=== PATIENT | female | born 1970 | race Caucasian/White ===

== ENCOUNTER 2018-04-14 00:38 | Outpatient (CLI) | payer OTHER, SELFPAY ==
--- NOTE | 2018-04-14 15:55 | DI.MAMMO_ITS ---
SYMPTOM/DIAGNOSIS: SCREENING, Z12.31 MAMMOGRAMS: Mammograms were interpreted according to the usual protocol including computer analysis with CAD system, tomosynthesis and C view imaging. Comparison is made with prior examinations. Breast density, category A. No masses or microcalcifications are seen. There is nothing to suggest malignancy. IMPRESSION: Negative mammogram. Routine screening is recommended. Category 1A. MQSA ASSESSMENT OF FINDINGS: Negative. Category 1. Patient will receive a letter notifying them of these results. BI-RAD category A. The breasts are almost entirely fatty.
[2018-04-14 16:49] LABS: ALT 101 U/L (12-78); AST 65 U/L (15-37); Albumin 4.1 g/dL (3.4-5.0); Alkaline Phosphatase 146 U/L (46-116); Anion Gap 7.4 mmol/L (3-11); BUN 12 mg/dL (7-18); Bilirubin, Total 0.3 mg/dL (0.2-1.0); CO2 31.6 mmol/L (21.0-32.0); CREATININE 0.86 mg/dL (0.55-1.02); Calcium 9.8 mg/dL (8.5-10.1); Chloride 97 mmol/L (98-107); Cholesterol 281 mg/dL (50-200); Glucose 251 mg/dL (70-100); HDL Cholesterol 57 mg/dL (40-60); LDL CHOLESTEROL 191 mg/dL (<100); Potassium 3.5 mmol/L (3.5-5.1); Sodium 136 mmol/L (136-145); Total Protein 7.9 g/dL (6.4-8.2); Triglyceride 303 mg/dL (30-150)
[2018-04-14 17:09] LABS: Hemoglobin A1C 9.7 % (4.5-6.2)
== END 2018-04-14 00:58 ==
PROVIDERS: PCP Family Medicine; Visit Provider Family Medicine
DX: Z12.31 Encounter for screening mammogram for malignant neoplasm of breast (principal); Z00.00 Encounter for general adult medical examination without abnormal findings; I10 Essential (primary) hypertension; E11.9 Type 2 diabetes mellitus without complications
CPT/HCPCS: 36415; 77063; 77067; 80053; 80061; 83721; 82043; 82570; 83036; 84443

== ENCOUNTER 2018-07-02 10:30 | Outpatient (CLI) | payer OTHER, SELFPAY ==
[2018-07-02 14:12] LABS: Hemoglobin A1C 6.8 % (4.5-6.2)
== END 2018-07-02 10:50 ==
PROVIDERS: PCP Family Medicine; Visit Provider Family Medicine
DX: E11.9 Type 2 diabetes mellitus without complications (principal)
CPT/HCPCS: 36415; 83036

== ENCOUNTER 2018-07-30 07:54 | Emergency (ER) | payer OTHER, SELFPAY ==
[2018-07-30 07:58] VITALS: BP 141/78; PULSE 72; RESP 18; TEMP 36.1; O2SAT 99
--- NOTE | 2018-07-30 08:12 | W.ED.GENAD ---
Discharge Plan Disposition Patient Disposition: HOME Condition: Improving Discharge Details Chief Complaint: RespSymp Clinical Impression: Acute bronchitis with bronchospasm Primary Care Provider: Annette Duncan ED Provider: Titus West Home Meds and New Rx's Prescriptions: New dextromethorphan-guaifenesin 10-100 mg/5 mL liquid 10 ml PO Q6H PRN (Reason: cough) Qty: 120 RF: 0 hydrocodone-acetaminophen 5-325 mg tablet 1 tab PO Q6H PRN (Reason: cough) Qty: 5 RF: 0 Continued Januvia 100 mg tablet 100 mg PO DAILY Qty: 90 RF: 5 lorazepam 0.5 mg tablet 0.5 mg PO DAILY MDD 1 PRN (Reason: agitation) Qty: 30 RF: 3 ranitidine HCl [Zantac 75] 75 mg tablet 75 mg PO BID PRN (Reason: GERD) Qty: 180 RF: 4 benzonatate 200 mg capsule 200 mg PO TID PRN (Reason: cough) Qty: 30 RF: 0 doxycycline hyclate 100 mg capsule 100 mg PO BID Qty: 14 RF: 0 Women's One Daily 1 EACH tablet 1 tab-cap PO DAILY RF: 0 blood-glucose meter 1 EACH misc 1 ea Miscellaneous ONCE Qty: 1 RF: 0 Blood Glucose Test 1 EACH strip 1 ea Miscellaneous DAILY Qty: 100 RF: 12 lancets 1 EACH misc 1 ea Miscellaneous DAILY Qty: 100 RF: 4 loratadine 10 MG tablet 10 mg PO DAILY Qty: 90 RF: 11 ProAir HFA 8.5 GM HFA aerosol inhaler 2 puff Inhalation QID PRNQty: 1 RF: 12 metformin 1,000 MG tablet 1,000 mg PO BID Qty: 180 RF: 12 lisinopril-hydrochlorothiazide 1 EACH tablet 1 tab-cap PO DAILY Qty: 90 RF: 11 estradiol 0.5 MG tablet 1 tab PO DAILY Qty: 90 RF: 3 ibuprofen 600 MG tablet 600 mg PO Q6H PRN Qty: 180 RF: 12 Blood Glucose Test strip .ROUTE .MEDSUPPLY Qty: 100 RF: 6 blood-glucose meter misc .ROUTE .MEDSUPPLY Qty: 1 RF: 0 venlafaxine [Effexor XR] 75 mg capsule,extended release 24hr 75 mg PO DAILY Qty: 90 RF: 12 Discharge Instructions Instructions: Acute Bronchitis (ED) Additional Instructions: Home to rest today. Continue the doxycycline and Tessalon as previously prescribed. May use guaifenesin for cough as well as the prescribed hydrocodone for severe persistent cough. Albuterol as needed for persistent cough with wheeze. Follow-up with clinic if not improving in 5 days time Medical Decision Making 47-year-old female presents from home with weeks of cough and now with production of green sputum and paroxysms of the coughing. She was started on doxycycline and Tessalon yesterday in the office by Dr. Elliott. She arrives with no fever, essentially normal vital signs and oxygenation. She is given DuoNeb updraft, guaifenesin by mouth, referred for chest x-ray and influenza given the differential diagnosis includes viral syndrome/flu, bronchitis, pneumonia. Influenza negative. Chest x-ray without focal infiltrate. I do feel coverage of atypical organisms with doxycycline is appropriate. I will add increased antitussive management, and inhaler to be used as needed, and discussed with her home management as well as follow-up and return precautions. HPI General Mode of arrival: ambulatory. Date/Time Provider Initiated Documentation: 07/30/18 07:55. Limitations to Documentation: no limitations. Information obtained by: patient. History of Present Illness 47 year old F presents to the emergency department with the chief complaint of Persistent cough and production of sputum. Taking doxycycline and Tessalon, described as moderate, Quality is described as aching, and is localized to the chest. Patient reports no radiation. Patient started experiencing this week(s) and it has been intermittent. No relieving factors improve symptom(s), No exacerbating factors reported . Patient notes other (Green sputum). Patient did receive the following treatments prior to arrival, other (Day 2 of doxycycline and Tessalon) HPI Narrative: Persistent cough over 2+ weeks time. Seen in clinic yesterday and started on doxycycline and Tessalon. Now worse, production of green sputum. Tolerated liquids and solids by mouth, no travel. Related Data Home Medications Medication Instructions Recorded Confirmed Women's One Daily 1 tab-cap PO DAILY tab-cap 01/04/13 07/29/18 Blood Glucose Test #100 strip 11/28/16 07/29/18 blood-glucose meter #1 ea 11/28/16 07/29/18 lancets #100 ea 11/28/16 07/29/18 loratadine 10 mg PO DAILY #90 tab-cap 12/02/17 07/29/18 ProAir HFA 2 puff INHALATION QID PRN #1 01/27/18 07/30/18 canister estradiol 1 tab PO DAILY #90 tab-cap 03/31/18 07/29/18 ibuprofen 600 mg PO Q6H PRN #180 tab-cap 03/31/18 07/29/18 lisinopril-hydrochlorothiazide 1 tab-cap PO DAILY #90 tab-cap 03/31/18 07/29/18 metformin 1,000 mg PO BID #180 tab-cap 03/31/18 07/29/18 blood sugar diagnostic strips #100 each 06/04/18 07/29/18 blood-glucose meter #1 each 06/08/18 07/29/18 lorazepam 0.5 mg tablet 0.5 mg PO DAILY PRN #30 tab MDD 1 07/07/18 07/29/18 ranitidine 75 mg tablet 75 mg PO BID PRN #180 tab 07/07/18 07/29/18 sitagliptin 100 mg tablet 100 mg PO DAILY #90 tab 07/07/18 07/29/18 venlafaxine ER 75 mg 75 mg PO DAILY #90 tab-cap 07/13/18 07/29/18 capsule,extended release 24 hr benzonatate 200 mg capsule 200 mg PO TID PRN #30 cap 07/29/18 07/30/18 doxycycline hyclate 100 mg capsule 100 mg PO BID #14 cap 07/29/18 07/30/18 dextromethorphan-guaifenesin 10 ml PO Q6H PRN #120 ml 07/30/18 hydrocodone-acetaminophen 1 tab PO Q6H PRN #5 tab 07/30/18 Previous Rx's Medication Instructions Recorded loratadine 10 mg PO DAILY #90 tab-cap 12/02/17 estradiol 1 tab PO DAILY #90 tab-cap 03/31/18 ibuprofen 600 mg PO Q6H PRN #180 tab-cap 03/31/18 lisinopril-hydrochlorothiazide 1 tab-cap PO DAILY #90 tab-cap 03/31/18 metformin 1,000 mg PO BID #180 tab-cap 08/28/18 blood sugar diagnostic strips #100 each 06/04/18 blood-glucose meter #1 each 06/08/18 lorazepam 0.5 mg tablet 0.5 mg PO DAILY PRN #30 tab MDD 1 07/07/18 ranitidine 75 mg tablet 75 mg PO BID PRN #180 tab 07/07/18 sitagliptin 100 mg tablet 100 mg PO DAILY #90 tab 07/07/18 venlafaxine ER 75 mg 75 mg PO DAILY #90 tab-cap 07/13/18 capsule,extended release 24 hr benzonatate 200 mg capsule 200 mg PO TID PRN #30 cap 07/29/18 doxycycline hyclate 100 mg capsule 100 mg PO BID #14 cap 07/29/18 dextromethorphan-guaifenesin 10 ml PO Q6H PRN #120 ml 07/30/18 hydrocodone-acetaminophen 1 tab PO Q6H PRN #5 tab 07/30/18 Allergies Allergy/AdvReac Type Severity Reaction Status Date / Time codeine AdvReac Unverified 07/29/18 08:45 General Stated Complaint: RespSymp KITA: 3 Review of Systems Review of Systems 7 systems reviewed and otherwise negative [facility] Medical History Sensorineural hearing loss, unilateral (Chronic 04/14/17) Essential hypertension (Chronic 05/28/13) Diabetes mellitus (Chronic 11/22/16) Depression (Chronic 06/18/16) Anxiety (Chronic) Coccydynia (Chronic) Coccyx disorder (Inactive 08/05/17) Anxiety Carcinoid syndrome Chronic rhinitis Coccyx pain Depression Diabetes Endometriosis Hypertension Kidney stones Plantar fascia syndrome Surgical History Abdominal hysterectomy (09/05/16) Appendectomy Bilateral salpingectomy with oophorectomy (09/05/16) Excision, Pilonidal Cyst Family History Mother Alcohol abuse Neoplasm Father No problems noted. Brother Substance abuse Alcohol abuse ADHD (attention deficit hyperactivity disorder) Grandfather Neoplasm Grandfather No problems noted. Grandmother Neoplasm Grandmother No problems noted. Social History Smoking/Tobacco Use Status: Never Exam Narrative Exam Narrative: GEN: awake, alert, oriented 3. Pleasant, well groomed, interactive. HEAD: Normocephalic, atraumatic ENT: Mucous membranes moist, oropharynx unremarkable, External ear exam unremarkable EYES: PERRL, EOMI NECK: Full ROM, no LAURA, no menigismus CHEST/RESP: Nontender, clear to auscultation bilateral, no rhonchi or rales. Patient has persistent paroxysms of cough with discrete end expiratory wheeze CARDIOVASCULAR: RRR, no murmur, rub junior. 2+ Rad pulse bilateral ABDOMEN: Soft, nontender, no mass. +Bowel sounds EXT: Full ROM, no edema, no rash Neuro: Grossly normal neurologic exam, conversant, interactive. Psych: Speech fluent, thoughts congruent, affect normal Course Vital Signs Temperature 36.1 C L 07/30/18 07:58 Pulse 72 07/30/18 07:58 Respiratory Rate 18 07/30/18 07:58 Blood Pressure 141/78 H 07/30/18 07:58 Pulse Oximetry 99 07/30/18 07:58 Temperature 36.1 C L 07/30/18 07:58 Temperature Source Temporal Artery Scan 07/30/18 07:58 Pulse 72 07/30/18 07:58 Respiratory Rate 18 07/30/18 07:58 Respiratory Effort Non-Labored 07/30/18 08:05 Blood Pressure 141/78 H 07/30/18 07:58 Blood Pressure Position Sitting 07/30/18 07:58 Pulse Oximetry 99 07/30/18 07:58 Oxygen Delivery Method Room Air 07/30/18 07:58 Oxygen Flow Rate 0 07/30/18 07:58 Pain Level 2 07/30/18 07:58
[2018-07-30] MEDS: Albuterol/Ipratropium 3 ML UPD VIAL UPD (08:18)
[2018-07-30] MEDS: guaiFENesin/D-METHORPHAN HB 5 ML CUP 10 ML PO (08:18)
--- NOTE | 2018-07-30 09:12 | DI.RAD_ITS ---
SYMPTOM/DIAGNOSIS: PERSISTENT COUGH PA AND LATERAL CHEST: The heart is normal in size. The lungs are clear. The mediastinal structures and pleura appear intact. CONCLUSION: Normal chest.
== END 2018-07-30 09:54 | disposition home or self-care (01) ==
PROVIDERS: Emergency Provider Emergency Medicine; PCP Family Medicine
DX: J20.9 Acute bronchitis, unspecified (principal); I10 Essential (primary) hypertension; E11.9 Type 2 diabetes mellitus without complications; Z79.84 Long term (current) use of oral hypoglycemic drugs
CPT/HCPCS: 87449; 94640; 99283; 71046; J7620

== ENCOUNTER 2019-05-10 01:17 | Outpatient (CLI) | payer OTHER, SELFPAY ==
--- NOTE | 2019-05-10 12:56 | DI.MAMMO_ITS ---
EXAM: MAMMO SCREENING CLINICAL HISTORY: screening Z12.39. TECHNIQUE: Mammograms were interpreted according to the usual protocol including computer analysis w [employer] CAD system, tomosynthesis and C-view imaging. COMPARISON: [id number] FINDINGS: The breasts are composed of fatty density tissue, BI-RADS category A. There are no suspicious masses or microcalcifications. There are no significant changes in comparison with the prior images. IMPRESSION: BI-RADS Cat 1 - Negative Breast Density - Category A - Almost entirely fatty
== END 2019-05-10 01:37 ==
PROVIDERS: PCP Family Medicine; Visit Provider Family Medicine
DX: Z12.31 Encounter for screening mammogram for malignant neoplasm of breast (principal)
CPT/HCPCS: 77063; 77067

== ENCOUNTER 2019-12-01 03:16 | Outpatient (CLI) | payer OTHER, SELFPAY ==
--- NOTE | 2019-12-01 06:30 | DI.US_ITS ---
EXAM: US ABDOMEN CLINICAL HISTORY: abdominal pain with BM,R10.9 TECHNIQUE: Ultrasound performed using standard protocol. COMPARISON: RENAL,PELVIS TRANSVAG US from 11/22/2016 FINDINGS: The liver shows increased echogenicity and decreased through transmission consistent with hepatic jeremy atosis. Dependent portions of the liver are nonvisualized. No focal abnormality seen. There is no evidence of cholelithiasis or biliary dilatation. Visualized portions of the pancreas are unremarkable. Kidneys appear normal with no evidence of hydronephrosis or nephrolithiasis. Abdominal aorta and IVC are of normal diameter. Spleen is unremarkable in appearance. IMPRESSION: Probable hepatic steatosis. No evidence of cholelithiasis. DATA REPOSITORY:
== END 2019-12-01 03:36 ==
PROVIDERS: PCP Family Medicine; Visit Provider Family Medicine
DX: R10.9 Unspecified abdominal pain (principal); K76.0 Fatty (change of) liver, not elsewhere classified; R19.8 Other specified symptoms and signs involving the digestive system and abdomen
CPT/HCPCS: 76700

== ENCOUNTER 2020-03-06 13:02 | Outpatient (CLI) | payer OTHER, SELFPAY ==
[2020-03-08 05:43] LABS: SARS-CoV-2 RNA Undetected (Undetected); SARS-CoV-2 Specimen Source Nasopharynx
== END 2020-03-06 13:22 ==
PROVIDERS: PCP Family Medicine; Visit Provider Family Medicine
DX: R05 Cough (principal)
CPT/HCPCS: U0003

== ENCOUNTER 2020-05-16 12:29 | Outpatient (CLI) | payer OTHER, SELFPAY ==
--- NOTE | 2020-05-16 12:24 | DI.RAD_ITS ---
EXAM: XR FOOT LT COMPLETE CLINICAL HISTORY: left lateral foot pain/no trauma M79.673 PAIN. TECHNIQUE: 2D digital imaging was performed. COMPARISON: No exams were available for comparison FINDINGS: BONES: No acute fracture is present. No bony destructive lesion is seen. Small heel spurs are seen. There is a small accessory navicular as well as an ossicle adjacent to the cuboid. JOINTS: No dislocation present. SOFT TISSUE: Normal. IMPRESSION: Unremarkable radiographs of the left foot. DATA REPOSITORY: RADIATION DOSE DELIVERED:
== END 2020-05-16 12:49 ==
PROVIDERS: PCP Family Medicine; Visit Provider Family Medicine
DX: M79.672 Pain in left foot (principal)
CPT/HCPCS: 73630

== ENCOUNTER 2020-05-30 02:38 | Outpatient (CLI) | payer OTHER, SELFPAY ==
[2020-05-30 17:34] LABS: Microalb ug/mg Crea 23.8 ug/mg Cr
[2020-05-30 17:46] LABS: ALT 47 U/L (14-59); AST 20 U/L (15-37); Albumin 3.8 g/dL (3.4-5.0); Alkaline Phosphatase 123 U/L (46-116); Anion Gap 7.1 mmol/L (3-11); BUN 18 mg/dL (7-18); Bilirubin, Total 0.3 mg/dL (0.2-1.0); CO2 28.9 mmol/L (21.0-32.0); CREATININE 0.61 mg/dL (0.55-1.02); Calcium 9.6 mg/dL (8.5-10.1); Chloride 98 mmol/L (98-107); Glucose 237 mg/dL (74-106); Potassium 3.5 mmol/L (3.5-5.1); Sodium 134 mmol/L (136-145); Total Protein 7.1 g/dL (6.4-8.2)
[2020-05-30 17:51] LABS: Hemoglobin A1C 8.8 % (<5.7)
== END 2020-05-30 02:58 ==
PROVIDERS: PCP Family Medicine; Visit Provider Family Medicine
DX: Z00.00 Encounter for general adult medical examination without abnormal findings (principal); E11.9 Type 2 diabetes mellitus without complications; F32.9 Major depressive disorder, single episode, unspecified; I10 Essential (primary) hypertension
CPT/HCPCS: 36415; 80053; 82043; 82570; 83036

== ENCOUNTER 2020-06-05 02:20 | Outpatient (CLI) | payer OTHER, SELFPAY ==
--- NOTE | 2020-06-05 06:15 | DI.MAMMO_ITS ---
EXAM: MG MAMMO SCREENING CLINICAL HISTORY: screening,Z12.39 TECHNIQUE: Bilateral full field digital CC and MLO mammographic images were obtained with 3D tomosyn thesis and utilizing computer aided detection (CAD). COMPARISON: Available for comparison. FINDINGS: Masses/Architectural Distortion: None seen. There is a biopsy clip again seen in the upper outer quad rant of the right breast. Microcalcifications: No suspicious pleomorphic-type are seen. Skin Thickening/Nipple Retraction: None. IMPRESSION: 1. No significant interval change with no specific features of malignancy noted. 2. Unless there is more urgent need, screening mammography is recommended, as per [employer] guidelines. BI-RADS Category 1 - Negative Breast Density - Category A - Almost entirely fatty A negative radiographic report should not delay biopsy if a dominant or clinically suspicious mass is present. Up to ten percent of cancers are not identified on mammography. A negative report may reinforce clinical impression. Adenosis and dense breasts may obscure an underlying neoplasm. False positive reports average 6 to 10%. Patient will receive a letter notifying them of these results.
== END 2020-06-05 02:40 ==
PROVIDERS: PCP Family Medicine; Visit Provider Family Medicine
DX: Z12.31 Encounter for screening mammogram for malignant neoplasm of breast (principal)
CPT/HCPCS: 77063; 77067

== ENCOUNTER 2020-07-05 03:09 | Outpatient (CLI) | payer OTHER, SELFPAY ==
[2020-07-07 09:37] LABS: COVID-19 RT-PCR Result NEGATIVE (Negative)
== END 2020-07-05 03:29 ==
PROVIDERS: PCP Family Medicine; Visit Provider Family Medicine
DX: Z11.59 Encounter for screening for other viral diseases (principal)
CPT/HCPCS: U0003

== ENCOUNTER 2020-11-29 03:31 | Outpatient (CLI) | payer OTHER, SELFPAY ==
[2020-11-29 12:40] LABS: COMMENT (LAB VIEW ONLY) 71.91 mg/dL; Microalb ug/mg Crea 8.3 ug/mg Cr
[2020-11-29 12:43] LABS: ALT 41 U/L (14-59); AST 20 U/L (15-37); Alkaline Phosphatase 99 U/L (46-116); Anion Gap 8.7 mmol/L (3-11); BUN 12 mg/dL (7-18); Bilirubin, Total 0.5 mg/dL (0.2-1.0); CO2 29.3 mmol/L (21.0-32.0); CREATININE 0.7 mg/dL (0.55-1.02); Calcium 9.6 mg/dL (8.5-10.1); Chloride 101 mmol/L (98-107); Glucose 142 mg/dL (74-106); Potassium 3.8 mmol/L (3.5-5.1); Sodium 139 mmol/L (136-145); Total Protein 7.2 g/dL (6.4-8.2)
[2020-11-29 12:59] LABS: Hemoglobin A1C 9.2 % (<5.7)
== END 2020-11-29 03:32 | disposition home or self-care (01) ==
LOC: LOS 03:31
PROVIDERS: PCP Family Medicine; Visit Provider Family Medicine
DX: E11.9 Type 2 diabetes mellitus without complications (principal); I10 Essential (primary) hypertension
CPT/HCPCS: 36415; 80053; 82043; 82570; 83036

== ENCOUNTER 2021-03-06 04:12 | Outpatient (CLI) | payer OTHER, SELFPAY ==
[2021-03-06 10:11] LABS: Hemoglobin A1C 7.9 % (<5.7)
== END 2021-03-06 04:13 | disposition home or self-care (01) ==
LOC: LBO 04:12
PROVIDERS: PCP Family Medicine; Visit Provider Family Medicine
DX: E11.9 Type 2 diabetes mellitus without complications (principal)
CPT/HCPCS: 36415; 83036

== ENCOUNTER 2021-06-22 13:20 | Emergency (ER) | payer OTHER, SELFPAY ==
[2021-06-22 13:25] VITALS: BP 154/86; PULSE 103; RESP 18; TEMP 36.2; O2SAT 98
[2021-06-22] MEDS: Normal Saline 1,000 ML 1000 ML IV (13:45)
--- NOTE | 2021-06-22 13:45 | DI.CT_ITS ---
Exam(s) CT ABDOMEN PELVIS W EXAM: CT ABDOMEN PELVIS W INDICATION: L abd pain, hematochezia. COMPARISON: CT SACRUM AND/OR COCCYX WO from 08/08/2017 TECHNIQUE: FINDINGS: CT examination of the abdomen and pelvis was performed with a bolus infusion of 100 cc of Omnipaque 3 50. Images obtained through the lung bases are unremarkable. The liver is of homogeneously decreased attenuation consistent with hepatic steatosis.. Gallbladder and bile ducts are CT normal. Pancreas appears normal. Spleen is unremarkable in appearance. Adr right adrenal appears normal. Left adrenal contains a heterogeneous lobulated mass measuring up to about 5.5 cm in diameter. This shows intermediate attenuation, averaging 40-60 Hounsfield units. Follow-up adrenal protocol CT recommended. The kidneys are unremarkable with no evidence of hydronephrosis, nephrolithiasis, or renal mass.. Ur inary bladder unremarkable. Abdominal aorta is of normal diameter and no major vascular abnormality is seen. No abdominal wall hernia. No abdominal or pelvic adenopathy. The uterus appears to be atrophic or absent. There is small quantity of free fluid in the pelvis. Appendix is normal. No evidence of diverticulitis or bowel obstruction. There is marked colonic wall edema involving descending colon, the findings are suggestive of colitis. There is mild pericolonic fat edema noted. IMPRESSION: There are findings suggestive of colitis of the descending colon. Left adrenal mass noted, indeterminate for malignancy, adrenal protocol CT recommended. RADIATION DOSE DELIVERED: 1,125.64mGy.cm Total DLP 1,125.64mGy.cm Total DLP CTDIvol RADIATION OPTIMIZATION: All CT scans at this facility use at least one of these dose optimization te chniques: automated exposure control; mA and/or kV adjustment per patient size (includes targeted exa ms where dose is matched to clinical indication); or iterative reconstruction.
--- NOTE | 2021-06-22 13:51 | W.ED.GENAD ---
Discharge Plan Disposition Patient Disposition: HOME Condition: Stable Discharge Details Clinical Impression: Colitis, Hypokalemia, Lesion of adrenal gland Primary Care Provider: Annette Duncan ED Provider: Florentino Gillespie Home Meds and New Rx's Prescriptions: Continued famotidine [Pepcid] 20 mg tablet 20 mg PO DAILY Qty: 90 RF: 4 mupirocin 2 % ointment 1 applic TP BID PRN (Reason: sore) RF: 0 Humulin 70/30 U-100 KwikPen 100 unit/mL (70-30) insulin pen 25 unit subcut QAM Qty: 15 RF: 4 Women's One Daily 1 EACH tablet 1 tab-cap PO DAILY RF: 0 (DME) blood-glucose meter 1 EACH misc 1 ea Miscellaneous ONCE Qty: 1 RF: 0 (DME) lancets 1 EACH misc 1 ea Miscellaneous DAILY Qty: 100 RF: 4 (DME) Blood Glucose Test Strip 1 ea Miscellaneous DAILY Qty: 100 RF: 4 (DME) Blood Glucose Test Strip See Rx Instructions .ROUTE .MEDSUPPLY Qty: 100 RF: 5 metformin 1,000 mg tablet See Rx Instructions PO BID Qty: 270 RF: 12 ibuprofen 600 mg tablet 600 mg PO Q6H PRN Qty: 180 RF: 12 loratadine 10 mg tablet 10 mg PO DAILY Qty: 90 RF: 11 fluticasone propionate 50 mcg/actuation spray,suspension 2 spray ROCK DAILY Qty: 19.8 RF: 5 lisinopril-hydrochlorothiazide 20-25 mg tablet 1 tab PO DAILY Qty: 90 RF: 11 lorazepam 0.5 mg tablet 0.5 mg PO DAILY MDD 1 PRN (Reason: agitation) Qty: 30 RF: 1 semaglutide 1 mg/dose (2 mg/1.5 mL) pen injector 1 mg SC QWEEK Qty: 15 RF: 5 venlafaxine [Effexor XR] 75 mg capsule,extended release 24hr 75 mg PO DAILY Qty: 90 RF: 12 estradiol 0.5 mg tablet 0.5 mg PO DAILY Qty: 90 RF: 3 albuterol sulfate 90 mcg/actuation aerosol powdr breath activated 2 puff IH Q6H PRN (Reason: bronchospasm) Qty: 1 RF: 0 Discontinued gabapentin 300 mg capsule 300 mg PO TID RF: 0 black cohosh 540 mg capsule See Rx Instructions PO DAILY RF: 0 hydroxyzine HCl 50 mg tablet 50 mg PO Q6H PRN (Reason: itching) Qty: 60 RF: 0 methocarbamol 750 mg tablet 750 mg PO TID Qty: 60 RF: 0 Discharge Instructions Instructions: Hypokalemia (ED), Colitis (ED) Additional Instructions: Please return the stool sample to have stool tested for bacteria. Maintain a clear liquid diet tonight and tomorrow morning and advance diet to bland food tomorrow afternoon as tolerated. Please contact your primary care physician to arrange follow-up. Call on Friday. Be sure to follow-up regarding CT imaging -- additional outpatient diagnostic testing is necessary. Return to the ER for any worsening or new concerning symptoms. Referrals: [facility] [Provider Group] Annette Duncan MD, [place] [Primary Care Provider] - Discharge Data Discharge Date/Time-TO BE ENTERED AT DEPARTURE: 06/22/21 18:23 Medical Decision Making <Titus West MD - Last Filed: 06/22/21 14:58> 50-year-old female states that she has had intermittent episodes of abdominal pain and hematochezia for 3 to 4 years time. Now here in the emergency department after referral from local urgent care where she presented with 3 to 4 days of abdominal discomfort that began with few episodes of emesis that extinguish on its own. She now has had 3 days of left-sided abdominal pain that is crampy, rated 3 out of 10, comes and goes, associated with loose and watery stools and some bright red blood per rectum. No syncope or chest pain. She has not had a fever. Denies any specific food that may have incited this. She arrives to the ER well-appearing and in no significant distress. She is tender in the left side of the abdomen. Differential diagnosis includes colitis, diverticulitis, mass. Patient IV access established, screening laboratories obtained and referred for oral and IV contrast enhanced CT scan. Laboratories: White blood cell count of 13.8, hematocrit 41.8, platelets 345. Chemistry with sodium 136, potassium 2.9, chloride 97, bicarb 31, BUN 70, creatinine 0.7. Glucose 244, LFTs unremarkable. Patient received potassium supplementation for a total of 30 mEq. As the patient is pending CT images at time of shift change, will sign out to Dr Gillespie pending CT and repeat evaluation. <Florentino Gillespie MD - Last Filed: 06/22/21 23:14> 3 PM??care signed out by Dr. West plan to follow-up on CT. CT of the abdomen pelvis was interpreted by radiology: IMPRESSION: 1. Findings of mild colitis of the proximal descending colon. This may be infectious in etiology or could represent inflammatory bowel disease. Recommend clinical correlation. 2. Status post hysterectomy. 3. New small amount of free fluid in the pelvis. 4. 2.3 x 3.9 cm left adrenal nodule, which is indeterminate. Non-emergent adrenal CT is recommended. (Reference: [facility]) 5. Stable 0.9 x 1.3 cm lesion within the left iliac bone, suggesting a benign hemangioma. All results were discussed with the patient. History and diagnostic consistent with likely inflammatory bowel disease. Unlikely infectious etiology given history however I will order fecal bacterial pathogens and C. difficile testing. Patient will need follow-up colonoscopy which I will ask care management to help arrange. I encouraged her to follow-up with her primary care physician on Friday. She understands CT findings will require timely diagnostic follow-up as an outpatient. Patient was encouraged to maintain a clear liquid diet tonight and tomorrow to allow for bowel rest and advance to bland soft diet tomorrow afternoon. Usual customary discharge instructions were reviewed with the patient. HPI <Titus West MD - Last Filed: 06/22/21 14:58> General Mode of arrival: ambulatory. Date/Time Provider Initiated Documentation: 06/22/21 13:20. Limitations to Documentation: no limitations. Information obtained by: patient. History of Present Illness 50 year old F presents to the emergency department with the chief complaint of Left side abdominal pain, diarrhea, bloody rectal effluent, described as moderate, Quality is described as dull, and is localized to the abdomen and left. Patient reports no radiation. Patient started experiencing this day(s) and it has been intermittent. No relieving factors improve symptom(s), No exacerbating factors reported . Patient notes denies fever/chills. Patient did receive the following treatments prior to arrival, none Related Data Home Medications Medication Instructions Recorded Confirmed Women's One Daily 1 tab-cap PO DAILY tab-cap 01/04/13 06/22/21 blood-glucose meter #1 ea 11/28/16 03/08/21 lancets #100 ea 11/28/16 03/08/21 albuterol sulfate 2 puff IH Q6H PRN #1 each 07/30/18 06/22/21 blood sugar diagnostic #100 strip 08/23/19 03/08/21 blood sugar diagnostic #100 ea 04/13/20 03/08/21 metformin 1,000 mg tablet See Rx Instructions PO BID #270 05/11/20 06/22/21 tab-cap ibuprofen 600 mg tablet 600 mg PO Q6H PRN #180 tab-cap 05/30/20 06/22/21 loratadine 10 mg tablet 10 mg PO DAILY #90 tab-cap 05/30/20 06/22/21 fluticasone propionate 50 2 spray ROCK DAILY #19.8 gm 06/22/20 06/22/21 mcg/actuation nasal spray,suspension lisinopril 20 1 tab PO DAILY #90 tab-cap 08/09/20 06/22/21 mg-hydrochlorothiazide 25 mg tablet insulin NPH-regular 70-30 U-100 25 unit SUBCUT QAM #15 ml 10/16/20 06/22/21 insulin 100 unit/mL subcutaneous pen famotidine 20 mg tablet 20 mg PO DAILY #90 tab 11/14/20 06/22/21 lorazepam 0.5 mg tablet 0.5 mg PO DAILY PRN #30 tab MDD 1 11/16/20 06/22/21 semaglutide 1 mg/dose (2 mg/1.5 1 mg SC QWEEK #15 ml 12/05/20 06/22/21 mL) subcutaneous pen injector mupirocin 2 % topical ointment 1 applic TP BID PRN gm 03/08/21 06/22/21 estradiol 0.5 mg tablet 0.5 mg PO DAILY #90 tab-cap 04/10/21 06/22/21 venlafaxine 75 mg capsule,extended 75 mg PO DAILY #90 tab-cap 04/10/21 06/22/21 release 24 hr Previous Rx's Medication Instructions Recorded albuterol sulfate 2 puff IH Q6H PRN #1 each 07/30/18 blood sugar diagnostic #100 strip 08/23/19 blood sugar diagnostic #100 ea 04/13/20 metformin 1,000 mg tablet See Rx Instructions PO BID #270 05/11/20 tab-cap ibuprofen 600 mg tablet 600 mg PO Q6H PRN #180 tab-cap 05/30/20 loratadine 10 mg tablet 10 mg PO DAILY #90 tab-cap 05/30/20 fluticasone propionate 50 2 spray ROCK DAILY #19.8 gm 06/22/20 mcg/actuation nasal spray,suspension lisinopril 20 1 tab PO DAILY #90 tab-cap 08/09/20 mg-hydrochlorothiazide 25 mg tablet insulin NPH-regular 70-30 U-100 25 unit SUBCUT QAM #15 ml 10/16/20 insulin 100 unit/mL subcutaneous pen famotidine 20 mg tablet 20 mg PO DAILY #90 tab 11/14/20 lorazepam 0.5 mg tablet 0.5 mg PO DAILY PRN #30 tab MDD 1 11/16/20 semaglutide 1 mg/dose (2 mg/1.5 1 mg SC QWEEK #15 ml 12/05/20 mL) subcutaneous pen injector estradiol 0.5 mg tablet 0.5 mg PO DAILY #90 tab-cap 04/10/21 venlafaxine 75 mg capsule,extended 75 mg PO DAILY #90 tab-cap 04/10/21 release 24 hr Allergies Allergy/AdvReac Type Severity Reaction Status Date / Time codeine AdvReac Intermediate Nausea Verified 06/22/21 13:28 General Stated Complaint: Abd Prob KITA: 3 Review of Systems <Titus West MD - Last Filed: 06/22/21 14:58> Narrative: Reports similar episodes once or twice a month for the past 3 to 4 years time. No inciting or worsening factors. Denies fever or chills. No longer having vomiting. Loose watery stools. Eight systems reviewed and otherwise negative PFSH <Titus West MD - Last Filed: 06/22/21 14:58> Active Problem List Uncontrolled diabetes mellitus (Acute) Herpes zoster (Acute) Upper back pain on right side (Acute) Neuroma (Acute) Foot pain (Acute) Diverticula of colon (Acute) Encounter for annual physical exam (Acute 06/05/15) Shoulder pain (Acute) Sensorineural hearing loss, unilateral (Chronic 04/14/17) Essential hypertension (Chronic 05/28/13) Diabetes mellitus (Chronic 11/22/16) Depression (Chronic 06/18/16) Anxiety (Chronic) Annual physical exam (Acute 06/05/15) Coccydynia (Chronic) Medical History Abdominal pain (07/03/05) Anemia (03/11/13) Anxiety Breast lump (10/09/10) Bronchitis Calculus of kidney (03/10/14) Carcinoid syndrome Carcinoid syndrome Chronic rhinitis Coccyx disorder (08/05/17) Coccyx pain Depression Diabetes Dysfunctional uterine bleeding (10/09/10) Dysmenorrhea (07/19/15) Encounter for routine gynecological examination (06/05/15) Endometriosis Endometriosis (07/19/15) Epicondylitis Fatigue Hypertension Kidney stones Plantar fascia syndrome 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 Grandmother Neoplasm BREAST Social History Smoking/Tobacco Use Status: Never Second Hand Exposure: Yes Smoking risk assessment performed?: Yes Alcohol Intake: current Drug use: Occasionally Substance use type: other Details: THC Guumm[employer] Caregiver/Support person: No Household members: spouse Housing: house Communication Needs: None Do you need help understanding health information?: Never Pets and animals: Yes Pets and animals: dog(s) Sexually active: Yes Do you think of yourself as: straight/heterosexual Current gender identity: female What is your relationship status?: How often do you talk on the phone with friends or family?: never How often do you attend buddhism or judaism services?: decline to answer Do you belong to any clubs or organized social groups?: no Panel score (0-1 are the most socially isolated patients): 1 What type of physical activity do you participate in: walking Duration: 15-30 minutes/day Frequency: 3-4 times per week Special tea needs: No Seatbelt use: always Drive intox or ride w/intox driver's education instructor: No Do you feel safe at home: Yes Do you feel safe in your relationship?: Yes Exam <Titus Wset MD - Last Filed: 06/22/21 14:58> Narrative Exam Narrative: GEN: awake, alert, oriented 3. Pleasant, well groomed, interactive. HEAD: Normocephalic, atraumatic ENT: Mucous membranes moist, oropharynx unremarkable, External ear exam unremarkable EYES: PERRL, EOMI NECK: Full ROM, no LAURA, no menigismus CHEST/RESP: Nontender, clear to auscultation bilateral, no wheeze/rhonchi/rales CARDIOVASCULAR: Regular and borderline tachycardic, no murmur, rub junior. 2+ Rad pulse bilateral ABDOMEN: Soft, tender left abdomen with no sign of rebound appreciated, no mass. +Bowel sounds EXT: Full ROM, no edema, no rash Neuro: Grossly normal neurologic exam, conversant, interactive. Psych: Speech fluent, thoughts congruent, affect normal Course <Titus West MD - Last Filed: 06/22/21 14:58> Vital Signs Vital signs: Vital Signs Temperature 36.2 C L 06/22/21 13:25 Pulse 103 H 06/22/21 13:25 Respiratory Rate 18 06/22/21 13:25 Blood Pressure 154/86 H 06/22/21 13:25 Pulse Oximetry 98 06/22/21 13:25 Temperature 36.2 C L 06/22/21 13:25 Temperature Source Skin 06/22/21 13:25 Pulse 103 H 06/22/21 13:25 Respiratory Rate 18 06/22/21 13:25 Respiratory Effort Non-Labored 06/22/21 13:31 Blood Pressure 154/86 H 06/22/21 13:25 Pulse Oximetry 98 06/22/21 13:25 Pain Level 3 06/22/21 13:25 Lab/Test Results Lab/Test Results: POC- Test(urine) Negative Sign Out <Titus West MD - Last Filed: 06/22/21 14:58> Sign Out Data: Sign Out Comment: L abd pain, hematochezia. Followup CT. Last updated by Titus West MD at 06/22/21 14:58
[2021-06-22 13:53] LABS: Bilirubin Negative (Negative); Blood Negative (Negative); Clarity Clear (Clear); Glucose >=1000 mg/dL (Negative); Ketones 40 mg/dL (Negative); Leukocyte Esterase Negative (Negative); Nitrite Negative (Negative); Urobilinogen 0.2 EU/dL (Up TO 0.2)
[2021-06-22 14:10] LABS: Abs Immature Grans 0.04 10^3/uL (0.0-0.06); Absolute Basophil Count 0.04 10^3/uL (0.0-0.2); Absolute Lymphocyte Count 3.92 10^3/uL (1.2-3.4); Absolute Monocyte Count 0.86 10^3/uL (0.1-0.8); Absolute Neutrophil Count 8.82 10^3/uL (1.2-6.7); Basophils % 0.3; Eosinophils % 0.9; HCT 41.8 % (36.0-46.0); HGB 14.2 g/dL (11.2-15.7); Immature Grans % 0.3; Lymphocytes % 28.4; MCH 27.7 pg (27.0-33.0); MCV 81.6 fL (80-95); MPV 9.7 fL (8.0-11.0); Monocytes % 6.2; Neutrophils % 63.9; Nucleated RBC 0 %; Platelet Count 345 10^3/uL (130-400); RBC 5.12 10^6/uL (3.93-5.22); RDW 11.9 % (11.7-14.6); RDW-SD 35.4 fL; WBC 13.81 10^3/uL (4.4-10.8)
[2021-06-22 14:11] LABS: Absolute Eosinophil Count 0.12 10^3/uL (0.0-0.7)
[2021-06-22 14:19] LABS: ALT 41 U/L (14-59); AST 19 U/L (15-37); Albumin 3.6 g/dL (3.4-5.0); Alkaline Phosphatase 110 U/L (46-116); Anion Gap 7.6 mmol/L (3-11); BUN 17 mg/dL (7-18); Bilirubin, Total 0.4 mg/dL (0.2-1.0); CO2 31.4 mmol/L (21.0-32.0); CREATININE 0.7 mg/dL (0.55-1.02); Calcium 9.2 mg/dL (8.5-10.1); Chloride 97 mmol/L (98-107); Glucose 244 mg/dL (74-106); Magnesium 1.9 mg/dL (1.8-2.4); Sodium 136 mmol/L (136-145); Total Protein 7.4 g/dL (6.4-8.2)
[2021-06-22 14:21] LABS: Potassium 2.9 mmol/L (3.5-5.1)
[2021-06-22] MEDS: ACETAMINOPHEN 1,000 MG/100 ML BTL 400 MG IVPB (14:23)
[2021-06-22] MEDS: Potassium Chloride Liquid 20 MEQ PKT PO (14:31)
[2021-06-22] MEDS: POTASSIUM CHLORIDE 10 MEQ/100 ML BAG 100 MEQ IVPB (14:31)
[2021-06-22 15:49] VITALS: BP 149/82; PULSE 85; TEMP 36.1; O2SAT 100
[2021-06-22] MEDS: Normal Saline - Diluent 50 ML VIAL IV (16:11)
[2021-06-22] MEDS: Omnipaque 350 MG/ML 100 ML BTL IJ (16:19)
[2021-06-22] MEDS: Breeza Beverage 473 ML BTL 946 ML PO (16:22)
--- NOTE | 2021-06-22 17:05 | DI.VRAD_ITS ---
PROCEDURE INFORMATION: Exam: CT Abdomen And Pelvis With Contrast Exam date and time: 06/22/2021 4:08 PM Age: 50 years old Clinical indication: Abdominal pain; Localized; Patient HX: Left abdomen pain, hematochezia TECHNIQUE: Imaging protocol: Computed tomography of the abdomen and pelvis with contrast. COMPARISON: MRI - PELVIS WO CONTRAST 01/06/2018 2:41 PM FINDINGS: Liver: Normal. No mass. Gallbladder and bile ducts: Normal. No calcified stones. No ductal dilation. Pancreas: Normal. No ductal dilation. Spleen: Normal. No splenomegaly. Adrenal glands: There is a 2.3 x 3.9 cm left adrenal nodule which demonstrates a density of 61 Hounsfield units on this postcontrast scan. This nodule demonstrates mild heterogeneity. Kidneys and ureters: There is a tiny subcentimeter left renal lesion which is too small to characterize but likely represents a benign cyst. There are multifocal regions of renal cortical scarring involving both kidneys, left greater than right. No renal or ureteral stones are identified. There is no hydronephrosis or hydroureter. Stomach and bowel: There is edematous wall thickening of the colon from the proximal descending colon through the mid-distal descending colon, with surrounding mild fat stranding, consistent with mild colitis in this region. There is no evidence for bowel obstruction. Appendix: No evidence of appendicitis. Intraperitoneal space: There is new small amount of free fluid in the pelvis measuring up to 3.9 x 5.5 cm, as seen on image 792, series 5. Vasculature: The aorta and iliac arteries demonstrate mild atherosclerotic calcification without aneurysm formation. Lymph nodes: Unremarkable. No enlarged lymph nodes. Urinary bladder: No bladder stones are identified. Reproductive: There has been a hysterectomy. Bones/joints: There is mild spondylosis at multiple lower thoracic and lumbar levels as well as mild facet arthrosis of the lower lumbar spine. No acute fractures are identified. There is a stable 0.9 x 1.3 cm lesion within the left iliac bone which demonstrates some thickened trabecula within it and may represent a benign hemangioma. Soft tissues: Unremarkable. IMPRESSION: 1. Findings of mild colitis of the proximal descending colon. This may be infectious in etiology or could represent inflammatory bowel disease. Recommend clinical correlation. 2. Status post hysterectomy. 3. New small amount of free fluid in the pelvis. 4. 2.3 x 3.9 cm left adrenal nodule, which is indeterminate. Non-emergent adrenal CT is recommended. (Reference: [facility]) 5. Stable 0.9 x 1.3 cm lesion within the left iliac bone, suggesting a benign hemangioma. REFERENCES: Radha WRIGHT, et al. Management of Incidental Adrenal Masses: A White Paper of the ACR Incidental Findings Committee. J Am Brendan Radiol. 2017;14(8):4418-6849. Dictated and Authenticated by: Phan Mcpherson MD. Ordering:LÁZARO Qureshi MD
[2021-06-22 17:45] VITALS: BP 159/83; PULSE 91; RESP 18; TEMP 36.1; O2SAT 97
--- NOTE | 2021-06-22 17:46 | NUR.NOTE ---
Pt return from [facility], unable to give stool sample at this time, VSS, NAD, warm blanket given, call butler within reach.
[2021-06-22 18:10] VITALS: BP 159/83; PULSE 91; RESP 18; TEMP 36.1; O2SAT 97
== END 2021-06-22 18:23 | disposition home or self-care (01) ==
PROVIDERS: Emergency Medicine; Emergency Provider Student in an Organized Health Care Education/Training Program; PCP Family Medicine
DX: K52.9 Noninfective gastroenteritis and colitis, unspecified (principal); E87.6 Hypokalemia; E27.8 Other specified disorders of adrenal gland; R10.9 Unspecified abdominal pain
CPT/HCPCS: 80053; 81025; 86850; 86900; 86901; 96361; 96365; 96375; 99285; 74177; 81003; 83735; 85025; 99284; J0131; J3480; J3490

== ENCOUNTER 2021-06-27 12:48 | Outpatient (REF) | payer OTHER, SELFPAY ==
[2021-06-27 23:17] LABS: C Diff PCR Negative (Negative)
[2021-06-29 23:21] LABS: Campylobacter PCR Negative (Negative); Salmonella PCR Negative (Negative); Shiga Toxin PCR Negative (Negative); Shigella/Enteroinvasive Ecoli Negative (Negative)
== END 2021-06-27 12:49 | disposition home or self-care (01) ==
LOC: LBN 12:48
PROVIDERS: PCP Family Medicine; Visit Provider Family Medicine
DX: K52.9 Noninfective gastroenteritis and colitis, unspecified (principal)
CPT/HCPCS: 87329; 87493; 87505; 83630; 86674

== ENCOUNTER 2021-07-12 02:35 | Outpatient (CLI) | payer OTHER, SELFPAY ==
[2021-07-12 09:36] LABS: Abs Immature Grans 0.03 10^3/uL (0.0-0.06); Absolute Basophil Count 0.05 10^3/uL (0.0-0.2); Absolute Eosinophil Count 0.16 10^3/uL (0.0-0.7); Absolute Lymphocyte Count 3.54 10^3/uL (1.2-3.4); Absolute Monocyte Count 0.51 10^3/uL (0.1-0.8); Absolute Neutrophil Count 6.27 10^3/uL (1.2-6.7); Basophils % 0.5; Eosinophils % 1.5; HCT 42.1 % (36.0-46.0); HGB 14.1 g/dL (11.2-15.7); Immature Grans % 0.3; Lymphocytes % 33.5; MCH 27.6 pg (27.0-33.0); MCHC 33.5 % (32.0-36.0); MCV 82.5 fL (80-95); MPV 9.5 fL (8.0-11.0); Monocytes % 4.8; Neutrophils % 59.4; Nucleated RBC 0 %; Platelet Count 363 10^3/uL (130-400); RDW-SD 36.1 fL; WBC 10.56 10^3/uL (4.4-10.8)
[2021-07-12 10:30] LABS: C-Reactive Protein 0.99 mg/dL (0.0-0.3); TSH 1.22 uIU/mL (0.36-3.74)
[2021-07-12 10:45] LABS: Vitamin D 25 Total 13.9 ng/mL (30-100)
[2021-07-12 10:48] LABS: Hemoglobin A1C 7.8 % (<5.7)
[2021-07-13 14:16] LABS: ANCA Interpretation Negative (Negative)
[2021-07-13 14:17] LABS: ANA Interpretation Negative (Negative)
== END 2021-07-12 02:36 | disposition home or self-care (01) ==
LOC: LBO 02:35
PROVIDERS: PCP Family Medicine; Visit Provider Surgery
DX: E11.9 Type 2 diabetes mellitus without complications (principal); K52.9 Noninfective gastroenteritis and colitis, unspecified; K62.5 Hemorrhage of anus and rectum; R10.32 Left lower quadrant pain; R93.3 Abnormal findings on diagnostic imaging of other parts of digestive tract
CPT/HCPCS: 36415; 82306; 86255; 87635; 83036; 84443; 85025; 86038; 86140

== ENCOUNTER 2021-07-13 15:28 | Outpatient (REF) | payer OTHER, SELFPAY ==
[2021-07-16 15:39] LABS: Urine Volume 1550 mL; VMA, Adult (>14y) 3.6 mg/24 h (<8.0)
[2021-07-17 08:53] LABS: 5-Hydroxyindoleacetic Acid, U 4.3 mg/24 h (<=7.6); Urine Volume 1550 mL
[2021-07-19 00:04] LABS: Urine Volume 1550 mL
== END 2021-07-13 15:29 | disposition home or self-care (01) ==
LOC: LBN 15:28
PROVIDERS: PCP Family Medicine; Visit Provider Surgery
DX: E11.9 Type 2 diabetes mellitus without complications; E27.8 Other specified disorders of adrenal gland; I10 Essential (primary) hypertension; K52.9 Noninfective gastroenteritis and colitis, unspecified; K62.5 Hemorrhage of anus and rectum; R10.32 Left lower quadrant pain; R93.3 Abnormal findings on diagnostic imaging of other parts of digestive tract; R19.7 Diarrhea, unspecified; R63.4 Abnormal weight loss
CPT/HCPCS: 81050; 82530; 83497; 83789; 84585

== ENCOUNTER 2021-07-17 14:00 | Outpatient (REF) | payer OTHER, SELFPAY ==
[2021-07-21 12:17] LABS: Calprotectin 17.7 mcg/g
== END 2021-07-17 14:01 | disposition home or self-care (01) ==
LOC: LBN 14:00
PROVIDERS: Surgery; PCP Family Medicine; Visit Provider Family Medicine
DX: E11.65 Type 2 diabetes mellitus with hyperglycemia (principal); E27.8 Other specified disorders of adrenal gland; I10 Essential (primary) hypertension; K52.9 Noninfective gastroenteritis and colitis, unspecified; R10.32 Left lower quadrant pain
CPT/HCPCS: 83630; 83993

== ENCOUNTER 2021-07-18 00:59 | Outpatient (CLI) | payer OTHER, SELFPAY ==
[2021-07-18 11:25] LABS: Source Nasal/Nares
[2021-07-18 14:02] LABS: COVID-19 PCR Negative (Negative)
== END 2021-07-18 01:00 | disposition home or self-care (01) ==
LOC: LBO 00:59
PROVIDERS: PCP Family Medicine; Visit Provider Surgery
DX: Z20.822 Contact with and (suspected) exposure to COVID-19 (principal)
CPT/HCPCS: 87635

== ENCOUNTER 2021-07-20 08:11 | Day surgery (SDC) | payer OTHER, SELFPAY ==
--- NOTE | 2021-07-19 22:25 | PDOC.DSDIS_ITS ---
Discharge Plan Disposition Patient Disposition: HOME Condition: Good Discharge Details Reason For Visit: colon scope Attending Provider: Kimberli Macdonald Primary Care Provider: Annette Duncan Home Meds and New Rx's Prescriptions: Continued famotidine [Pepcid] 20 mg tablet 20 mg PO DAILY Qty: 90 RF: 4 mupirocin 2 % ointment 1 applic TP BID PRN (Reason: sore) RF: 0 Humulin 70/30 U-100 KwikPen 100 unit/mL (70-30) insulin pen 25 unit subcut QAM Qty: 15 RF: 4 metoprolol succinate 25 mg tablet extended release 24 hr 25 mg PO DAILY Qty: 30 RF: 5 metformin 1,000 mg tablet See Rx Instructions PO BID Qty: 270 RF: 12 Saccharomyces boulardii [Daily Probiotic (S. boulardii)] 250 mg capsule 250 mg PO BID RF: 0 Women's One Daily 1 EACH tablet 1 tab-cap PO DAILY RF: 0 (DME) blood-glucose meter 1 EACH misc 1 ea Miscellaneous ONCE Qty: 1 RF: 0 (DME) lancets 1 EACH misc 1 ea Miscellaneous DAILY Qty: 100 RF: 4 (DME) Blood Glucose Test Strip 1 ea Miscellaneous DAILY Qty: 100 RF: 4 (DME) Blood Glucose Test Strip See Rx Instructions .ROUTE .MEDSUPPLY Qty: 100 RF: 5 ibuprofen 600 mg tablet 600 mg PO Q6H PRN Qty: 180 RF: 12 loratadine 10 mg tablet 10 mg PO DAILY Qty: 90 RF: 11 fluticasone propionate 50 mcg/actuation spray,suspension 2 spray ROCK DAILY Qty: 19.8 RF: 5 lisinopril-hydrochlorothiazide 20-25 mg tablet 1 tab PO DAILY Qty: 90 RF: 11 lorazepam 0.5 mg tablet 0.5 mg PO DAILY MDD 1 PRN (Reason: agitation) Qty: 30 RF: 1 semaglutide 1 mg/dose (2 mg/1.5 mL) pen injector 1 mg SC QWEEK Qty: 15 RF: 5 venlafaxine [Effexor XR] 75 mg capsule,extended release 24hr 75 mg PO DAILY Qty: 90 RF: 12 estradiol 0.5 mg tablet 0.5 mg PO DAILY Qty: 90 RF: 3 ergocalciferol (vitamin D2) 1,250 mcg (50,000 unit) capsule 50,000 unit PO .3 times week Qty: 13 RF: 4 albuterol sulfate 90 mcg/actuation aerosol powdr breath activated 2 puff IH Q6H PRN (Reason: bronchospasm) Qty: 1 RF: 0 Discontinued polyethylene glycol 3350 17 gram/dose powder 238 g PO ONCE Qty: 238 RF: 0 bisacodyl [Dulcolax (bisacodyl)] 5 mg tablet,delayed release (DR/EC) 5 mg PO ONCE Qty: 4 RF: 0 Discharge Instructions Additional Instructions: DSU Colonoscopy Post- Op Instructions Instructions for Everyone who is given Anesthesia: For your safety, please do the following for the next twenty-four (24) hours: *Do Not operate a motor vehicle (car, truck, motorcycle, etc.) *Do Not drink alcoholic beverages or use any recreational drugs for the first 24 hours or while taking pain medications. The medications in your body may have a reaction that can be dangerous. *Do Not make any important decisions or sign any important papers. Findings: poor prep no large masses or tumors noted Follow up: need to repeat w/ 2-day prep 1. No lifting over 20 pounds or strenuous activity for the first 24 hours after your procedure. After 24 hours there are no restrictions on your activity but you may feel fatigued for a few days. 2. After you arrive home you may have a light meal and return to your normal diet as you can tolerate it without feeling sick to your stomach. 3. You may have a bloated, gaseous feeling in your belly (abdomen) after a colonoscopy. Passing gas and belching will help. Walking or lying down on your left side with your knees flexed may relieve the discomfort. Call the office at [phone] (Office) or [phone] (Hospital) right away if you notice any of the following: a.Vomiting of blood or ?coffee ground stools?. b.Rectal bleeding 1Tbsp, blood clots or continuous bleeding. c.Severe belly (abdominal) pain. d.A hard distended belly (abdomen) and an inability to pass gas. 4. Please don?t expect to have a normal BM (bowel movement) for 2-3 days after your procedure. 5. If there are questions regarding the findings of your procedure, please contact your doctor 6. If you are unable to contact your doctor with a problem, contact the hospital at [phone]. 7. Continue all your regular medications unless directed otherwise. I understand the above instructions and have no questions. Signature of Patient or Adult Escort Name of Responsible Adult Escort Signature of Nurse Date/Time Activity:: see above Diet:: see above Discharge Orders Discharge Orders: Discharge Order (Routine); Ordered 07/19/21 Ordered By: Kimberli Macdonald DS: Diagnosis Discharge Diagnosis (1) Weight loss, unintentional: Status: Acute (2) Acute diarrhea: Status: Acute (3) Adrenal mass: Status: Acute (4) Abnormal CT scan, colon: Status: Acute (5) LLQ abdominal pain: Status: Acute (6) Adrenal mass greater than 4 cm in diameter: Status: Acute (7) BRBPR (bright red blood per rectum): Status: Acute (8) Colitis: Status: Acute
--- NOTE | 2021-07-19 22:28 | W.COLOREPORT ---
Colonoscopy Report Date of procedure: 07/20/21 Pre-op diagnosis general: diarrhea/rectal bleeding/abnormal CT Surgeon: Kimberli Macdonald Anesthesia Type: General:No Airway Pathology: other Complications: None Prep: Miralax/Dulcolax Procedure Description: After informed consent was obtained the patient was taken to the procedure room and placed in a left decubitous position. Monitors were applied and a time out was done. The patients name, date of , procedure, allergies to medications and metal in their body was reviewed. The patient was then sedated. Once sedated and comfortable a rectal exam was done. External exam was normal. Internal exam revealed a normal sphincter tone and no palpable masses. Pt had no results from prep yesterday. THis was an unprepped exam Because of the problems that patient has been having we did elect to proceed with the procedure. This was an unprepped exam. I was able to reach the cecum. The cecum was full fluids I could not see anything in the cecum. There is no signs of bleeding. There are no large masses. The mucosa in the sigmoid was grossly normal. 2 L of saline was used to lavage the colon. Biopsy 30 cm taken. There are no rectal masses or hemorrhoids, Internal or external. These results do not explains the pain and bleeding and the changes on CT. She will be rescheduled for repeat exam in August and we will do a 2-day prep.
[2021-07-20 08:39] VITALS: BP 120/75; PULSE 88; RESP 16; TEMP 36.9; O2SAT 98
--- NOTE | 2021-07-20 08:47 | W.ANESPRE ---
General Info Date of Service Date Performed: 07/20/21 Height: 5 ft 4 in Weight: 84.8 kg Body Mass Index (BMI): 32.1 Surgical Procedure: Operation Date: 07/20/21 09:20 Proposed Procedures Side Surgeon p Colonoscopy w/Biopsy Kimberli Macdonald, Meds Allergies and Home Medications Allergies Allergy/AdvReac Type Severity Reaction Status Date / Time codeine AdvReac Intermediate Nausea Verified 07/20/21 08:26 Home Medication Medication Instructions Recorded Women's One Daily 1 tab-cap PO DAILY tab-cap 01/04/13 blood-glucose meter #1 ea 11/28/16 lancets #100 ea 11/28/16 albuterol sulfate 2 puff IH Q6H PRN #1 each 07/30/18 blood sugar diagnostic #100 strip 08/23/19 blood sugar diagnostic #100 ea 04/13/20 ibuprofen 600 mg tablet 600 mg PO Q6H PRN #180 tab-cap 05/30/20 loratadine 10 mg tablet 10 mg PO DAILY #90 tab-cap 05/30/20 fluticasone propionate 50 2 spray ROCK DAILY #19.8 gm 06/22/20 mcg/actuation nasal spray,suspension lisinopril 20 1 tab PO DAILY #90 tab-cap 08/09/20 mg-hydrochlorothiazide 25 mg tablet insulin NPH-regular 70-30 U-100 25 unit SUBCUT QAM #15 ml 10/16/20 insulin 100 unit/mL subcutaneous pen famotidine 20 mg tablet 20 mg PO DAILY #90 tab 11/14/20 lorazepam 0.5 mg tablet 0.5 mg PO DAILY PRN #30 tab MDD 1 11/16/20 semaglutide 1 mg/dose (2 mg/1.5 1 mg SC QWEEK #15 ml 12/05/20 mL) subcutaneous pen injector mupirocin 2 % topical ointment 1 applic TP BID PRN gm 03/08/21 estradiol 0.5 mg tablet 0.5 mg PO DAILY #90 tab-cap 04/10/21 venlafaxine 75 mg capsule,extended 75 mg PO DAILY #90 tab-cap 04/10/21 release 24 hr metformin 1,000 mg tablet See Rx Instructions PO BID #270 07/05/21 tab-cap metoprolol succinate 25 mg 25 mg PO DAILY #30 tab 07/05/21 tablet,extended release 24 hr Saccharomyces boulardii 250 mg 250 mg PO BID 07/09/21 capsule ergocalciferol (vitamin D2) 1,250 50,000 unit PO .3 times week #13 07/12/21 mcg (50,000 unit) capsule cap Current Visit Medications: Current Medications Generic Name Dose Route Start Last Admin Trade Name Freq PRN Reason Stop Dose Admin Hyoscyamine Sulfate 0.125 mg 07/19/21 22:29 Hyoscyamine 0.125 Mg Sl/Oral/Chew SL DIRECTED PRN Ringer's Solution 1,000 mls @ 80 mls/hr 07/20/21 06:00 IV 08/18/21 23:59 INFUSION [facility] IV Miscellaneous Supplies 1 each 07/20/21 06:00 Iv Access IV 08/18/21 23:59 DIRECTED YAMILETH Ondansetron HCl 4 mg 07/19/21 22:29 Ondansetron 4 Mg/2 Ml Vial IVP Q4H PRN PRN Nausea / Vomiting Sodium Chloride 0 ml 07/20/21 06:00 Normal Saline Flush 10 Ml Syr IV 08/18/21 23:59 PRN PRN Sodium Chloride 0 ml 07/20/21 06:00 Normal Saline 10 Ml Vial IJ 08/18/21 23:59 DIRECTED PRN Sterile Water 0 ml 07/20/21 06:00 Water,Injection,Sterile 10 Ml Vial IJ 08/18/21 23:59 DIRECTED PRN PFSH Active Problems Active Problems: Problem Status Onset Code Weight loss, unintentional R63.4 Acute diarrhea R19.7 Adrenal mass E27.[address] scan, colon R93.3 LLQ abdominal pain R10.32 Adrenal mass greater than 4 cm in diameter E27.8 BRBPR (bright red blood per rectum) K62.5 Colitis K52.9 Hypokalemia E87.6 Lesion of adrenal gland E27.9 Uncontrolled diabetes mellitus E11.65 Herpes zoster B02.9 Upper back pain on right side M54.9 Neuroma D36.10 Foot pain M79.673 Diverticula of colon K57.30 Encounter for annual physical exam 06/05/15 Z00.00 Shoulder pain M25.519 Sensorineural hearing loss, unilateral 04/14/17 H90.5 Essential hypertension 05/28/13 I10 Diabetes mellitus 11/22/16 E11.9 Depression 06/18/16 F32.9 Anxiety F41.9 Annual physical exam 06/05/15 Z00.00 Coccydynia M53.3 Medical History Active Problem List Uncontrolled diabetes mellitus (Acute) Herpes zoster (Acute) Upper back pain on right side (Acute) Neuroma (Acute) Foot pain (Acute) Diverticula of colon (Acute) Encounter for annual physical exam (Acute 06/05/15) Shoulder pain (Acute) Sensorineural hearing loss, unilateral (Chronic 04/14/17) Essential hypertension (Chronic 05/28/13) Diabetes mellitus (Chronic 11/22/16) Depression (Chronic 06/18/16) Anxiety (Chronic) Annual physical exam (Acute 06/05/15) Coccydynia (Chronic) Medical History Abdominal pain (07/03/05) Anemia (03/11/13) Anxiety Breast lump (10/09/10) Bronchitis Calculus of kidney (03/10/14) Carcinoid syndrome Carcinoid syndrome Chronic rhinitis Coccyx disorder (08/05/17) Coccyx pain Depression Diabetes Dysfunctional uterine bleeding (10/09/10) Dysmenorrhea (07/19/15) Encounter for routine gynecological examination (06/05/15) Endometriosis Endometriosis (07/19/15) Epicondylitis Fatigue Hypertension Kidney stones Plantar fascia syndrome 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) Right lower quadrant abdominal pain (07/03/05) Surgical History Surgical History Abdominal hysterectomy (09/05/16) [facility] Appendectomy 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 Bilateral salpingectomy with oophorectomy (09/05/16) [facility] Excision, Pilonidal Cyst History of appendectomy History of excision of mass Tobacco Smoking/Tobacco Use Status: Never Passive smoking exposure: Yes Second hand exposure: Yes Alcohol Alcohol Intake: current Alcohol intake frequency: a few times a month Substance Use Substance use: Occasionally Substance use type: other Details: THC Gummies - been a week Vital Signs and Lab Results Vital Signs Most Recent Vital Signs in EMR: Most Recent Vital Signs Temp Pulse Resp BP Pulse Ox 36.9 C 88 16 120/75 98 07/20/21 08:39 07/20/21 08:39 07/20/21 08:39 07/20/21 08:39 07/20/21 08:39 Lab Results Blood Type / Crossmatch: Patient ABO/Rh O Positive 06/22/21 13:45 06/22/21 Antibody Screen NEGATIVE 06/22/21 13:45 06/22/21 Complete Blood Count: White Blood Count 10.56 10^3/uL (4.4-10.8) 07/12/21 09:13 07/12/21 Red Blood Count 5.10 10^6/uL (3.93-5.22) 07/12/21 09:13 07/12/21 Hemoglobin 14.1 g/dL (11.2-15.7) 07/12/21 09:13 07/12/21 Hematocrit 42.1 % (36.0-46.0) 07/12/21 09:13 07/12/21 Platelet Count 363 10^3/uL (130-400) 07/12/21 09:13 07/12/21 Complete Metabolic Panel: Sodium Level 136 mmol/L (136-145) 06/22/21 13:45 06/22/21 Potassium Level 2.9 mmol/L (3.5-5.1) L 06/22/21 13:45 06/22/21 Chloride Level 97 mmol/L (98-107) L 06/22/21 13:45 06/22/21 Carbon Dioxide Level 31.4 mmol/L (21.0-32.0) 06/22/21 13:45 06/22/21 Blood Urea Nitrogen 17 mg/dL (7-18) 06/22/21 13:45 06/22/21 Creatinine 0.7 mg/dL (0.55-1.02) 06/22/21 13:45 06/22/21 Estimated GFR/1.73 m2 >= 60.00 (mL/min/1.73m2) 06/22/21 13:45 06/22/21 Magnesium Level 1.9 mg/dL (1.8-2.4) 06/22/21 13:45 06/22/21 Calcium Level 9.2 mg/dL (8.5-10.1) 06/22/21 13:45 06/22/21 Albumin 3.6 g/dL (3.4-5.0) 06/22/21 13:45 06/22/21 Glucose Level 244 mg/dL (74-106) H 06/22/21 13:45 06/22/21 Hemoglobin A1c 7.8 % (<5.7) H 07/12/21 09:13 07/12/21 C-Reactive Protein 0.99 mg/dL (0.0-0.3) H 07/12/21 09:13 07/12/21 Liver Function Panel: Alanine Aminotransferase (ALT/SGPT) 41 U/L (14-59) 06/22/21 13:45 06/22/21 Aspartate Amino Transf (AST/SGOT) 19 U/L (15-37) 06/22/21 13:45 06/22/21 Coagulation Panel: No Data to Display Cardiac Panel: No Data to Display Arterial Blood Gas: No Data to Display Venous Blood Gas: No Data to Display Pancreas Panel: No Data to Display Thyroid Panel: Thyroid Stimulating Hormone (TSH) 1.22 uIU/mL (0.36-3.74) 07/12/21 09:13 07/12/21 Infectious Disease: Coronavirus (COVID-19)(PCR) Negative (Negative) 07/18/21 09:10 07/18/21 Coronavirus 2019 Source Nasal/Nares 07/18/21 09:10 07/18/21 Blood Cultures: No Data to Display Toxicology Panel: No Data to Display Panel: No Data to Display Anesthesia Assessment and Plan Anesthesia History Personal History: No History of Anesthesia Complications Family History: No Family History of Anesthesia Complications Exercise Tolerance Exercise Tolerance: Metabolic Equivalents>4 Pertinent Negatives Pertinent Negatives: No Symptoms of GERD, No Major Cardiovascular Symptoms or Complaints and No Major Pulmonary Symptoms or Complaints Cardiac & Pulmonary Exam Cardiac Exam: Normal S1/S2 Heart Sounds Pulmonary Exam: Clear Bilateral Breath Sounds Implantable Cardiac Device Does patient have a Pacemaker or an ICD?: No Airway Exam Known Difficult Airway: No Mallampati Class: 2 Mouth Opening: Normal (> 3cm) Thyromental Distance: Greater than 3 cm Neck Range of Motion: Full ROM Neck Circumference: Normal Teeth Condition: Normal Dentition ASA Classification ASA Score: ASA 3 Emergency Case?: No NPO Status NPO Status: NPO Clears >2 hours, Solids >8 hours Status Status: History of Hysterectomy Anesthesia Plan Resuscitation Status: Full Code Anesthesia Technique: General Anesthesia Airway Planned: Natural Airway Monitors Used: Standard Monitors
[2021-07-20] MEDS: Lactated Ringers 1,000 ML 80 ML IV (08:50)
[2021-07-20 08:52] VITALS: BMI 32.1
--- NOTE | 2021-07-20 09:40 | BOWEL_PTH ---
PATIENT: Lynne Henderson LOC: [facility] U#:[id number] AGE/SX: 50/F ROOM: RE07/20/[address]: Kimberli Macdonald : 1970 BED: DIS: 07/20/2021 SPEC #: [id number] RECD: 07/20/21 12:58 STATUS: MAYLIN REQ #: [id number] RAY: 07/20/21 09:[address]: Kimberli Macdonald DEPT: Surgical Specimen RECD BY: Yuki Collins ENTERED: 07/20/21 13:00 SP TYPE: Bowel OTHR DR: Annette Duncan MD, DC Tissues: 1 - BIOPSY BOWEL Procedures: GROSS AND MICRO LEVEL 4 Comments: [id number]
[2021-07-20 09:52] VITALS: BP 139/79; PULSE 87; RESP 16; TEMP 36.2; O2SAT 95
--- NOTE | 2021-07-20 10:03 | W.ANESPOSTOP ---
Postoperative Evaluation Date, Time and Location Date Performed: 07/20/21 Time Performed: 10:04 Patient Location: Day Surgery Unit Vital Signs Most Recent Imported Vital Signs: Most Recent Vital Signs Temp Pulse Resp BP Pulse Ox 36.9 C 88 16 120/75 98 07/20/21 08:39 07/20/21 08:39 07/20/21 08:39 07/20/21 08:39 07/20/21 08:39 Pain Score Most Recent Pain Score: Most Recent Pain Score Pain Level 0 07/20/21 08:39 Assessment Mental Status: Awake (Alert & Oriented to Patient Baseline) Airway and Respiratory Function: Patent airway with normal (patient baseline) respiratory exam Cardiovascular Function: Hemodynamically Stable Hydration Status: Adequately Hydrated Nausea & Vomiting: No Nausea or Vomiting Pain: Pt. Denies Any Pain Peripheral Nerve Block: Patient did not receive a nerve block
[2021-07-20 10:25] VITALS: BP 131/85; PULSE 72; RESP 16; TEMP 36.5; O2SAT 98
== END 2021-07-20 11:15 | disposition home or self-care (01) ==
LOC: SUR 08:11
PROVIDERS: PCP Family Medicine; Visit Provider Surgery
PROC: 0DJD8ZZ Inspection of Lower Intestinal Tract, Via Natural or Artificial Opening Endoscopic (ICD-10-PCS; CPT 45378; principal; 2021-07-20 09:15)
DX: R63.4 Abnormal weight loss (principal); R19.7 Diarrhea, unspecified; K62.5 Hemorrhage of anus and rectum; E11.9 Type 2 diabetes mellitus without complications
CPT/HCPCS: 45380; 88305; J2405; J2704

== ENCOUNTER 2021-08-09 02:06 | Outpatient (CLI) | payer OTHER, SELFPAY ==
[2021-08-09] MEDS: Gadoterate meglumine 20 ML VIAL 10 ML IVP (08:42)
--- NOTE | 2021-08-09 08:50 | DI.MRI_ITS ---
Exam(s) MR ABDOMEN WO/W EXAM: MR ABDOMEN WO/W CLINICAL HISTORY: adrenal mass,e27.8 TECHNIQUE: Multiplanar multisequence MRA of the Abdomen was performed. CONTRAST MATERIAL: IV Contrast: 17 mL of Dotarem contrast administered. COMPARISON: CT CT ABDOMEN PELVIS W from 06/22/2021 FINDINGS: Liver: The liver measures 19 cm in length. Pancreas: Unremarkable. Gallbladder and Bile Ducts: Unremarkable. Adrenals: The right adrenal gland is unremarkable. There is a left adrenal mass which measures 3.9 c m transverse by 2.6 cm AP x 2.4 cm craniocaudad. There is loss of signal on the opposed phase images compared to the inphase images. There is mild enhancement following contrast administration. Kidneys: There is a 4.6 mm simple cyst in the left kidney. Spleen: Unremarkable. Aorta: Unremarkable. Soft Tissues: Unremarkable. Bone: Within normal limits for the patient's age. Lymph Nodes: Unremarkable. IMPRESSION: 3.9 x 2.6 x 2.4 cm left adrenal mass. It shows loss of signal on the opposed phase images on the MRI examination. There is mild enhancement noted. Findings are suggestive of a adrenal adenoma. A fol low-up examination in 1 year may be obtained to monitor stability. DATA REPOSITORY:
== END 2021-08-09 02:26 ==
PROVIDERS: PCP Family Medicine; Visit Provider Surgery
DX: E27.8 Other specified disorders of adrenal gland (principal)
CPT/HCPCS: 74183

== ENCOUNTER 2021-10-15 02:31 | Outpatient (CLI) | payer OTHER, SELFPAY ==
[2021-10-15 11:00] LABS: HCT 45.2 % (36.0-46.0); HGB 15.4 g/dL (11.2-15.7); MCH 27.3 pg (27.0-33.0); MCHC 34.1 % (32.0-36.0); MCV 80.1 fL (80-95); MPV 9.3 fL (8.0-11.0); Platelet Count 381 10^3/uL (130-400); RBC 5.64 10^6/uL (3.93-5.22); RDW 11.6 % (11.7-14.6); RDW-SD 33.6 fL; WBC 10.51 10^3/uL (4.4-10.8)
[2021-10-15 12:21] LABS: CREATININE 0.7 mg/dL (0.55-1.02)
[2021-10-18 10:50] LABS: Homovanillic Acid, VH 1.9 mg/g Cr (<8.0); Vanillylmandelic Acid, VH 3.7 mg/g Cr (<7.0)
== END 2021-10-15 02:32 | disposition home or self-care (01) ==
LOC: LBO 02:31
PROVIDERS: Surgery; PCP Family Medicine; Visit Provider Family Medicine
DX: E27.8 Other specified disorders of adrenal gland (principal); R93.3 Abnormal findings on diagnostic imaging of other parts of digestive tract; K62.5 Hemorrhage of anus and rectum
CPT/HCPCS: 36415; 85027; 82565; 83150; 84585

== ENCOUNTER 2022-02-01 03:17 | Outpatient (CLI) | payer OTHER, SELFPAY ==
--- OUTSIDE RECORDS SUMMARY | 2022-02-01 03:19 | XMS_ITS | Encounter Summary ---
:1970 Author Organization [place] [address] Care Team Providers Name Role Phone Annette Duncan MD Primary Care Provider Reason for Visit Reason Comments Follow-up Encounter Details Date Type Department Care Team Description 11/16/2021 Office Visit General Surgery at [facility], H/O melany luna [facility] adrenalectomy [facility] [address] [place] [facility] [id number] [place] [address] [phone] Social History Tobacco Use Types Packs/Day Years Used Date Never Smoker Smokeless Tobacco: Never Used Alcohol Habits Answer Date Recorded How often do you have a drink containing alcohol? Not asked How many drinks containing alcohol do you have on a typical Not asked day when you are drinking? How often do you have six or more drinks on one occasion? No t asked Comment: 2/month 09/05/2021 Sex Assigned at Date Recorded Female 08/13/2021 1:53 PM EST documented as of this encounter Last Filed Vital Signs Vital Sign Reading Time Taken Comments Blood Pressure 144/76 11/16/2021 11:29 AM EDT Pulse 91 11/16/2021 11:29 AM EDT Temperature - - Respiratory Rate 16 11/16/2021 11:29 AM EDT Oxygen Saturation 99% 11/16/2021 11:29 AM EDT Inhaled Oxygen Concentration - - Weight 83.1 kg (183 lb 3.2 oz) 11/16/2021 11:29 AM EDT Height - - Body Mass Index 31.43 11/01/2021 2:04 PM EDT documented in this encounter Progress Notes Nery Frederick MD - 11/16/2021 11:30 AM EDT ENDOCRINE SURGERY FOLLOW UP VISIT S/P left adrenalectomy (laparoscopic with robotic assist) on 11/01/2021. No issues at surgery. Since then recovering well. Pain improving. Good appetite. Moving bowels without issue. Exam: Incisions well healed, no erythema/drainage. Dermabond removed. Scab still on larger incision with some minor dimpling of skin. Plan: May gradually return to regular activity in the next 2-4 weeks - build up slowly. Scar massage to incisions. Pathology - benign adrenal adenoma - no follow up needed. RTC prn. documented in this encounter Plan of Treatment Not on filedocumented as of this encounter Visit Diagnoses Diagnosis H/O partial adrenalectomy Personal history of surgery to other org ans documented in this encounter Care Teams Hand Cutter Apprentice Relationship Specialty Start Date End Date Annette Duncan MD PCP - General Family Medicine 01/20/[address] [place] [address] documented as of this encounter
--- OUTSIDE RECORDS SUMMARY | 2022-02-01 03:19 | XMS_ITS | Clinical Summary ---
:1970 Author Organization [facility] [place] [address] Care Team Providers Name Role Phone Annette Duncan MD Primary Care Provider Allergies Active Allergy Reactions Severity Noted Date Comments Codeine Nausea And Vomiting 08/17/2021 Medications Medication Sig Dispensed Refills Start Date End Date Status metFORMIN Twice a day 0 07/01/2017 Active (GLUCOPHAGE) 1,000 mg Tablet HumuLIN 70/30 U-100 INJECT 25 UNITS 0 07/06/2021 Active KwikPen Insulin Pen SUBCUTANEOUSLY EVERY MORNING estradioL (ESTRACE) TAKE 1 TABLET BY 0 03/30/2021 Active 0.5 mg Tablet MOUTH DAILY famotidine (Pepcid) TAKE 1 TABLET BY 0 04/18/2021 Active 20 mg Tablet MOUTH DAILY ergocalciferoL, TAKE 1 CAPSULE BY 0 08/02/2021 Active vitamin D2, (vitamin MOUTH THREE TIMES D2) 50,000 unit PER WEEK Capsule [employer] FunnelTouch Ultra Test TEST ONCE DAILY 0 03/30/2021 Active Strip lisinopriL-hydrochlo Daily 0 06/05/2015 Active rothiazide (zestoretic) 20-25 mg Tablet loratadine TAKE 1 TABLET BY 0 05/14/2021 A ctive (Claritin) 10 mg MOUTH DAILY Tablet metoprolol succinate 0 08/14/2021 Active XL (Toprol-XL) 25 mg Tablet Sustained Release 24 hr venlafaxine XR Daily 0 07/10/2017 Acti ve (Effexor-XR) 75 mg Capsule, Sust. Release 24 hr Ozempic 1 mg/dose (4 once a week. 0 08/15/2021 Active mg/3 mL) Pen Injector fluticasone SHAKE LIQUID AND USE 0 06/11/2021 Active propionate (Flonase) 2 SPRAYS IN EACH 50 mcg/actuation NOSTRIL DAILY [place], Suspension HYDROmorphone Take 1 tablet by 7 tablet 0 11/02/2021 Active (Dilaudid) 2 mg mouth every 4 hours Tablet as needed for Pain. Additional Information Patient not taking. Reported on 11/16/2021 ibuprofen (Advil) 600 mg Take 1 tablet by mouth 30 tablet 12 Active Tablet every 6 hours as needed for Pain. acetaminophen (Tylenol) 325 Take 3 tablets by mouth 30 tablet 1 11/02/2021 Active mg Tablet every 6 hours as needed for Pain. Active Problems Problem Noted Date H/O partial adrenalectomy 11/01/2021 Adrenal mass greater than 4 cm in diameter with no his tory of malignant 08/24/2021 neoplasm Encounters Date Type Specialty Care Team Description 11/16/2021 Office Visit General Surgery [facility] H/O partial MD Daniel adrenalectomy 11/01/2021 - Hospital Encounter General Surgery [facility] 11/02/2021 MD Daniel from Last 3 Months Social History Tobacco Use Types Packs/Day Years [...] Date Recorded Female 08/13/2021 1:53 PM EST Last Filed Vital Signs Vital Sign Reading Time Taken Comments Blood Pressure 144/76 11/16/2021 11:29 AM EDT Pulse 91 11/16/2021 11:29 AM EDT Temperature 36.3 ??C (97.3 ??F) 11/02/2021 8:00 AM EDT Respiratory Rate 16 11/16/2021 11:29 AM EDT Oxygen Saturation 99% 11/16/2021 11:29 AM EDT Inhaled Oxygen Concentration - - Weight 83.1 kg (183 lb 3.2 oz) 11/16/2021 11:29 AM EDT Height 162.6 cm (5' 4.02) 11/01/2021 2:04 PM EDT Body Mass Index 31.43 11/01/2021 2:04 PM EDT Plan of Treatment Health Maintenance Due Date Last Done Comments Covid-19 Vaccine (#1) 1977 HIV screen 1990 Hepatitis C Screening 1990 Lipid Screening 1990 Tdap adult 11/26/1991 Tetanus vaccine 11/26/1991 HPV test 2002 PAP Smear 2002 Breast Cancer Share Decision Needed 2012 Diabetes Screening (HgbA1C or Glucose) 2012 Influenza (Flu) vaccine (1 - 04/04/2021 Influenza standard series) Colonoscopy 09/05/2026 09/05/2021, 09/05/2021 Procedures Procedure Name Priority Date/Time Associated Diagnosis Comme nts POCT GLUCOSE Routine 11/02/2021 8:20 AM Results f or this EDT procedure are i n the results section . POCT GLUCOSE Routine 11/02/2021 5:19 AM Results f or this EDT procedure are i n the results section . POCT GLUCOSE Routine 11/02/2021 12:54 AM Results for this EDT procedure are i n the results section . from Last 3 Months Results (ABNORMAL) POCT Glucose (11/02/2021 8:20 AM EDT)Only the most recent of3 results within the time period is included. P athologist Signature POC Glucose 200 (H) 65 - 199 [facility] Comment: Supplemental ranges: <140 mg/dL before meals <180 mg/dL all other times of the day Specimen Anatomical Collection Method Collection Time Receive d Time (Source) Location / / Volume Laterality Blood 11/02/2021 8:20 AM 8:20 EDT AM EDT [facility] MD POINT OF CARE TEST ORDERABLE S Performing Organization Address City/State/[place] [address] from Last 3 Months Insurance Payer Benefit Plan Subscriber ID Effective Dates Phone Address Type / Group [facility] PPO [id number] 2020-Kristian [phone] [address] [place] [address] Advance Directives Latest Code Status on File Code Status Date Activated Date Inactivated Comments Attempt Cardiopulmonary Resuscitation - 11/01/2021 10:13 PM 022 2:10 PM Inpatient Code Status decision made by: Patient Attempt Cardiopulmonary Resuscitation - 11/01/2021 1:56 PM 022 10:13 PM Inpatient Code Status decision made by: Patient Care Teams Bookkeeper Relationship Specialty Start Date End Date Annette Duncan MD PCP - General Family Medicine 01/20/[address] [place] [address]
--- OUTSIDE RECORDS SUMMARY | 2022-02-01 03:20 | XMS_ITS | Encounter Summary ---
:1970 Author Organization [place] [address] Care Team Providers Name Role Phone Annette Duncan MD Primary Care Provider Encounter Details Date Type Department Care Team Description 08/21/2021 Telephone Gastroenterology at [facility] [place] [address] Social History Tobacco Use Types Packs/Day Years Used Date Never Smoker Sex Assigned at Date Recorded Female 08/13/2021 1:53 PM EST documented as of this encounter Miscellaneous Notes Telephone Encounter - Danya, November - 08/21/2021 1:11 PM EST Lynne Henderson [id number] Diagnosis/Indication: 2 DAY PREP. colitis on CT scan at [facility] 1. Have you ever had a/an Colonoscopy before? Yes: Date 07/20/21 [facility] If yes, did you have any problems with the procedure? No What type of sedation was used: Other: UNKNOWN 2. Do you take any blood thinners or have you been diagnosed with a bleeding disorder that increasesyour risk of bleeding with procedures? No 3. Do you have a Pacemaker or Defibrillator device? No 4. Are you a diabetic? Yes: Controlled by diet or medication? Both 5. Do you have any Allergies to Eggs, Latex or Medications? Yes: SEE EDH 6. Do you take any Oral Iron Supplements (Including multi-vitamins)? Yes (Multivitamin) 7. Do you have a history of three or more abdominal surgeries? No 8. Have you had a problem with sedation or anesthesia? No 9. Do you use a c-pap machine or oxygen tank? C-Pap 10. Do you take prescription narcotic pain medications, including suboxone or methodone? No 11. Do you have a preference regarding the gender of your provider? No Preference 12. Is there any other information you would like to us to note for the provider and nursing team who will perform your case? No 13. Say to patient: You must have a responsible constitution party who will drive you to your procedure, stay on campus for the entire duration of your procedure, and drive you home from your procedure? *Please Verify the height and weight, and adjust if height and/or weight have changed* Estimated body mass index is 32.5 kg/m?? as calculated from the following: Height as of 08/17/21: 162.5 cm (5' 3.98). Weight as of 08/17/21: 85.8 kg (189 lb 3.2 oz). Age:50 y.o. documented in this encounter Plan of Treatment Not on filedocumented as of this encounter Visit Diagnoses Not on filedocumented in this encounter Care Teams Stone Chimney Mason Relationship Specialty Start Date End Date Annette Duncan MD PCP - General Family Medicine 01/20/[address] [place] [address] documented as of this encounter
--- OUTSIDE RECORDS SUMMARY | 2022-02-01 03:20 | XMS_ITS | Encounter Summary ---
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 Procedures PRO LAP, ADRENALECTOMY @ROBOTIC LAPAROSCOPIC ADRENALECTOMY (WRVU 20.73) MODIFIER ROBOT,DAVINCI XI Emergency IPI Referral ID Status Reason Start Date Expiration Date Visits Requ ested Visits Authorized [id number] 1 1 Encounter Details Date Type Department Care Team Description 11/01/2021 Anesthesia Event Main Operating Room Rio Calabrese MD [facility] [place] [address] [facility] [place] [address] [place] [address] Anesthesia Record Procedure Summary Procedure Name Responsible Anesthesia Start Anesthesia Stop Anesthesiologist Time Time @ROBOTIC LAPAROSCOPIC Rio Woodruff MD 11/01/21 1556 /08/25 ADRENALECTOMY (WRVU 20.73) (Left Flank) Events Date Time Event Comment 11/01/2021 1432 1556 AN Verify 1556 Start 1556 An Start Data 1607 An Induction 1609 An Intubation 1616 Anesthesia Ready 1631 Quick Note Surgeon requests no carlos a. 1640 Procedure Start 164 Quick Note Abd insufflation at 15mmHg 1748 Quick Note Switched BP cuff to left arm. 1849 Handoff Intra-procedure anesthesia care was transferred afte r review of the patient's history, current anesthetic/surgical status and procedural p kimberlee, anticipated issues and expected post-op erative course (including disposition.) Deon Pickard CRNA 1902 An Data Art Cuff on Leg morin siently/ back to arm for BP readings 2022 Extubation/LMA Out 2022 an stop data 2022 Recovery or ICU Handoff Patient care was transferred to the destination unit staff after review of the patient's medica l history, current anesthetic/surgi crystal status and plan, according to the Provider Handoff Checklist. 2035 Stop Name Total Midazolam 4 mg fentaNYL 100 mcg IV Lidocaine 100 mg Propofol 250 mg Rocuronium 160 mg Ondansetron 4 mg ceFAZolin (Ancef) 2 g in dextrose 5% 100 mL infusion 2 g Ketamine 10 mg/mL 30 mg Dexmedetomidine 50 mcg Dexmedetomidine INF 189.25 mcg Propofol INF 2,453.59 mg Labetalol 20 mg Insulin Regular Human 14 Units Insulin Regular INF 11.72 Units Sugammadex 200 mg ketorolac (Toradol) (30 mg/mL) injection 15 mg HYDROmorphone 2 mg/mL 1 mg lactated ringers infusion 600 mL Sodium Chloride 0.9% 1,000 mL Agents Name O2 Air N2O Sevoflurane (et) Blood No blood administrations on file. Lines, Drains, and Airways Type Details Placement Removal NG/OG Tube 11/01/21; 1612; [place] sump; 11/01/21 1612 by Willi young, 18 Fr; mouth; Secured; GISELA Bello CRNA Incision 11/01/21; 1642; abdomen; 11/01/21 1642 by Nick laparoscopic punctures CONNIE Hawkins (specify); 5 Trocar Sites PIV 11/01/21; 1425; metacarpal 11/01/21 1425 by 0408/25 1024 by Guevara vein (top of hand), right; Africa Hassan RN Debra L RN [id number] catheter system; 20 gauge, 1 in length; Donavan Hassan RN; distraction, intradermal injection, tolerated well, appears comfortable, age-appropriate response; no longer indicated, catheter/device intact, removed per policy/procedure, site care per policy/procedure; 11/02/21; 1024 ETT Mask Ventilation: Easy (1); 11/01/21 1609 by Willi young, 11/01/212022 by ETT Type: Cuffed, Oral; ETT AURORA Bello Ange A, Size: 7.5 mm; Mac Blade: 4; AURORA Notes: Asleep, Pre-O2, Stylette; Attempts: 1; Laryngoscopy Grade: 1; ETT Placement Verified By: Auscultation, Capnometry; Secured at Teeth: 21 cm; Inserted by: Kami SIMON PIV 11/01/21; 1613; dorsal arch 11/01/21 1613 by Willi young, 11/02/21 1023 by Guevara, vein (top of hand), left; AURORA Bello RN [id number] catheter system; 18 gauge; Sammy SMITH; no longer indicated, removed per policy/procedure, site care per policy/procedure, catheter/device intact; 11/02/21; 1023 documented in this encounter Social History Tobacco Use Types Packs/Day Years [...] PM EST documented as of this encounter OR Notes Anesthesia Postprocedure Evaluation - Rio Woodruff MD - 11/02/2021 2:19 AM EDT Department of Anesthesiology Post-procedure Note Patient: Lynne Henderson Procedure Summary Date: 11/01/21 Room / Location: [facility] OR [facility] MAIN OR Anesthesia Start: 1555 Anesthesia Stop: 2035 Procedures: @ROBOTIC LAPAROSCOPIC ADRENALECTOMY (WRVU 20.73) (Left Flank) MODIFIER ROBINA CHRISTY (N/A ) Diagnosis: (LEFT ADRENAL NEOPLASM) Surgeons: Nery Frederick MD Responsible Provider: Rio Woodruff MD Anesthesia Type: general ASA Status: 2 All Anesthesia Providers: Anesthesiologist: Rio Woodruff MD; Jose Alberto Christianson DO AUTOMOTIVE REPAIR TECHNICIAN: Eugenia Mcclure CRNA; Ange Pickard CRNA Vitals Value Taken Time BP 100/59 11/02/21 0100 Temp 36.5 ??C (97.7 ??F) 11/01/21 2245 Pulse 87 11/01/21 2246 Resp 16 11/02/21 0100 SpO2 94 % 11/02/21 0218 Pain Level 4 11/01/21 2300 Vitals shown include unvalidated device data. Patient Location: PACU/[facility] Level of Consciousness: Awake and Alert Pain Management: Satisfactory Analgesia PONV: None Cardiovascular Status: At Baseline and Hemodynamically Stable Respiratory Status: At Baseline and Room Air Postoperative Fluid Status: Intravascular EUvolemia Possible Anesthetic Complications: NONE apparent at time of evaluation Final Primary Anesthesia Type: General (The anesthetic type performed was the same as planned.) Comments: Rio Woodruff MD Anesthesia Preprocedure Evaluation - Jose Alberto Christianson DO - 11/01/2021 11:14 AM EDT Pre-Anesthesia Evaluation for: Lynne Henderson a 50 y.o. female. Procedure(s): @ROBOTIC LAPAROSCOPIC ADRENALECTOMY (WRVU 20.73) MODIFIER ROBINA CHRISTY Patient Active Problem List Diagnosis Date Noted ??? 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 No pertinent past medical history. Past Surgical History: Procedure Laterality Date ??? PRO COLONOSCOPY, DIAGNOSTIC N/A 09/05/2021 COLONOSCOPY, DIAGNOSTIC performed by Kristina Alcocer MD at [facility] ENDOSCOPY Social History Tobacco Use ??? Smoking status: Never Smoker ??? Smokeless tobacco: Never Used Substance Use Topics ??? Alcohol use: Not on file Comment: 2/month Social History Substance and Sexual Activity Drug Use Yes ??? Frequency: 1.0 times per week ??? Types: Marijuana Comment: edibles and inhalant Allergies Allergen Reactions ??? Codeine Nausea And Vomiting Medications: MAR and/or home medications have been reviewed. Physical Exam: Preprocedure Vitals Current as of 11/01/21 1114 No BP, pulse, respiration, SpO2, or temperature recorded. Height: Weight: BMI: IBW: Airway Assessment: Mallampati: I TM distance: >3 FB Neck ROM: full Cardiovascular Assessment: Rhythm: regular Rate: normal Pulmonary Assessment: breath sounds clear to auscultation Dental Assessment: Misc Assessment: Patient is wearing No contact(s). IV access: Peripheral line Last Filed Perioperative Cognitive Screening None Anesthesia Plan: ASA 2 general, with a(n) intravenous induction 50 yr old female for robotic assisted laparoscopic adrenalectomy. PMH: htn, DM, anxiety, depression and colitis. Patient has a history of carcinoid appendix. It doesn't appear that this lesion is a pheochromocytoma. Normal metanephrines/normetanephrines. Free cortisol is normal as well. Geneeral with ETT, 2 IVs and possible arterial line. No arterial line needed. Most likely a benign adenoma. Gen'l ETT NPO No changes in her health. Vaccinated for covid Region - Other Informed Consent: Anesthetic plan and risks discussed with patient. Plan discussed with AUTOMOTIVE REPAIR TECHNICIAN and attending. Anesthesia Screening documented in this encounter Plan of Treatment Not on filedocumented as of this encounter Visit Diagnoses Not on filedocumented in this encounter Administered Medications Inactive Administered Medications - up to 3 most recent administrations Medication Order MAR Action Action Date Dose Rate Site ceFAZolin (Ancef) 2 g in dextrose 5% Given 11/01/2021 4:15 PM ED T 2 g 100 mL infusion 2 g, Intravenous, SUPPLY SPECIALIST TO O.R., 1 dose, On Enriqueta 11/01/21 at 1415, Administer over 30 Minutes, Indication for (Active or Suspected): Prophylaxis dexmedetomidine (Precedex) (4 mcg/mL) bolus Given 11/01/2021 4:07 PM EDT 50 mcg injection (Anesthsia) Intravenous, PRN, Starting on Enriqueta 11/01/21 at 1607, Until Enriqueta 11/01/21 at 2022, Anesthesia Intra-op, Routine dexmedetomidine (Precedex) Rate/Dose 11/01/2021 6:29 0.4 mcg/kg/hr 8 .57 mL/hr (4 mcg/mL) in sodium Change PM EDT chloride 0.9% 50 mL infusion Intravenous, CONTINUOUS PRN, Starting on Enriqueta 11/01/21 at 1607, Until Enriqueta 11/01/21 at 2022, Anesthesia Intra-op Rate/Dose Change 11/01/2021 5:53 PM EDT 0.5 mcg/kg/hr 10.713 mL/hr Rate/Dose Change 11/01/2021 5:29 PM EDT 0.7 mcg/kg/hr 14.997 mL/hr fentaNYL (pf) (50 mcg/mL) multi-dose Given 11/01/2021 5:35 PM ED T 50 mcg injection Intravenous, PRN, Starting on Enriqueta 11/01/21 at 1710, Until Enriqueta 11/01/21 at 2022, Anesthesia Intra-op, Routine Given 11/01/2021 5:10 PM EDT 50 mcg HYDROmorphone (Dilaudid) (2 mg/mL) multi-dose Given 8:29 PM EDT 0.4 mg injection solution Intravenous, PRN, Starting on Enriqueta 11/01/21 at 1955, Until Enriqueta 11/01/21 at 2022, Anesthesia Intra-op, Routine Given 11/01/2021 8:05 PM EDT 0.2 mg Given 11/01/2021 7:55 PM EDT 0.4 mg insulin regular (HumuLIN R,NovoLIN R) (100 Given 11/01/2021 7:37 PM EDT 4 Units unit/mL) injection vial Intravenous, PRN, Starting on Enriqueta 11/01/21 at 1839, Until Enriqueta 11/01/21 at 2022, Anesthesia Intra-op, Routine Given 11/01/2021 6:39 PM EDT 10 Units insulin regular (Myxredlin) (1 Rate/Dose Change 11/01/2021 7:37 7 U nits/hr 7 mL/hr unit/mL) in sodium chloride PM EDT 0.9% 100 mL infusion Intravenous, CONTINUOUS PRN, Starting on Enriqueta 11/01/21 at 1839, Until Enriqueta 11/01/21 at 2022, Anesthesia Intra-op, Routine New Bag 11/01/2021 6:39 PM EDT 5 Units/hr 5 mL/hr ketamine (Ketalar) (10 mg/mL) IV bolus Given 11/01/2021 4:39 PM EDT 30 mg injection (Anesthesia) Intravenous, PRN, Starting on Enriqueta 11/01/21 at 1639, Until Enriqueta 11/01/21 at 2022, Anesthesia Intra-op ketorolac (Toradol) (30 mg/mL) injection Given 11/01/2021 8:04 PM EDT 15 mg Intravenous, PRN, Starting on Enriqueta 11/01/21 at 2004, Until Enriqueta 11/01/21 at 2022, Anesthesia Intra-op, Routine labetaloL (Normodyne) (5 mg/mL) multi-dose Given 11/01/2021 5:29 PM EDT 5 mg injection Intravenous, PRN, Starting on Enriqueta 11/01/21 at 1704, Until Enriqueta 11/01/21 at 2022, Anesthesia Intra-op, Routine Given 11/01/2021 5:18 PM EDT 5 mg Given 11/01/2021 5:04 PM EDT 5 mg lactated ringers infusion Restarted 11/01/2021 3:56 PM EDT 1,000 mL, at 100 mL/hr, Intravenous, CONTINUOUS, Starting on Enriqueta 11/01/21 at 1415, Until Enriqueta 11/01/21 at 2314, Day of Surgery (Day of Procedure) New Bag 11/01/2021 2:28 PM EDT 1,000 mLs 100 mL/hr lidocaine (pf) (Xylocaine) (20 mg/mL) 2% Given 11/01/2021 4:07 P M EDT 100 mg injection syringe Intravenous, PRN, Starting on Enriqueta 11/01/21 at 1607, Until Enriqueta 11/01/21 at 2022, Anesthesia Intra-op, Routine midazolam (pf) (Versed) (1 mg/mL) multi-dose Given 11/01/2021 3: 59 PM EDT 2 mg injection Intravenous, PRN, Starting on Enriqueta 11/01/21 at 1552, Until Enriqueta 11/01/21 at 2022, Anesthesia Intra-op, Routine Given 11/01/2021 3:52 PM EDT 2 mg ondansetron (pf) (Zofran) (2 mg/mL) inje ction Given 11/01/2021 7:44 PM EDT 4 mg Intravenous, PRN, Starting on Enriqueta 11/01/21 at 1944, Until Enriqueta 11/01/21 at 2022, Anesthesia Intra-op, Routine propofoL (Diprivan) (10 Rate/Dose 11/01/2021 8:02 50 mcg/kg/min 25.7 1 mg/mL) infusion Change PM EDT mL/hr Intravenous, CONTINUOUS PRN, Starting on Enriqueta 11/01/21 at 1607, Until Enriqueta 11/01/21 at 2022, Anesthesia Intra-op, Routine Rate/Dose Change 11/01/2021 7:43 PM EDT 100 mcg/kg/min 51.42 mL/hr Rate/Dose Change 11/01/2021 6:45 PM EDT 75 mcg/kg/min 38.565 mL/hr propofoL (Diprivan) 10 mg/mL bolus injection Given 7:47 PM EDT 50 mg (Anesthesia) Intravenous, PRN, Starting on Enriqueta 11/01/21 at 1607, Until Enriqueta 11/01/21 at 2022, Anesthesia Intra-op Given 11/01/2021 4:07 PM EDT 200 mg rocuronium (Zemuron) (10 mg/mL) multi-dose Given 11/01/2021 7:01 PM EDT 20 mg injection Intravenous, PRN, Starting on Enriqueta 11/01/21 at 1607, Until Enriqueta 11/01/21 at 2022, Anesthesia Intra-op, Routine Given 11/01/2021 6:30 PM EDT 20 mg Given 11/01/2021 6:10 PM EDT 20 mg sodium chloride 0.9% infusion New Bag 11/01/2021 7:47 PM EDT Intravenous, CONTINUOUS PRN, Starting on Enriqueta 11/01/21 at 1613, Until Enriqueta 11/01/21 at 2022, Anesthesia Intra-op New Bag 11/01/2021 4:13 PM EDT sugammadex (Bridion) 100 mg/mL injection Given 11/01/2021 7:56 PM EDT 200 mg Intravenous, PRN, Starting on Enriqueta 11/01/21 at 1956, Until Enriqueta 11/01/21 at 2022, Anesthesia Intra-op, Routine documented in this encounter Care Teams Fruit Grader Relationship Specialty Start Date End Date Annette Duncan MD PCP - General Family Medicine 01/20/[address] [place] [address] documented as of this encounter
--- OUTSIDE RECORDS SUMMARY | 2022-02-01 03:20 | XMS_ITS | Encounter Summary ---
:1970 Author Organization [facility] [place] [address] Care Team Providers Name Role Phone Annette Duncan MD Primary Care Provider Reason for Visit Auth/Cert Specialty Diagnoses / Procedures Referred By Contact Refer red To Contact Diagnoses Abnormal findings on diagnostic imaging of other parts of digestive tract Colitis [address] colitis on CT scan at OSH Procedures PRO COLONOSCOPY, DIAGNOSTIC PRO COLONOSCOPY, REMV LESN, SNARE PRO COLONOSCOPY, BIOPSY COLONOSCOPY, DIAGNOSTIC Referral ID Status Reason Start Date Expiration Date Visits Requ ested Visits Authorized [id number] 1 1 Encounter Details Date Type Department Care Team Description 09/05/2021 Hospital Encounter Gastroenterology at [facility] Warren Alcocer, [facility] [place] [address] [facility] [phone] [place] [address] Social History Tobacco Use Types Packs/Day Years [...] Sign Reading Time Taken Comments Blood Pressure 113/67 09/05/2021 8:40 AM EST Pulse 100 09/05/2021 8:45 AM EST Temperature 36.1 ??C (96.9 ??F) 09/05/2021 7:13 AM EST Respiratory Rate 17 09/05/2021 8:45 AM EST Oxygen Saturation 98% 09/05/2021 8:50 AM EST Inhaled Oxygen Concentration - - Weight 85.7 kg (189 lb) 09/05/2021 7:13 AM EST Height 162.6 cm (5' 4) 09/05/2021 7:13 AM EST Body Mass Index 32.44 09/05/2021 7:13 AM EST documented in this encounter Discharge Instructions Discharge Wong Acevedo RN - 09/05/2021 8:51 AM EST Colonoscopy: What to Expect at Home Your Recovery Your doctor will talk to you about when you will need your next colonoscopy. Your doctor can help you decide how often you need to be checked. This will depend on the results of your test and your riskfor colorectal cancer. After the test, you may be bloated or have gas pains. You may need to pass gas. If a biopsy was doneor a polyp was removed, you may have streaks of blood in your stool (feces) for a few days. Problemssuch as heavy rectal bleeding may not occur until several weeks after the test. This isn't common. But it can happen after polyps are removed. This care sheet gives you a general idea about how long it will take for you to recover. But each person recovers at a different pace. Follow the steps below to get better as quickly as possible. How can you care for yourself at home? Activity Rest when you feel tired. ?? You can do your normal activities when it feels okay to do so. Diet ?? Follow your doctor's directions for eating. ?? Unless your doctor has told you not to, drink plenty of fluids. This helps to replace the fluidsthat were lost during the colon prep. ?? Do not drink alcohol. Medicines ?? Your doctor will tell you if and when you can restart your medicines. He or she will also give you instructions about taking any new medicines. ?? If you take blood thinners, such as warfarin (Coumadin), clopidogrel (Plavix), or aspirin, be sure to talk to your doctor. He or she will tell you if and when to start taking those medicines again.Make sure that you understand exactly what your doctor wants you to do. ?? If polyps were removed or a biopsy was done during the test, your doctor may tell you not to take aspirin or other anti-inflammatory medicines for a few days. These include ibuprofen (Advil, Motrin) and naproxen (Aleve). Other instructions ?? For your safety, do not drive or operate machinery until the medicine wears off and you can think clearly. Your doctor may tell you not to drive or operate machinery until the day after your test. ?? Do not sign legal documents or make major decisions until the medicine wears off and you can think clearly. The anesthesia can make it hard for you to fully understand what you are agreeing to. Additional Information for Sedation Patients For patients who received sedation: ?? You may have received medications before and/or during your procedure which effects your judgement and reaction time. ?? Do not drive, operate machinery, drink alcoholic beverages or make important decisions for 24 hours. ?? Be careful on stairs as you may be unsteady on your feet. ?? You may eat a regular diet as tolerated. ?? Do not smoke if you are alone. ?? IV site: Slight redness or tenderness is normal, you can use a warm compress if you would like. If tenderness and/or redness increase or if foul drainage occurs, please contact your Doctor. Please call [phone] before 8pm Mon-Fri with problems, questions or concerns. If you call after 8pm or on weekends, call the Hospital at [phone] and ask to speak to the [employer] nutrition services associate and the gear hobber operator will contact that person for you. When should you call for help? Call [phone] anytime you think you may need emergency care. For example, call if: ?? You passed out (lost consciousness). ?? You pass maroon or bloody stools. ?? You have trouble breathing. Call your doctor now or seek immediate medical care if: ?? You have pain that does not get better after you take pain medicine. ?? You are sick to your stomach or cannot drink fluids. ?? You have new or worse belly pain. ?? You have blood in your stools. ?? You have a fever. ?? You cannot pass stools or gas. Watch closely for changes in your health, and be sure to contact your doctor if you have any problems. Where can you learn more? [facility] View your After Visit Summary and more online at [email or web address] If you would like to provide feedback about your hospital experience, please call the Office of Patient and Family Relations at . If you have received this After Visit Summary in error, please immediately return it in person to the department, or notify the [facility] Privacy Office by calling toll free at between the hours of 8AM and 5PM to arrange for our retrieval of the documents at no cost to you. Content Version: 12.2 ?? [id number] [employer]. Care instructions adapted under license by [facility]. If you have questions about a medical condition or this instruction, always ask your healthcare professional. [employer] disclaims any warranty or liability for your use of this information. documented in this encounter Medications at Time of Discharge Medication Sig Dispensed Refills Start Date End Date HYDROmorphone Take 1 tablet by mouth 7 tablet 0 11/02/2021 (Dilaudid) 2 mg Tablet every 4 hours as needed for Pain. ibuprofen (Advil) 600 Take 1 tablet by mouth 30 tablet 12 mg Tablet every 6 hours as needed for Pain. acetaminophen Take 3 tablets by mouth 30 tablet 1 2 (Tylenol) 325 mg every 6 hours as needed Tablet for Pain. metFORMIN (GLUCOPHAGE) Twice a day 0 07/01/2017 1,000 mg Tablet HumuLIN 70/30 U-100 INJECT 25 UNITS 0 07/06/2021 KwikPen Insulin Pen SUBCUTANEOUSLY EVERY MORNING estradioL (ESTRACE) TAKE 1 TABLET BY MOUTH 0 03/05 0.5 mg Tablet DAILY famotidine (Pepcid) 20 TAKE 1 TABLET BY MOUTH 0 0 04/18/2021 mg Tablet DAILY ergocalciferoL, TAKE 1 CAPSULE BY MOUTH 0 021 vitamin D2, (vitamin THREE TIMES PER WEEK D2) 50,000 unit Capsule [employer] Ultra Test TEST ONCE DAILY 0 03/30/2021 Strip lisinopriL-hydrochloro Daily 0 06/05/2015 thiazide (zestoretic) 20-25 mg Tablet loratadine (Claritin) TAKE 1 TABLET BY MOUTH 0 10 mg Tablet DAILY metoprolol succinate 0 08/14/2021 XL (Toprol-XL) 25 mg Tablet Sustained Release 24 hr venlafaxine XR Daily 0 07/10/2017 (Effexor-XR) 75 mg Capsule, Sust. Release 24 hr Ozempic 1 mg/dose (4 once a week. 0 08/15/2021 mg/3 mL) Pen Injector fluticasone propionate SHAKE LIQUID AND USE 2 0 1 08/11/2020 (Flonase) 50 SPRAYS IN EACH NOSTRIL mcg/actuation [place], DAILY Suspension acetaminophen Take 3 tablets by mouth 30 tablet 1 2 11/02/2021 (Tylenol) 325 mg every 6 hours as needed Tablet for Pain. ibuprofen (Advil) 600 Take 1 tablet by mouth 30 tablet 12 11/02/2021 mg Tablet every 6 hours as needed for Pain. oxyCODONE (Roxicodone) Take 1 tablet by mouth 7 tablet 0 0 11/01/2021 11/02/2021 5 mg Tablet every 4 hours as needed for Pain. escitalopram (LEXAPRO) 20MG = 1 Tablet(s), PO, 0 09/02/2006 11/01/2021 20 mg tablet Once daily documented as of this encounter H&P Notes Charito Augustin APRN - 09/05/2021 7:31 AM EST Patient Name: Lynne Henderson Patient Age: 50 y.o. Birthdate: 1970 Admit date: 09/05/2021 Attending Physician: Warren Alcocer MD Gastroenterology and Hepatology Pre-Procedure History and Physical Exam Procedure: Colonoscopy: Indication: 50 yo presents for colonoscopy Patient Active Problem List Diagnosis Code ??? 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 Codeine Nausea And Vomiting Family Hx: denies significant known family hx EXAM: HEENT: Airway examined, oropharynx clear Mallampati Score: Mallampati: II (soft palate, uvula, fauces visible) LUNGS: Clear to auscultation HEART: Regular rate and rhythm, normal S1, S2 ABDOMEN: Normal bowel sounds, soft, non tender, non distended, A/P Proceed with the planned endoscopic procedure. ASA 2 - Patient with mild systemic disease with no functional limitations Sedation Plan: moderate (conscious sedation) Risks and benefits of the procedure explained to the patient. Consent signed. Charito Augustin APRN Section of Gastroenterology [place] [address] documented in this encounter Plan of Treatment Not on filedocumented as of this encounter Procedures Procedure Name Priority Date/Time Associated Comments Diagnosis COLONOSCOPY, 09/05/2021 7:56 AM Abnormal finding on DIAGNOSTIC EST GI tract imaging COLONOSCOPY Routine 09/05/2021 7:38 AM Results f or this EST procedure are i n the results section. POCT GLUCOSE Routine 09/05/2021 7:23 AM Results f or this EST procedure are i n the results section. documented in this encounter Results COLONOSCOPY (09/05/2021 7:38 AM EST) [facility] Method Time Signature COLONOSCOPY [facility] PROVATION Endoscopy Procedure Date: 09/05/2021 7:38 AM ? Patient Name: Lynne Henderson ? Date of : 1970 ? Age: 50 ? Order #: [id number] ? Instrument Name: [id number] ? Procedure: ? Colonoscopy Indications: ? Screening for colorectal malignant ? neoplasm Providers: ? Warren Alcocer MD, Nadira Gregory RN, ? Wong Fall MD: ?Annette Duncan MD Medicines: ? Midazolam 4 mg IV, Fentanyl 250 ? micrograms IV Complications: ? No immediate complications. Procedure: ? Pre-Anesthesia Assessment: ? - Prior to the procedure, a H istory ? and Physical was performed, a nd ? patient medications and aller gies ? were reviewed. The patient's ? tolerance of previous anesthe rowena was ? also reviewed. The risks and benefits ? of the procedure and the coty tion ? options and risks were discus sed with ? the patient. All questions we re ? answered, and informed consen t was ? obtained. Prior Anticoagulant s: The ? patient has taken no previous ? anticoagulant or antiplatelet agents. ? ASA Grade Assessment: II - A patient ? with mild systemic disease. A fter ? reviewing the risks and benef its, the ? patient was deemed in satisfa ctory ? condition to undergo the proc edure. ? The procedure, indications, b enefits, ? risks and alternatives were e xplained ? to the patient. Specifically ? discussed were potential ? complications including, but not ? limited to, bleeding, perfora tion, ? infection, missing a cancer, and ? adverse medication reactions. The ? patient was placed in the lef t ? lateral decubitus position, a nd a ? digital rectal exam was perfo rmed. ? The Colonoscope was inserted in the ? anus and under direct visuali zation, ? advanced to the cecum, identi fied by ? appendiceal orifice and ileoc ecal ? valve. Careful inspection was made as ? the colonoscope was withdrawn . The ? colonoscopy was performed wit vera ? difficulty. The patient karlo ated the ? procedure well. The quality o f the ? bowel preparation was evaluat ed using ? the BBPS ([place] Bowel Prepar ation ? Scale) with scores of: Right Colon = ? 2 (minor amount of residual s taining, ? small fragments of stool and/ or ? opaque liquid, but mucosa see laura eubanks), ? Transverse Colon = 2 (minor a mount of ? residual staining, small frag ments of ? stool and/or opaque liquid, b ut ? mucosa seen well) and Left Co farrah = 2 ? (minor amount of residual sta ining, ? small fragments of stool and/ or ? opaque liquid, but mucosa see laura eubanks). ? The total BBPS score equals 6 . The ? quality of the bowel preparat ion was ? fair. ? Findings: ? The perianal and digital rectal examinations were ? normal. ? The terminal ileum appeared normal. ? The rectum, sigmoid colon, descending colon, ? transverse colon, ascending colon and cecum appeared ? normal. ? The retroflexed view of the distal rectum and anal ? verge was normal and showed no anal or rectal ? abnormalities. ? Moderate Sedation: ? I was present during the intraservice time as ? documented by the sedation RN. Impression: ?- Preparation of the colon was gerry r. ? - The examined portion of the ileum ? was normal. ? - The rectum, sigmoid colon, ? descending colon, transverse colon, ? ascending colon and cecum are normal. ? - The distal rectum and anal verge ? are normal on retroflexion vi ew. ? - No specimens collected. Recommendation: ?- Repeat colonoscopy in 5 years for ? screening purposes due to gerry r prep. ? - Return to referring physici an. ? Procedure Code(s): ?? --- Professional --- ? G0121, Colorectal cancer scre ening; ? colonoscopy on individual not meeting ? criteria for high risk CPT copyright 2019 [employer]. All rights reserved. The codes documented in this report are preliminary and upon car salter review may be revised to meet current compliance requirements. Attending Participation: ? I personally performed the entire procedure. ? Warren Alcocer MD Warren Alcocer MD 09/05/2021 9:05:00 AM This report has been signed electronically. Number of Addenda: 0 Note Initiated On: 09/05/2021 7:38 AM Specimen (Source) Anatomical Collection Method Collection Time Re ceived Time Location / / Volume Laterality 09/05/2021 7:38 AM EST Annette Duncan MD GENERAL SURGICAL ORDERABLES Performing Organization Address City/State/ZIP Code Phon e Number [place]OV[place] (ABNORMAL) POCT Glucose (09/05/2021 7:23 AM EST) athologist Signature POC Glucose 205 (H) 65 - 199 [place] mg/dL [facility] Comment: Supplemental ranges: <140 mg/dL before meals <180 mg/dL all other times of the day Specimen Anatomical Collection Method Collection Time Receive d Time (Source) Location / / Volume Laterality Blood 09/05/2021 7:23 AM 9:00 EST AM EST Warren Alcocer MD POINT OF CARE TEST ORDERABLE S Performing Organization Address City/State/ZIP Code Phon e Number [place] [id number] documented in this encounter Visit Diagnoses Not on filedocumented in this encounter Active and Recently Administered Medications Times are shown in EST. PRN Medication Order 09/03/2021 09/04/2021 09/05/2021 fentaNYL (pf) (50 mcg/mL) multi-dose injection (CANCELED) 0810 (Given - Provider: Nadira Gregory RN)0813 (Given - Provider: Nadira Gregory RN)0816 (Given - Provider: Nadira Gregory RN)0820 (Given - Provider: Nadira Gregory RN)0828 (Given - Provider: Nadira Gregory RN) ONCE PRN, Starting on Fri09/05/21 at 0810 , Until Fri09/05/21 at 1129, Intra- Operative (Intra-Procedure), Routine midazolam (pf) (Versed) (1 mg/mL) multi-dose injection (CANCELED ) 0810 (Given - Provider: Nadira Gregory RN)0813 (Given - Provider: Nadira Gregory RN)0816 (Given - Provider: Nadira Gregory RN)08 (Given - Provider: Nadira Gregory RN) ONCE PRN, Starting on Fri09/05/21 at 0810 , Until Fri09/05/21 at 1129, Intra- Operative (Intra-Procedure), Routine documented in this encounter Care Teams Scientific Process Operator Relationship Specialty Start Date End Date Annette Duncan MD PCP - General Family Medicine 01/20/[address] [place] [address] documented as of this encounter
--- OUTSIDE RECORDS SUMMARY | 2022-02-01 03:20 | XMS_ITS | Encounter Summary ---
:1970 Author Organization [facility] [place] [address] Care Team Providers Name Role Phone Annette [...] Expiration Date Visits Requ ested Visits Authorized [id number] 1 1 Encounter Details Date Type Department Care Team Description 09/05/2021 Surgery Gastroenterology at [facility] Kristina Alcocer, COLONOSCOPY, [facility] Jermain [place] [address] [facility] [phone] [place], [place] [address] Social History Tobacco Use Types Packs/Day [...] 8:45 AM EST Oxygen Saturation 98% 09/05/2021 8:45 AM EST Inhaled Oxygen Concentration - - [...] occurs, please contact your Doctor. Please call [phone] before 8pm Mon-Fri with problems, questions or concerns. If you call after 8pm or on weekends, call the Hospital at [phone] and ask to speak to the Dog Hair Clipper lathe set up person and the insulation board head saw operator will contact that person for you. When should you call for help? Call [phone] anytime you think you may need emergency [...] any problems. Where can you learn more? [facility] View your After Visit Summary and more online at [email or web address] If you would like to provide feedback about your hospital experience, please call the Office of Patient and Family Relations at . If you have received this After Visit Summary in error, please immediately return it in person to the department, or notify the [facility] Privacy Office by calling toll free at between the hours of 8AM and 5PM to arrange for our retrieval of the documents at no cost to you. Content Version: 12.2 ?? [id number] [employer]. Care instructions adapted under license by [facility]. If you have questions about a medical condition or this instruction, always ask your healthcare professional. [employer] disclaims any warranty or liability for your [...] TIMES PER WEEK D2) 50,000 unit Capsule [employer]Touch Ultra Test TEST ONCE DAILY 0 03/30/2021 [...] (Flonase) 50 SPRAYS IN EACH NOSTRIL mcg/actuation [place], DAILY Suspension acetaminophen Take 3 tablets by [...] Birthdate: 1970 Admit date: 09/05/2021 Attending Physician: Kristina Alcocer MD Gastroenterology and Hepatology Pre-Procedure History [...] Augustin APRN Section of Gastroenterology [place] [address] documented in this encounter Plan of Treatment [...] encounter Results COLONOSCOPY (09/05/2021 7:38 AM EST) [facility] Method Time Signature COLONOSCOPY [facility] PROVATION Endoscopy Procedure Date: 09/05/2021 7:38 AM ? Patient Name: Lynne Henderson ? Date of : 1970 ? Age: 50 ? Order #: [id number] ? Instrument Name: [id number] ? Procedure: ? Colonoscopy Indications: ? Screening for colorectal malignant ? neoplasm Providers: ? Kristina Alcocer MD, Nadira Gregory RN, ? Wong [...] was evaluat ed using ? the BBPS ([place] Bowel Prepar ation ? Scale) with scores [...] criteria for high risk CPT copyright 2019 [employer]. All rights reserved. The codes documented in this report are preliminary and upon qualifications examiner review may be revised to meet current compliance requirements. Attending Participation: ? I personally performed the entire procedure. ? Kristina Alcocer MD Kristina Alcocer MD 09/05/2021 9:05:00 AM This report has been signed electronically. Number of Addenda: 0 Note Initiated On: 09/05/2021 7:38 AM Specimen (Source) Anatomical Collection Method Collection Time Re ceived Time Location / / Volume Laterality 09/05/2021 7:38 AM EST Annette Duncan MD GENERAL SURGICAL ORDERABLES Performing Organization Address City/State/ZIP Code Phon e Number [place] (ABNORMAL) POCT Glucose (09/05/2021 7:23 AM EST) P athologist Signature POC Glucose 205 (H) 65 - 199 [place] mg/dL [facility] Comment: Supplemental ranges: <140 mg/dL before meals <180 mg/dL all other times of the day Specimen Anatomical Collection Method Collection Time Receive d Time (Source) Location / / Volume Laterality Blood 09/05/2021 7:23 AM 9:00 EST AM EST Kristina Alcocer MD POINT OF CARE TEST ORDERABLE S Performing Organization Address City/State/[place] [address] documented in this encounter Visit Diagnoses Diagnosis Abnormal finding on GI tract imaging Nonspecific (abnormal) findings on radio logical and other examination of gastrointestinal tract documented in this encounter Administered Medications Inactive Administered Medications - up to 3 most recent administrations Medication Order MAR Action Action Date Dose Rate Site fentaNYL (pf) (50 mcg/mL) Given 09/05/2021 8:28 AM EST 50 mcg Right Arm multi-dose injection ONCE PRN, Starting on Fri09/05/21 at 0810, Until Fri09/05/21 at 1129, Intra-Operative (Intra-Procedure), Routine Given 09/05/2021 8:20 AM EST 50 mcg Right Arm Given 09/05/2021 8:16 AM EST 50 mcg Right Arm midazolam (pf) (Versed) (1 mg/mL) multi-dose Given 09/05/2021 8: 20 AM EST 1 mg injection ONCE PRN, Starting on Fri09/05/21 at 0810, Until Fri09/05/21 at 1129, Intra-Operative (Intra-Procedure), Routine Given 09/05/2021 8:16 AM EST 1 mg Given 09/05/2021 8:13 AM EST 1 mg documented in this encounter Active and Recently Administered Medications Times are shown in EST. PRN Medication Order 09/03/2021 09/04/2021 09/05/2021 fentaNYL (pf) (50 mcg/mL) multi-dose injection (CANCELED) 0810 (Given - Provider: Nadira Gregory RN)0813 (Given - Provider: Nadira Gregory RN)0816 (Given - Provider: Nadira Gregory RN)0820 (Given - Provider: Nadira Gregory, CONNIE)0828 (Given - Provider: Nadira Gregory RN) ONCE PRN, Starting on Fri09/05/21 at 0810 , Until Fri09/05/21 at 1129, Intra- Operative (Intra-Procedure), Routine midazolam (pf) (Versed) (1 mg/mL) multi-dose injection (CANCELED ) 0810 (Given - Provider: Nadira Gregory, RN)0813 (Given - Provider: Nadira Gregory, RN)0816 (Given - Provider: Nadira Gregory RN)0820 (Given - Provider: Nadira Gregory RN) ONCE PRN, Starting on Fri09/05/21 at 0810 , Until Fri09/05/21 at 1129, Intra- Operative (Intra-Procedure), Routine documented in this encounter Care Teams Paper Twister Relationship Specialty Start Date End Date Annette Duncan MD PCP - General Family Medicine 01/20/[address] [place] [address] documented as of this encounter
--- OUTSIDE RECORDS SUMMARY | 2022-02-01 03:20 | XMS_ITS | Encounter Summary ---
:1970 Author Organization [place] [address] Care Team Providers Name Role Phone Annette Duncan MD Primary Care Provider Reason for Referral Diagnostic Test (Routine) - Closed Specialty Diagnoses / Procedures Referred By Contact Refer red To Contact Gastroenterology Diagnoses Constipation, unspecified constipation type ARM for constipation AFTER COLONOSCOPY Jana Dill [facility] [place] [facility] Gastro 4t Procedures High Definition Anal Manometry ARM for constipation PA [facility] [place] [address] [place] [address] Referral ID Status Reason Start Date Expiration Date Visits V isits Requested Authorized [id number] Closed Consult, 08/21/2021 08/21/2022 1 1 Test & Treat Reason for Visit Consultation (Urgent) - Authorized Specialty Diagnoses / Procedures Referred By Contact Refer red To Contact Gastroenterology Diagnoses Hemorrhage of anus and rectum Noninfective gastroenteritis and colitis, unspecified Abnormal weight loss BRBPR Annette Duncan MD [facility] [place] Gastro 4l [address] [facility] [address] [place], [place] [address] [place] [phone] Phone: Fax: Referral ID Status Reason Start Expiration Visits Visits Date Date Requested Authorized [id number] Authorized Consult, 08/10/2021 08/10/2022 6 6 Test & Treat Connection [facility] PCP Updated and/or Approved Encounter Details Date Type Department Care Team Description 08/21/2021 TH Visit Gastroenterology at [facility] Aniyah, Abnormal finding on GI tract imaging; (TeleHealth) [facility] RON Lucio Constipation, [place] [address] [facility] [phone] [facility] [place] [address] Social History Tobacco Use Types Packs/Day Years Used Date Never Smoker Sex Assigned at Date Recorded Female 08/13/2021 1:53 PM EST documented as of this encounter Progress Notes Jana Dill PA - 08/21/2021 9:30 AM EST GASTROENTEROLOGY TELEHEALTH PROGRAM - NEW PATIENT VISIT Chief Complaint: Lynne Henderson is a 50 y.o. patient referred for consultation by Dr. Duncan for abdominal pain and hematochezia History of Present Illness: 50-year-old female referred to gastroenterology for abdominal pain and hematochezia with abnormal imaging in June. CT scan was performed at [facility] on 06/22/2021. Impression There are findings suggestive of colitis in the descending colon. Left adrenal mass noted, indeterminate for malignancy, adrenal protocol CT scan recommended. She did have a follow-up MRI on 08/09/2021 also revealing a 3.9 x 2.6 x 2.4 cm left adrenal mass. She did see [facility] general surgery last week, I am unable to see this note currently but Kimmie ramos she is planning to have surgery November 01. Currently: She is feeling okay though she has had 3 episodes since June. Her episode in June was most severe associated with nausea, vomiting and diarrhea, lasting 12 hours. She then developed rectal bleeding She had 3 more episodes with nausea and diarrhea but no rectal bleeding nor vomiting. Episodes lasted several hours. She has some associated abdominal pain, typically LUQ. She has not noted an association between her symptoms and eating. She is having a bowel movement every several days- this represents her normal bowel pattern. For herconstipation she has tried: dulcolax, miralax, fiber in diet. Constipation has been an issue for several years She uses motrin occasionally, typically a few times per month Appetite and weight stable She had a colonoscopy on July 20, 2021 but she tells the prep was ineffective. She used miralax prep. She is schedule for a repeat colonoscopy next week Overall, intermittent abdominal pain, diarrhea, nausea and vomiting have been occurring for 7+ years Review of systems: 14-point review of systems reviewed and negative except as above. Medications: ??? metFORMIN (GLUCOPHAGE) 1,000 mg Tablet ??? HumuLIN 70/30 U-100 KwikPen Insulin Pen ??? estradioL (ESTRACE) 0.5 mg Tablet ??? famotidine (Pepcid) 20 mg Tablet ??? ergocalciferoL, vitamin D2, (vitamin D2) 50,000 unit Capsule ??? OneTouch Ultra Test Strip ??? lisinopriL-hydrochlorothiazide (zestoretic) 20-25 mg Tablet ??? loratadine (Claritin) 10 mg Tablet ??? metoprolol succinate XL (Toprol-XL) 25 mg Tablet Sustained Release 24 hr ??? venlafaxine XR (Effexor XR) 75 mg Capsule, Sust. Release 24 hr ??? Ozempic 1 mg/dose (4 mg/3 mL) Pen Injector ??? fluticasone propionate (Flonase) 50 mcg/actuation [place], Suspension ??? escitalopram (LEXAPRO) 20 mg tablet Allergies: is allergic to codeine. 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 She also was found to have an adrenal mass and is scheduled for surgery in October. She tells me she has been having episodic abdominal pain for at least 7 years though her episode in June was her most severe episode. She had significant rectal bleeding that persisted prompting EDevaluation. She also has a history of chronic constipation where she moves her bowels typically onceevery 5 days though she has gone a week or longer without having a bowel movement. #Abnormal imaging-we discussed her CT scan in detail and reviewed possible etiologies of colitis. She did have a colonoscopy attempted last month, however prep was poor and the colonoscopy was aborted and is rescheduled for next week at her local institution. We discussed proceeding with stool studiesto include a fecal calprotectin. I also recommended scheduling a colonoscopy here at [facility] to evaluate for structural abnormalities which may contribute to constipation and to evaluate for colitis as mentioned on CT scan. She is agreeable to have her colonoscopy here at [facility] and will call later todayor tomorrow to schedule #Constipation-we discussed how her constipation may be contributing to her episodic abdominal pain, nausea and diarrhea. She has tried some vynt-ywi-fymigim products over the years without significant symptom improvement. As above, we will proceed with a colonoscopy with an extended, 2- day prep given her first failed prep last month. We spent time today discussing possible causes of constipation including slow transit and pelvic floor dysfunction. If her colonoscopy is unrevealing we discussed proceeding with anorectal manometry which I discussed with her in detail. We discussed how slow motility tends to be managed with medications whereas pelvic floor dysfunction/dyssynergic defecation responds better to pelvic floor physical therapy. She is agreeable to proceed with anorectal manometry if colonoscopy is unrevealing. I will make recommendations regarding management of constipation after work-up has been completed. All of her questions today were answered Summary of recommendations 1. Stool studies at her local hospital-she understands there may be a delay in us receiving results 2. Colonoscopy here at [facility] with an extended/2-day prep 3. Anorectal manometry to evaluate for pelvic floor dysfunction if colonoscopy is unrevealing 4. Follow-up to discuss management of constipation after colonoscopy and possibly anorectal manometry has been completed RON Ocnonor [facility] [place] [id number] documented in this encounter Plan of Treatment Scheduled Orders Name Type Priority Associated Diagnoses Order S chedule ENDOSCOPY CASE Procedures Routine Abnormal finding on GI Ord ered: 08/21/2021 REQUEST: COLONOSCOPY, tract imaging DIAGNOSTIC Calprotectin, Stool Lab Routine Abnormal finding on G I Expected: tract imaging 08/21/2021, Expires: 2022 High Definition Anal GI Routine Constipation, Expect ed: Manometry unspecified constipation type (Approximate), Expires: 2022 documented as of this encounter Visit Diagnoses Diagnosis Abnormal finding on GI tract imaging Nonspecific (abnormal) findings on radio logical and other examination of gastrointestinal tract Constipation, unspecified constipation t ype documented in this encounter Care Teams Sand Miller Relationship Specialty Start Date End Date Annette Duncan MD PCP - General Family Medicine 01/20/[address] [place] [address] documented as of this encounter
--- OUTSIDE RECORDS SUMMARY | 2022-02-01 03:20 | XMS_ITS | Encounter Summary ---
:1970 Author Organization [facility] [place] [address] Care Team Providers Name Role Phone Annette Duncan MD Primary Care Provider Reason for Visit Reason Onset Date Comments Reminder Appointment 08/21/2021 Encounter Details Date Type Department Care Team Description 08/21/2021 Telephone Gastroenterology at [facility] [place], [place] Appointment [facility] [place] [address] Social History Tobacco Use Types Packs/Day Years Used Date Never Smoker Sex Assigned at Date Recorded Female 08/13/2021 1:53 PM EST documented as of this encounter Miscellaneous Notes Telephone Encounter - Afia Young LNA - 08/21/2021 8:27 AM EST Called patient to review medications and allergies for their upcoming gastroenterology Type of Appointment: Telehealth appointment. Reach Patient during MA Check: Yes Notes for the provider: Notes for the nurse: documented in this encounter Plan of Treatment Not on filedocumented as of this encounter Visit Diagnoses Not on filedocumented in this encounter Care Teams [employer] Relationship Specialty Start Date End Date Annette Duncan MD PCP - General Family Medicine 01/20/[address] [place], [place] [id number] documented as of this encounter
--- OUTSIDE RECORDS SUMMARY | 2022-02-01 03:20 | XMS_ITS | Encounter Summary ---
:1970 Author Organization [facility] [place] [address] Care Team Providers Name Role Phone Annette Duncan MD Primary Care Provider Encounter Details Date Type Department Care Team Description 08/08/2017 Ancillary Procedure Radiology Library at [facility] Annette lara MD [facility] [place] [address] [phone] (Wo rk) [phone] Social History Tobacco Use Types Packs/Day Years Used Date Never Assessed Sex Assigned at Date Recorded Female 08/13/2021 1:53 PM EST documented as of this encounter Plan of Treatment Not on filedocumented as of this encounter Procedures Procedure Name Priority Date/Time Associated Diagnosis Comme nts FILM LIBRARY Routine 08/08/2017 12:00 AM Results for this STORAGE ONLY CT EST procedure ar e in PELVIS the results section. documented in this encounter Results Film Library- Storage Only CT Pelvis (08/08/2017 12:00 AM EST) Specimen (Source) Anatomical Location Collection Method / Collectio n Time Received Time / Laterality Volume Narrative RAD - 06/27/2021 1:09 PM EST This exam is auto-finalizing. It's purpo se is for storage only. Annette Duncan MD [place] FILM LIBRARY ORDERABLES Performing Organization Address City/State/ZIP Code Phon e Number RAD [place], [place] documented in this encounter Visit Diagnoses Not on filedocumented in this encounter Care Teams Professor Of Art Relationship Specialty Start Date End Date Annette Duncan MD PCP - General 06/26/10 01/19/18 [address] [place] [address] documented as of this encounter
--- OUTSIDE RECORDS SUMMARY | 2022-02-01 03:20 | XMS_ITS | Encounter Summary ---
:1970 [place] [address] Care Team Providers Name Role Phone Annette Duncan MD Primary Care Provider Reason for Visit Reason Comments Establish Care Consultation (Urgent) - Closed Specialty Diagnoses / Procedures Referred By Contact Refer red To Contact General Surgery Diagnoses Other specified disorders of adrenal gland ADRENAL MASS GREATER THAN 4CM IN DIAMETER Annette Duncan MD [facility] Gen Surgery [address]l [address] [place] [phone] Phone: Fax: Referral ID Status Reason Start Date Expiration Date Visits V isits Requested Authorized [id number] Closed Consult, Test 06/25/2021 06/25/2022 [facility] PCP Updated and/or Approved Encounter Details Date Type Department Care Team Description 08/17/2021 Office Visit General Surgery at Nery Frederick MD Adrenal mass greater [facility] than 4 cm in diameter [facility] with no history of Drive GENERAL SURGERY malignant neoplasm [place], [place] [phone] Social History Tobacco Use Types Packs/Day Years Used Date Never Smoker Sex Assigned at Date Recorded Female 08/13/2021 1:53 PM EST documented as of this encounter Last Filed Vital Signs Vital Sign Reading Time Taken Comments Blood Pressure 135/88 08/17/2021 12:49 PM EST Pulse 88 08/17/2021 12:49 PM EST Temperature - - Respiratory Rate 16 08/17/2021 12:49 PM EST Oxygen Saturation 99% 08/17/2021 12:49 PM EST Inhaled Oxygen Concentration - - Weight 85.8 kg (189 lb 3.2 oz) 08/17/2021 12:49 PM EST Height 162.5 cm (5' 3.98) 08/17/2021 12:49 PM EST Body Mass Index 32.5 08/17/2021 12:49 PM EST documented in this encounter Progress Notes Nery Frederick MD - 08/17/2021 1:00 PM EST Images from the original note were not included. ENDOCRINE SURGERY ADRENAL CONSULTATION Dear Providers, Thank you for referring your patient, Lynne Henderson, to [facility] for an adrenal mass I had the opportunity to evaluate Lynne Henderson today for a 4.2 cm Left adrenal mass. The adrenal mass was initially found incidentally on imaging. No previous imaging of the abdomen for comparison. 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 The biochemical work-up to date shows: ?? 24 hour urine free cortisol: 7 (wnl) ?? Plasma metanephrines: wnl ?? Plasma normetanephrines: wnl ?? Plasma aldosterone: <4 ?? Plasma renin activity: 4.3 Review of Symptoms: Negative Past Medical History: IDDM, HTN, Carcinoid of appendix Past Surgical History: Hysterectomy, appendectomy Family History: The family history is not on file.. There is no history of thyroid cancer. No pituitary, pancreas or adrenal tumors. No parathyroid disease. Mother lung cancer, MGM Breast cancer. Father passed age 19. Social History: The patient reports that she has never smoked. She does not have any smokeless tobacco history on file. The patient has no history on file for alcohol use. Allergies: Allergies Allergen Reactions ??? Codeine Nausea And Vomiting Medications: Current Outpatient Medications: ??? metFORMIN (GLUCOPHAGE) 1,000 mg Tablet, Twice a day, Disp: , Rfl: ??? HumuLIN 70/30 U-100 KwikPen Insulin Pen, INJECT 25 UNITS SUBCUTANEOUSLY EVERY MORNING, Disp: , Rfl: ??? estradioL (ESTRACE) 0.5 mg Tablet, TAKE 1 TABLET BY MOUTH DAILY, Disp: , Rfl: ??? ergocalciferoL, vitamin D2, (vitamin D2) 50,000 unit Capsule, TAKE 1 CAPSULE BY MOUTH THREE TIMES PER WEEK, Disp: , Rfl: ??? OneTouch Ultra Test Strip, TEST ONCE DAILY, Disp: , Rfl: ??? lisinopriL-hydrochlorothiazide (zestoretic) 20-25 mg Tablet, Daily, Disp: , Rfl: ??? loratadine (Claritin) 10 mg Tablet, TAKE 1 TABLET BY MOUTH DAILY, Disp: , Rfl: ??? metoprolol succinate XL (Toprol-XL) 25 mg Tablet Sustained Release 24 hr, , Disp: , Rfl: ??? venlafaxine XR (Effexor XR) 75 mg Capsule, Sust. Release 24 hr, Daily, Disp: , Rfl: ??? Ozempic 1 mg/dose (4 mg/3 mL) Pen Injector, once a week., Disp: , Rfl: ??? escitalopram (LEXAPRO) 20 mg tablet, 20MG = 1 Tablet(s), PO, Once daily, Disp: , Rfl: ??? famotidine (Pepcid) 20 mg Tablet, TAKE 1 TABLET BY MOUTH DAILY, Disp: , Rfl: ??? fluticasone propionate (Flonase) 50 mcg/actuation [place], Suspension, SHAKE LIQUID AND USE 2 SPRAYS IN EACH NOSTRIL DAILY, Disp: , Rfl: Physical Exam: Vitals: 08/17/21 1249 BP: 135/88 BP Location (NBP): Right arm Pulse: 88 Resp: 16 SpO2: 99% Weight: 85.8 kg (189 lb 3.2 oz) Height: 162.5 cm (5' 3.98) Body mass index is 32.5 kg/m??. Constitutional: Well-appearing, No acute distress, Central obesity absent, Wang facies absent Neuro: Alert, Answers questions appropriately Eyes: Extraocular movements intact. ENT: Mucous membranes moist. Heart: Regular rate Lungs: Unlabored on room air. Normal respiratory effort Abdomen: Soft, ND, Non-tender, no masses palpated Extremities: gross movement intact Skin: Warm and dry. No rashes. Bruising absent. Striae absent. [place] hump absent. Psych: Normal affect Laboratory data: See HPI Imaging: MRI Abdomen: Assessment and Plan: Lynne Henderson is a 50 y.o. female with a history of Left adrenal mass that is consistent with aNon-functioning nodule. The laboratory work-up demonstrates that the mass is not functional. The CT and MRI images are consistent with a Benign lesion. On review of the CT scan the lesion measures up to 4.2 cm in size though the report documents 5.5cm but I suspect this was a typo or error in dictation. On MRI it does have signal drop out which suggests high fat content and likely benign adenoma. We spent time discussion indications for adrenalectomy (indeterminate lesions, concern for cancer, functional nodules, and nodules >4cm). As the nodule increases in size, there is increased riskof malignancy - around 4cm that risk is slightly higher and for that reason consideration of remove.However with that being said, with the nodule has very benign features on imaging, then it is also reasonable to continue surveillance with repeat imaging in 6-12 months. I have discussed both options with the patient and she would prefer to proceed with surgery at this time. Plan for laparoscopic left adrenalectomy (w or w/out robot depending on availability). The patient is aware that the risks of surgery include bleeding (which could be catastrophic and lead to an ICU stay or very rarely ), infection (which could require a drain and increased hospital stay), injury to the kidney, injury to the pancreas, or major blood vessels such as the IVC or renal vessels. She understands that in very rare cases this could lead to hypertension or even more rarely a nephrectomy. Lastly, the patient is also aware of the risk for conversion to an open procedure and the potential for hernias, flank or leg numbness and blood clot formation. We discussed the length of stay, post operative pain, and anticipated recovery/outcomes. After our discussion, the patient agreed to proceed with surgery and provided informed consent. I spent the majority of this 30 minute visit discussing the diagnosis, treatment plan, and expected outcomes. I will certainly keep you updated as to our operative findings, the patient???s perioperative course, and the final pathology when that becomes available. Please let me know if you have any questions or concerns regarding our visit today or our plans for surgery. Sincerely, Nery Frederick MD [employer] [facility], Division of Endocrine Surgery Section of General Surgery [facility] documented in this encounter Plan of Treatment Not on filedocumented as of this encounter Procedures Procedure Name Priority Date/Time Associated Comments Diagnosis [facility] METANEPHRINES, Routine 08/17/2021 2:05 PM Adrenal mass Results for this PLASMA EST greater than 4 cm procedure are in in diameter with no the resu lts history of section. malignant neoplasm [facility] ALDOSTERONE, Routine 08/17/2021 2:05 PM Adrenal mass Re sults for this SERUM EST greater than 4 cm procedure are in in diameter with no the resu lts history of section. malignant neoplasm HC VENIPUNCTURE Routine 08/17/2021 2:05 PM Adrenal mass Result s for this EST greater than 4 cm procedure are in in diameter with no the resu lts history of section. malignant neoplasm documented in this encounter Results Renin Activity (08/17/2021 2:05 PM EST) P athologist Signature Renin Activity 4.3 ng/ml/hr [facility] Comment: REFERENCE VALUE------ (Peripheral vein specimen) Na-deplete, upright: ??Mean: 5.9 ??Range: 2.9-10.8 Na-replete, upright: ??Mean: 1.0 ??Range: < or =0.6-3.0 ADDITIONAL INFORMATIO N Testing performed by Liquid GOQiiograp hy-Tandem Mass Spectrometry (LC-MS/MS). This test was developed and its performa nce characteristics determined by [facility] in a manner co nsistent with CLIA requirements. This test has not been andres ared or approved by the U.S. Food and Drug Administration. Test Performed by: [facility] [address] [facility] [place] [address] It Associate: Perez Mcgarry M.D. Ph. D.; CLIA# [id number] Specimen Anatomical Collection Method Collection Time Receive d Time (Source) Location / / Volume Laterality Blood 08/17/2021 2:05 PM 2 3:20 EST PM EST Resulting Agency Comment Spec In Lab Nery Frederick MD CHEMISTRY ORDERABLES Performing Organization Address City/[facility]/ZIP Code Phon e Number [address] Aldosterone (08/17/2021 2:05 PM EST) athologist Signature Aldosterone <4.0 <=21 ng/dL [facility] Comment: ADDITIONAL INFORMATIO N Reference range for patients 11 years an d older is based on upright A.M. collection from subjects wi thout sodium restrictions. This test was developed and its performa nce characteristics determined by [facility] in a manner co nsistent with CLIA requirements. This test has not been andres ared or approved by the U.S. Food and Drug Administration. Test Performed by: [facility] [address] [facility] [place] [address] It Associate: Perez Mcgarry M.D. Ph. D.; CLIA# [id number] Specimen Anatomical Collection Method Collection Time Receive d Time (Source) Location / / Volume Laterality Blood 08/17/2021 2:05 PM 2 2:46 EST PM EST Resulting Agency Comment Spec In Lab Nery Frederick MD CHEMISTRY ORDERABLES Performing Organization Address City/State/[place] [address] Metanephrines, Fractionated Free, plasma (08/17/2021 2:05 PM EST) P athologist Signature Normetane Free 0.30 <0.90 [facility] nmol/L [facility] Comment: Test Performed by: [facility] [address] [facility] [place] [address] It Associate: Perez Mcgarry M.D. Ph. D.; CLIA# [id number] Metanephr Free <0.20 <0.50 nmol/L [facility] Comment: ADDITIONAL INFORMATIO N This test was developed and its performa nce characteristics determined by [facility] in a manner co nsistent with CLIA requirements. This test has not been andres ared or approved by the U.S. Food and Drug Administration. Test Performed by: [facility] [place] [address] It Associate: Perez Mcgarry M.D. Ph. D.; CLIA# [id number] Specimen Anatomical Collection Method Collection Time Receive d Time (Source) Location / / Volume Laterality Blood 08/17/2021 2:05 PM 2 3:20 EST PM EST Resulting Agency Comment Spec In Lab Nery Frederick MD CHEMISTRY ORDERABLES Performing Organization Address City/State/[place] [address] documented in this encounter Visit Diagnoses Diagnosis Adrenal mass greater than 4 cm in diamet er with no history of malignant neoplasm documented in this encounter Care Teams Draw Frame Runner Relationship Specialty Start Date End Date Annette Duncan MD PCP - General Family Medicine 01/20/[address] [place] [address] documented as of this encounter
--- OUTSIDE RECORDS SUMMARY | 2022-02-01 03:20 | XMS_ITS | Encounter Summary ---
:1970 Author Organization [facility] [place] [address] Care Team Providers Name Role Phone Annette Duncan MD Primary Care Provider Encounter Details Date Type Department Care Team Description 08/09/2021 Ancillary Procedure Radiology Library at Annette Jimenez MD [facility] [address] [phone] (Wo rk) [phone] Social History Tobacco Use Types Packs/Day Years Used Date Never Assessed Sex Assigned at Date Recorded Female 08/13/2021 1:53 PM EST documented as of this encounter Plan of Treatment Not on filedocumented as of this encounter Procedures Procedure Name Priority Date/Time Associated Diagnosis Comme nts FILM LIBRARY Routine 08/09/2021 11:32 AM Results for this STORAGE ONLY MR EST procedure ar e in ABDOMEN the results section. documented in this encounter Results Film Library- Storage Only MR Abdomen (08/09/2021 11:32 AM EST) Specimen (Source) Anatomical Location Collection Method / Collectio n Time Received Time / Laterality Volume Narrative RAD - 08/09/2021 11:32 AM EST This exam is auto-finalizing. It's purpo se is for storage only. 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
--- OUTSIDE RECORDS SUMMARY | 2022-02-01 03:20 | XMS_ITS | Encounter Summary ---
:1970 [place] [address] Care Team Providers Name Role Phone Annette [...] Expiration Date Visits Requ ested Visits Authorized [id number] 1 1 Encounter Details Date Type Department Care Team Description 11/01/2021 - Hospital Encounter PACU at Nery Platt MD 11/02/[address] [phone] (Work) [phone] Social History Tobacco Use Types Packs/Day Years [...] Sign Reading Time Taken Comments Blood Pressure 129/60 11/02/2021 8:00 AM EDT Pulse 101 11/01/2021 10:45 PM EDT Temperature 36.3 ??C (97.3 ??F) 11/02/2021 8:00 AM EDT Respiratory Rate 16 11/02/2021 8:00 AM EDT Oxygen Saturation 96% 11/02/2021 8:00 AM EDT Inhaled Oxygen Concentration - - Weight 85.7 kg (189 lb) 11/01/2021 2:04 PM EDT Height 162.6 cm (5' 4.02) 11/01/2021 2:04 PM EDT Body Mass Index 32.43 11/01/2021 2:04 PM EDT documented in this encounter Discharge Summaries Florentino Holly PA - 11/02/2021 8:14 AM EDT Endocrine Surgery Inpatient - Discharge Summary Patient Name: Lynne Henderson Patient Age: 50 y.o. 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 H/O total adrenalectomy Resolved Hospital Problems No resolved problems to display. There are no active non-hospital problems to display for this patient. HPI: Lynne Henderson is a 50 y.o. female who presented on 11/01/21 for elective resection of a 4.2-cm non-functional left adrenal mass. Operations/Major Procedures: Operations: 11/01/2021 Surgeon(s) and Role: * Nery Frederick MD - Primary * Florentino Holly PA - Physician Produce Associate * Enmanuel Sandra MD - Resident: Procedure(s): @ROBOTIC LAPAROSCOPIC ADRENALECTOMY (WRVU 20.73) MODIFIER ROBOT,ROBINA DELVALLE Operative Findings: left adrenal nodule contained to the gland. Left adrenal vein small and taken with vessel sealer. Other Major Procedures: N/A Hospital Course: Lynne Henderson was [facility] via the Same Day Program. She was brought to the operating room on 11/01/[address] Frederick performed surgery as described above. She tolerated the operation well and without complication. She was admitted post- operatively for continued rehabilitation, clinical monitoring and further management. The patient's hospital course was uncomplicated. She was deemed stable for discharge on post-operative day 1 having achieved adequate pain control onoral analgesics, ambulating and voiding independently, and tolerating a regular diet. Important Studies and Lab Data: See below. Pathology: Pending Microbiology: COVID-19 PCR [[id number]] Collected: 11/01/212219 Lab Status: Final result Specimen: Nasopharyngeal Swab Updated: 11/02/21154 SARS-CoV-2 RNA PCR Labs: No results found for: NA, K, CL, CO2, BUN, CREATININE, GLUCOSE CBC No results found for: WBC, HGB, HCT, PLATELET No results found for: PREALBUMIN No results for input(s): PT, PTT, INR in the last 168 hours. Pending Lab Data at Discharge: No current labs Studies: N/A Discharge Exam: Last value Range last 12 hrs Temperature Temp: 36.3 ??C (97.3 ??F) Temp: [36.3 ??C (97.3 ??F)] Heart Rate Heart Rate: (!) 101 Heart Rate: [88-101] Blood Pressure BP: 129/60 BP: (95-129)/(50-65) Respiratory Rate Resp: 16 Resp: [12-18] SpO2 SpO2: 96 % SpO2: [94 %-99 %] I/Os: I/O last 3 completed shifts: In: 3500 [I.V.:3500] Out: 1000 [Urine:950; Blood:50] I/O this shift: In: - Out: 550 [Urine:550] Gen: NAD, alert & oriented x3 HEENT: normocephalic, atraumatic, sclerae anicteric Pulm: non-labored breathing on RA Card: RRR on monitor Abd: Non-distended, soft, appropriate left-sided radu-incisional tenderness. Left-sided incisions well-healing and intact with overlying dermabond, no erythema/drainage Ext: warm, dry, no edema Neuro: A&Ox3, nonfocal, conversant Drains/lines at discharge: N/A Discharge Plans: Discharge to: Home VNA: No Discharge Conditions/Prognosis: Stable Discharge Medications: The following medications have been prescribed for you. If you notice any adverse reactions to your medications, please contact your primary care physician immediately or go to the nearest Emergency Department. Your Medications New Medications Dose Details acetaminophen 325 mg Tab Commonly known as: Tylenol Take 3 tablets by mouth every 6 hours as needed for Pain. 975 mg Quantity: 30 tablet Refills: 1 HYDROmorphone 2 mg Tab Commonly known as: Dilaudid Take 1 tablet by mouth every 4 hours as needed for Pain. 2 mg Quantity: 7 tablet Refills: 0 ibuprofen 600 mg Tab Commonly known as: Advil Take 1 tablet by mouth every 6 hours as needed for Pain. 600 mg Quantity: 30 tablet Refills: 12 Continued medications, unchanged Dose Details ergocalciferoL (vitamin D2) 50,000 unit Cap Commonly known as: vitamin D2 TAKE 1 CAPSULE BY MOUTH THREE TIMES PER WEEK Refills: 0 estradioL 0.5 mg Tab Commonly known as: ESTRACE TAKE 1 TABLET BY MOUTH DAILY Refills: 0 famotidine 20 mg Tab Commonly known as: Pepcid TAKE 1 TABLET BY MOUTH DAILY Refills: 0 fluticasone propionate 50 mcg/actuation Spsn Commonly known as: Flonase SHAKE LIQUID AND USE 2 SPRAYS IN EACH NOSTRIL DAILY Refills: 0 HumuLIN 70/30 U-100 KwikPen 100 unit/mL (70-30) Inpn INJECT 25 UNITS SUBCUTANEOUSLY EVERY MORNING Generic drug: Insulin NPH & Regular Human Refills: 0 lisinopriL-hydrochlorothiazide 20-25 mg Tab Commonly known as: zestoretic Daily Refills: 0 loratadine 10 mg Tab Commonly known as: Claritin TAKE 1 TABLET BY MOUTH DAILY Refills: 0 metFORMIN 1,000 mg Tab Commonly known as: GLUCOPHAGE Twice a day Refills: 0 metoprolol succinate XL 25 mg Tablet sr Commonly known as: Toprol-XL Refills: 0 OneTouch Ultra Test Strp TEST ONCE DAILY Generic drug: blood sugar diagnostic strips Refills: 0 Ozempic 1 mg/dose (4 mg/3 mL) Pnij once a week. Generic drug: semaglutide Refills: 0 venlafaxine XR 75 mg Cp24 Commonly known as: Effexor-XR Daily Refills: 0 STOPPED Medications Lexapro 20 mg Tab Generic drug: escitalopram Updated Allergies/ADRs: Allergies Allergen Reactions ??? Codeine Nausea And Vomiting Scheduled Appointments: Future Appointments Date Time Provider Department Center 11/13/2021 10:00 AM MOTILITY LAB 2 [facility] GAS 4T [facility] 11/16/2021 11:30 AM Nery Frederick MD [facility] SURG [facility] Outpatient Services/Studies: No discharge procedures on file. Instructions Given to Patient at Discharge:. An After Visit Summary was printed and given to the patient. Patient Instructions [facility] Department of Surgery Discharge Instructions Following Minimally-Invasive Adrenalectomy CALL YOUR PHYSICIAN'S OFFICE IF: ??? You have a fever greater than 101 degrees Farenheit (38.3C) within one month of your surgery. ? ? You have diarrhea or vomiting for >24 hours, stop having bowel movements and/or passing flatus, have pain with urination. ??? You have worsening pain, not controlled with your pain medication. ??? You develop redness, swelling, or new drainage from your wound. Medications: - Pain Control - Non-narcotic pain medication - We recommend taking Tylenol 1000mg and ibuprofen 600mg together every 6 hours. - Do not take more than 4,000mg (4g) of Tylenol in 24hours. - Narcotic pain medication - You have been prescribed 7 tablets of 2 mg of dilaudid. This is a narcotic medication that has several side effects/warnings: 1. Constipation: Narcotics can cause severe constipation. Please take BOTH a stool softener and pro-motility/laxative agent whenever taking narcotics, unless otherwise advised. These are over the counter. (Stool Softeners: Colace, Surfak. Laxatives/Stimulants: Miralax, Milk of Magnesia, Senna, Bisacodyl). 2. Altered mental status: Narcotics can make you sleepy and have delayed reactions. Therefore, do not drive or operate any heavy machinery while taking narcotics. 3. Addictive: Narcotics are addictive. Please take as prescribed and wean down/decrease your dose as soon as you can tolerate. 4. Restricted: Narcotics are highly regulated. If you are running out of your prescription and feelyou will need more, plan ahead and call your Physician as these cannot be filled electronically or at night/over the weekend. Again, as your pain decreases, reduce your use of these medications. You donot need to use all of the pills provided. - Other Medication(s) - The remainder of your medications are listed in the first section of the After Visit Summary. Youmay resume all of your home medications as normal. Driving Restrictions: - No driving if you are too sore from surgery to enter or exit your vehicle comfortably, or if you are too sore to easily check your blind spot. No driving while using narcotic pain medications. Shower: - It is ok to shower 24 hours after surgery (Friday night). You can shower per usual routine and let soapy water run over your incision. Pat incision dry with a clean, dry towel. Do not submerge the wound under water (no swimming or soaking) for at least 6 weeks, or until approved by your surgeon. Diet: - You have been cleared to resume your regular diet. We recommend eating a regular healthy diet (ie; fresh fruits, vegetables and fiber-containing foods will assist in wound healing,) Activity: - It is normal to feel tired after surgery/hospitalization. Be as active as tolerated as this will improve recovery and prevent blood clots. - You should avoid any heavy lifting or strenuous activity for 4 weeks after surgery (no more than 10 lbs). A galloon of milk is a good estimate of the maximum you should be lifting while your wounds heal. - We recommend taking several slow, short walks each day for the first two weeks, and gradually increase your distance. We recommend at least 4 times a day. Wound/Incision Care: Closure: Your skin incisions are closed with: [x] Glue - There are sutures below the skin and the glue is the dressing. There is nothing to remove and the discoloration will go away in time. Infection: Observe for changes and alert the clinic if new/worsening redness or drainage. Things to avoid: Do not use creams, oils, or ointments on the wound. Keep wound open to air if it is not draining. Who to call? If you have concerns or questions: - During the day, it is best to call the [facility] to speak with the Surgery nurses. The number is [phone]. - During the night or weekends call the [facility] fermentation operator at [phone] and ask to speak to the surgery resident recreation professor for general surgery. Please note: Your surgeon may not be Investigations Consultant, especially during the night or on weekends, so be ready to describe yourself and your surgery when you call. Follow up appointments: Future Appointments Date Time Provider Department Center 11/13/2021 10:00 AM MOTILITY LAB 2 [facility] GAS 4T [facility] 11/16/2021 11:30 AM Nery Frederick MD [facility] SURG [facility] [x] Follow-up appointment with General Surgery has already been scheduled If you need a prior authorization, please call the General Surgery Clinic nurses [phone] for prior authorizations assistance General Instructions None Future Appointments and Orders Future Appointments and Orders Future Appointments Provider Department Dept Phone 11/13/2021 10:00 AM MOTILITY LAB 2 Gastroenterology at [facility] Arrive at: Global Logistics Manager Area 4T [phone] 11/16/2021 11:30 AM Nery Frederick MD General Surgery at [facility] Arrive at: [employer] Logistics Manager Area 4L [phone] Discharge References/Attachments: Discharge References/Attachments None Follow-up Recommendations for Providers: Medication changes: N/A Diet changes: N/A Other: N/A CC: Annette Duncan MD [phone] Signed: RON [facility] Endocrine Surgery Service Team Pager #[phone] 11/02/2021 9:52 AM For questions regarding this document or issues relating to this hospitalization on the Endocrine Surgery Service, please contact Nery Frederick MD's office at . documented in this encounter Discharge Instructions Patient InstructionsFlorentino Holly PA - 11/01/2021 8:43 PM EDT [facility] Department of Surgery Discharge Instructions Following Minimally-Invasive Adrenalectomy CALL YOUR PHYSICIAN'S OFFICE IF: You have a fever greater than 101 degrees Farenheit (38.3C) within one month of your surgery. You have diarrhea or vomiting for >24 hours, stop having bowel movements and/or passing flatus, have pain with urination. You have worsening pain, not controlled with your pain medication. You develop redness, swelling, or new drainage from your wound. Medications: - Pain Control - Non-narcotic pain medication - We recommend taking Tylenol 1000mg and ibuprofen 600mg together every 6 hours. - Do not take more than 4,000mg (4g) of Tylenol in 24hours. - Narcotic pain medication - You have been prescribed 7 tablets of 2 mg of dilaudid. This is a narcotic medication that has several side effects/warnings: 1. Constipation: Narcotics can cause severe constipation. Please take BOTH a stool softener and pro-motility/laxative agent whenever taking narcotics, unless otherwise advised. These are over the counter. (Stool Softeners: Colace, Surfak. Laxatives/Stimulants: Miralax, Milk of Magnesia, Senna, Bisacodyl). 2. Altered mental status: Narcotics can make you sleepy and have delayed reactions. Therefore, do not drive or operate any heavy machinery while taking narcotics. 3. Addictive: Narcotics are addictive. Please take as prescribed and wean down/decrease your dose as soon as you can tolerate. 4. Restricted: Narcotics are highly regulated. If you are running out of your prescription and feelyou will need more, plan ahead and call your Physician as these cannot be filled electronically or at night/over the weekend. Again, as your pain decreases, reduce your use of these medications. You donot need to use all of the pills provided. - Other Medication(s) - The remainder of your medications are listed in the first section of the After Visit Summary. Youmay resume all of your home medications as normal. Driving Restrictions: - No driving if you are too sore from surgery to enter or exit your vehicle comfortably, or if you are too sore to easily check your blind spot. No driving while using narcotic pain medications. Shower: - It is ok to shower 24 hours after surgery (Friday). You can shower per usual routine and let soapy water run over your incision. Pat incision dry with a clean, dry towel. Do not submerge the wound under water (no swimming or soaking) for at least 6 weeks, or until approved by your surgeon. Diet: - You have been cleared to resume your regular diet. We recommend eating a regular healthy diet (ie; fresh fruits, vegetables and fiber-containing foods will assist in wound healing,) Activity: - It is normal to feel tired after surgery/hospitalization. Be as active as tolerated as this will improve recovery and prevent blood clots. - You should avoid any heavy lifting or strenuous activity for 4 weeks after surgery (no more than 10 lbs). A galloon of milk is a good estimate of the maximum you should be lifting while your wounds heal. - We recommend taking several slow, short walks each day for the first two weeks, and gradually increase your distance. We recommend at least 4 times a day. Wound/Incision Care: Closure: Your skin incisions are closed with: [x] Glue - There are sutures below the skin and the glue is the dressing. There is nothing to remove and the discoloration will go away in time. Infection: Observe for changes and alert the clinic if new/worsening redness or drainage. Things to avoid: Do not use creams, oils, or ointments on the wound. Keep wound open to air if it is not draining. Who to call? If you have concerns or questions: - During the day, it is best to call the [facility] to speak with the Surgery nurses. The number is [phone]. - During the night or weekends call the [facility] fermentation operator at [phone] and ask to speak to the surgery resident recreation professor for general surgery. Please note: Your surgeon may not be Investigations Consultant, especially during the night or on weekends, so be ready to describe yourself and your surgery when you call. Follow up appointments: Future Appointments Date Time Provider Department Center 11/13/2021 10:00 AM MOTILITY LAB 2 [facility] GAS 4T [facility] 11/16/2021 11:30 AM Nery Frederick MD [facility] SURG [facility] [x] Follow-up appointment with General Surgery has already been scheduled If you need a prior authorization, please call the General Surgery Clinic nurses [phone] for prior authorizations assistance documented in this encounter Medications at Time of Discharge Medication Sig Dispensed Refills Start Date End Date HYDROmorphone Take 1 tablet by mouth 7 tablet 0 11/02/2021 (Dilaudid) 2 mg Tablet every 4 hours as needed for Pain. ibuprofen (Advil) 600 Take 1 tablet by mouth 30 tablet 12 mg Tablet every 6 hours as needed for Pain. acetaminophen (Tylenol) Take 3 tablets by mouth 30 tablet 1 11/02/2021 325 mg Tablet every 6 hours as needed for Pain. metFORMIN (GLUCOPHAGE) Twice a day 0 07/01/2017 1,000 mg Tablet HumuLIN 70/30 U-100 INJECT 25 UNITS 0 07/06/2021 KwikPen Insulin Pen SUBCUTANEOUSLY EVERY MORNING estradioL (ESTRACE) 0.5 TAKE 1 TABLET BY MOUTH 0 03/30/2021 mg Tablet DAILY famotidine (Pepcid) 20 TAKE 1 TABLET BY MOUTH 0 0 04/18/2021 mg Tablet DAILY ergocalciferoL, vitamin TAKE 1 CAPSULE BY MOUTH 0 08/02/2021 D2, (vitamin D2) 50,000 THREE TIMES PER WEEK unit Capsule OneTouch Ultra Test TEST ONCE DAILY 0 03/30/2021 Strip lisinopriL-hydrochlorot Daily 0 06/05/2015 hiazide (zestoretic) 20-25 mg Tablet loratadine (Claritin) TAKE 1 TABLET BY MOUTH 0 10 mg Tablet DAILY metoprolol succinate XL 0 08/14/2021 (Toprol-XL) 25 mg Tablet Sustained Release 24 hr venlafaxine XR Daily 0 07/10/2017 (Effexor-XR) 75 mg Capsule, Sust. Release 24 hr Ozempic 1 mg/dose (4 once a week. 0 08/15/2021 mg/3 mL) Pen Injector fluticasone propionate SHAKE LIQUID AND USE 2 0 1 08/11/2020 (Flonase) 50 SPRAYS IN EACH NOSTRIL mcg/actuation Penasco, DAILY Suspension documented as of this encounter Progress Notes Nadja Waterman RN - 11/02/2021 8:48 AM EDT 0710 - Report received and care assumed. Pt awake and alert, breakfast tray delivered. 0815 - OOB to BR, gait steady, gagan well. AM care done. 0945 - PA at , plan for D/C. 1030 - All instructions reviewed with patient and all questions answered. Will send IS home with patient and she is aware to continue to use at home. Elfego Khalil RN - 11/02/2021 7:11 AM EDT Handoff report given to Brisa RN Ethan Mckeon MD - 11/01/2021 10:17 PM EDT Post-Operative Check Lynne Henderson is a 50 y.o. female s/p Procedure(s): @ROBOTIC LAPAROSCOPIC ADRENALECTOMY (WRVU 20.73) MODIFIER ROBOT,TERRENCEI XI S: Pt resting comfortably in bed. Tolerating sips of fluids, has not yet voided. No nausea/vomiting,chest pain, SOB, pain well controlled, offers no complaints O: Temp: -- Heart Rate: [84-101] Resp: [14-19] BP: (81-105)/(46-68) SpO2: [88 %-99 %] Heart Rate from SpO2: [84 bpm-101 bpm] I/O last 3 completed shifts: In: 1000 [I.V.:1000] Out: - I/O this shift: In: 1500 [I.V.:1500] Out: 50 [Blood:50] Recent Results (from the past 24 hour(s)) ABO/Rh Typing Result Value Ref Range ABORh Type O Pos Antibody screen Result Value Ref Range Ab Screen Interp Negative Expires at 2359 on: 11/04/2021 ABORH Recheck Status Result Value Ref Range ABORH Recheck Order Order Placed ABORH Type Recheck Complete Type and Screen Validity Result Value Ref Range T&S only valid at [facility] Hosp POCT Glucose Result Value Ref Range POC Glucose 108 65 - 199 mg/dL POCT Glucose Result Value Ref Range POC Glucose 238 (H) 65 - 199 mg/dL POCT Glucose Result Value Ref Range POC Glucose 218 (H) 65 - 199 mg/dL POCT Glucose Result Value Ref Range POC Glucose 206 (H) 65 - 199 mg/dL POCT Glucose Result Value Ref Range POC Glucose 178 65 - 199 mg/dL Physical Exam General: Alert, no acute distress Head: Atraumatic, non cyanotic Cardiac: Regular rate Pulmonary: Normal respiratory effort Abdominal: Soft, non distended, minimally TTP surrounding incisions. Laparoscopic incisions well-approximated with dermabond in place. No active drainage, no surrounding erythema or ecchymosis. Neuro: Grossly intact, follows commands Extremities: Warm and well-perfused AP Lynne Henderson is a 50 y.o. female s/p laparoscopic left adrenalectomy currently in stable condition and recovering well - Regular diet - Pain well controlled - BP soft but HR wnl, will CTM - Continue mIVF 100cc/hr given soft BP until taking adequate po - Has not yet voided, repeat bladder scan now, SC as needed - SSI for elevated BG postop - Will admit to [facility] overnight for observation as it is late, pt is very sleepy and has not yet voided postoperatively Ethan Mckeon MD 11/01/2021 Surgical Oncology [id number] Ayah Gandhi RN - 11/01/2021 8:25 PM EDT Patient arrived from OR in bed, attached to monitors and alarms set appropriately for patient. Hypotensive. Additional fluid given. Insulin gtt running at 7 units/hr on arrival. Glucose 206. Plan to stop gtt and administer subq insulin 2044 - Insulin gtt stopped; orders for SSI received. 2204 - Dr Ethan Mckeon at bedside. Patient prefers to stay in hospital overnight which seems appropriate given patient's lethargy and nausea. Plan to admit patient. SBP>90 is acceptable, similar to pre-op pressure. 221 - Patient's Julien to bedside. 232 - Handoff to CONNIE Telles documented in this encounter H&P Notes Enmanuel Sandra MD - 11/01/2021 12:29 PM EDT Pre-operative Interval H&P Planned Procedure: robotic-assisted left adrenalectomy Lynne Henderson is a 50 y.o. 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 She reports no interval change in her overall health since last seeing Dr. Frederick in clinic on 08/17/21 - please see clinic note for further details. 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 Current Outpatient Medications on File Prior to Encounter Medication Sig Dispense Refill ??? metFORMIN (GLUCOPHAGE) 1,000 mg Tablet Twice a day ??? HumuLIN 70/30 U-100 KwikPen Insulin Pen INJECT 25 UNITS SUBCUTANEOUSLY EVERY MORNING ??? estradioL (ESTRACE) 0.5 mg Tablet TAKE 1 TABLET BY MOUTH DAILY ??? famotidine (Pepcid) 20 mg Tablet TAKE 1 TABLET BY MOUTH DAILY ??? ergocalciferoL, vitamin D2, (vitamin D2) 50,000 unit Capsule TAKE 1 CAPSULE BY MOUTH THREE TIMESPER WEEK ??? OneTouch Ultra Test Strip TEST ONCE DAILY ??? lisinopriL-hydrochlorothiazide (zestoretic) 20-25 mg Tablet Daily ??? loratadine (Claritin) 10 mg Tablet TAKE 1 TABLET BY MOUTH DAILY ??? metoprolol succinate XL (Toprol-XL) 25 mg Tablet Sustained Release 24 hr ??? venlafaxine XR (Effexor-XR) 75 mg Capsule, Sust. Release 24 hr Daily ??? Ozempic 1 mg/dose (4 mg/3 mL) Pen Injector once a week. ??? fluticasone propionate (Flonase) 50 mcg/actuation Penasco, Suspension SHAKE LIQUID AND USE 2 SPRAYS IN EACH NOSTRIL DAILY ??? escitalopram (LEXAPRO) 20 mg tablet 20MG = 1 Tablet(s), PO, Once daily Allergies Allergen Reactions ??? Codeine Nausea And Vomiting Social History Tobacco Use ??? Smoking status: Never Smoker ??? Smokeless tobacco: Never Used Substance Use Topics ??? Drug use: Yes Frequency: 1.0 times per week Types: Marijuana Comment: edibles and inhalant VITALS: There were no vitals taken for this visit. EXAM: Gen: NAD CV: regular rate Pulm: unlabored respirations on RA Abd: S/NT/ND, well-healed Pfannenstiel incision Risks of the procedure were reviewed with the patient, including bleeding, infection, injury to surrounding structures including kidney, IVC, major blood vessels, potential need to convert to open operation. She understands these potential risks and wishes to proceed. All questions answered. Consent signed. Proceed with planned procedure. Enmanuel Sandra MD [id number] 11/01/2021 12:30 PM documented in this encounter Miscellaneous Notes Initial Assessments - Luz Maria Garcia RN - 11/02/2021 10:14 AM EDT Office of Care Management Initial Assessment Luz Maria Garcia RN reviewed record and discussed patient with Care Team. Source of Information: Team, bedside nurse, medical record, and Chart Review Introduced self/reviewed role; services accepted. Reason for Hospitalization: 50 y.o. 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 She reports no interval change in her overall health since last seeing Dr. Frederick in clinic on 08/17/21 - please see clinic note for further details Covid Vaccination Status: (Not assessed) Last COVID test: Lab Results Component Value Date [id number] Not Detected 11/01/2021 Past medical History: History reviewed. No pertinent past medical history. Hospitalizations Within the Past 30 Days: no previous admission in last 30 days Current Decision-Making Capacity: Self Advance Care Planning: Attempt Cardiopulmonary Resuscitation - Inpatient <no information> -Advanced Directive: No, need to discuss If AD's have not been completed would be surrogate decision maker per [place] surrogate decision making law. (Only good for 180 days) Any patient receiving care at [facility] must abide by [place] law. The hierarchy for surrogate decision making is: (a) Patient???s spouse, or civil union partner or common law spouse unless there is a divorce proceeding, separation agreement, or restraining order limiting that person???s relationship with the patient. (b) Any adult son or daughter of the patient. (c) Either parent of the patient. (d) Any adult brother or sister of the patient. (e) Any adult grandchild of the patient. (f) Any grandparent of the patient. (g) Any adult aunt, uncle, niece, or nephew of the patient. (h) A close friend of the patient. (i) The agent with financial power of dedicated truck driver or a conservator appointed in accordance with RSA 464-A. (j) The guardian of the patient???s estate. Current Coping/Education/Information Needs: pt has discharge orders in Current Functional Ability: Independent Functional Status Prior to Admission: Independent Prior ADLs & IADLs: Independent with all ADLs & IADLs Home Environment: Others in the home: spouse. Current Living Arrangements: home/apartment/condo. Accessibility Concerns:No accessibility concerns. Current DME: none Home Address confirmed as: [address] [address] Social & Family Supports: All names listed below confirmed with patient as current and correct Extended Emergency Contact Information Primary Emergency Contact: Julien Henderson Address: [address] [place], [place] [id number] [place] [address] Mobile Relation: Spouse Current Care Provided by: self Provides Primary Care For: no one Caregiver if needed: spouse Quality of Family relationships: unable to assess Community Resources being provided currently: none Behavioral Health History: Yes per chart on meds for depression Substance Use/Abuse listed: Social History Tobacco Use Smoking Status Never Smoker Smokeless Tobacco Never Used 0 No problems reported 1-2 Low level 3-5 Moderate level 6-8 Substantial level 9- 10 Severe level 0 to 7 points: Low risk 8 to 15 points: Medium risk 16 to 19 points: High risk 20 to 40 points: Addiction likely Other Pertinent/Service Specific Information: none Health/Prescription Coverage: Primary Insurance: [employer] Payor: [employer] / Plan: [facility] PPO / Product Type: *No Product type* / Secondary Insurance: N/A Prescription Coverage: Yes Preferred Pharmacy: [id number] AT [facility] & [address] [address] [place], [place] - [address] [facility] [address] [facility] [address] [facility] [address] [facility] - [place], [place] - [address] [place] [id number] Status: Patient is a : unable to assess Primary Care Provider: Annette Duncan MD [phone] Patient/Caregiver Goals of Treatment: to get home Potential Needs for Transition of Care: none Agency Referrals: Not Applicable Transportation: no concerns Transportation Anticipated: family or friend will provide Concerns to be Addressed: no discharge needs identified Assessment: Patient is admitted to Surg Onc service for surgery as noted above Plan: Patient with no apparent RNCM/SW needs at this time. No housing, transportation, insurance, resources concerns identified at this time. Supports in place to achieve a safe post-hospital transition. No identified barriers to accessing necessary care and/or follow-up after discharge. A member of the Care Management team will continue to monitor progress, follow for continuity of care and assist with transition of care planning. Office of Care Management Surgery Team Rough And Trueing Machine Operator Luz Maria Pager #[phone] Brief Op Note - Nery Frederick MD - 11/01/2021 7:53 PM EDT Brief Operative Note Patient Name: Lynne Henderson : [id number] MR#: [id number] Case Date: 11/01/2021 Surgeon: Surgeon(s) and Role: * Nery Frederick MD - Primary * Florentino Holly PA - Physician Produce Associate * Enmanuel Sandra MD - Resident Preoperative diagnosis: LEFT ADRENAL NEOPLASM Postoperative diagnosis: LEFT ADRENAL NEOPLASM Procedure(s) (LRB): @ROBOTIC LAPAROSCOPIC ADRENALECTOMY (WRVU 20.73) (Left) MODIFIER ROBOT,DAVINCI XI (N/A) Anesthesia: General Findings: left adrenal nodule contained to the gland. Left adrenal vein small and taken with vessel sealer. Complications: no Intake: Intraprocedure Crystalloid Total Intake Sodium Chloride 0.9% 1000.00 mL lactated ringers infusion 600.00 mL Total Intake 1600 mL Output Blood Loss 50 mL Total Output 50 mL Net Net Volume 1550 mL Transfusion No data found in the last 1 encounters. Output: Estimated Blood Loss: 50 mL Urine Output:: (no urine output recorded) Other Output: (no other output recorded) Drains: None Specimens removed during surgery: None Disposition: awakened from anesthesia, extubated and taken to the recovery room in a stable condition, having suffered no apparent untoward event. Condition: doing well without problems Attestation: Case Date: 11/01/2021 I was present and I participated during the entire procedure (does not need to include opening and closing). (Please see the Surgical Encounter Summary for any Implant and Specimen details pertinent to this patient.) Surgical Infection Prevention Bundle Used? N/A Op Note - Nery Frederick MD - 11/01/2021 4:42 PM EDT [facility] Operative Note Patient Name: Lynne Henderson : [id number] MR#: [id number] Case Date: 11/01/2021 - 11/02/2021 Surgeon: Surgeon(s) and Role: * Nery Frederick MD - Primary * Florentino Holly PA - Physician Produce Associate * Enmanuel Sandra MD - Resident Preoperative diagnosis: LEFT ADRENAL NEOPLASM Postoperative diagnosis: LEFT ADRENAL NEOPLASM Procedure(s) (LRB): @ROBOTIC LAPAROSCOPIC ADRENALECTOMY (WRVU 20.73) (Left) MODIFIER ROBOT,DAVINCI XI (N/A) Findings: Left adrenal nodule contained to the adrenal gland with no extrathyroidal extension Anesthesia: General Estimated Blood Loss: 50 mL Specimens removed during surgery: * No orders in the log * Drains: None Surgical Closure: Primary Closure - skin incision is completely closed without any wires, azucena, drains or other devices Disposition: awakened from anesthesia, extubated and taken to the recovery room in a stable condition, having suffered no apparent untoward event. Condition: doing well without problems (Please see the Surgical Encounter Summary for any Implant and Specimen details pertinent to this patient.) HPI/Surgical Indications: This is a 50-year-old female with a 4.2 cm left adrenal mass who presents for elective resection. Procedure Description: After informed consent the patient was taken back to the operating room and placed supine on the operating table. General anesthesia was induced without complication. The patientwas then positioned in the lateral decubitus position with the left side up and slightly rocked posteriorly. The bed was flexed and an axillary roll was placed. The arms and legs were padded appropriately and the patient positioning was secured. A beanbag was used to help with positioning. The abdomenand left flank was then prepped and draped in standard standard sterile fashion. A timeout was conducted. We began by making a 1 cm incision in the left midclavicular line just below the costal margin.We gained entry into the abdomen using direct Optiview. Once inside the abdomen we insufflated without issue. We inspected for signs of injury upon entry which there were none, we also inspected for signs of pathology and none were found. We then placed 3 additional ports under direct visual guidance,1 in the subxiphoid region 1 just medial and lateral to our midclavicular port. We also placed an patient clerical assistant port 12 mm just inferior to these ports. We then docked the robot and I proceeded to the console. We began by mobilizing the splenic flexure of the colon and dropped the colon inferiorly. We then medialized the spleen taking in down the splenic attachments to the diaphragm and retracting the spl een medially. As we retracted the spleen medially we opened up an avascular plane between the tail of the pancreas and the adrenal gland. We continue to open up this plane until the spleen was completely medialized and we had encountered the stomach in our view. We then dissected circumferentially around the adrenal gland taking the attachments with the vessel sealer. Once we freed up and majority ofthe adrenal gland we directed our attention towards the inferior medial aspect in order to identify the adrenal vein. The adrenal vein was found to be quite small and was taken with the vessel sealer. While dissecting free the inferior portion of the adrenal gland we did disrupt the small renal limb of the adrenal gland which was normal adrenal tissue and not involved in our adrenal tumor. We then remove the gland completely and placed in the specimen bag and removed it from the abdomen. We inspected the adrenal bed and found to it to be hemostatic. We placed a piece of Surgicel snow in the adrenalbed. We then lateralized the spleen in its normal anatomical position. We then undocked the robot weclosed the 12 mm distant point using 0 Vicryl sutures in a running fashion. We then deflated the abdomen and removed all the ports. We injected 0.5% bupivacaine into the port sites. We closed the portswith 4-0 subcuticular Monocryl sutures. We then placed Dermabond on the incisions. The patient was then awakened and extubated. I was scrubbed and present for the entire procedure. All counts were correct at the end of the case x2. Patient did well and was sent to the recovery room in good condition. Surgical Infection Prevention Bundle Used? N/A documented in this encounter Plan of Treatment Not on filedocumented as of this encounter Procedures Procedure Name Priority Date/Time Associated Comments Diagnosis POCT GLUCOSE Routine 11/02/2021 8:20 AM Results f or this EDT procedure are i n the results section. POCT GLUCOSE Routine 11/02/2021 5:19 AM Results f or this EDT procedure are i n the results section. POCT GLUCOSE Routine 11/02/2021 12:54 Results for this AM EDT procedure are i n the results section. POCT GLUCOSE Routine 11/01/2021 10:37 Results for this PM EDT procedure are i n the results section. RAPID COVID-19 PCR Routine 11/01/2021 10:20 Resul ts for this ([facility]) PM EDT procedure are in the results section. POCT GLUCOSE Routine 11/01/2021 9:10 PM Results f or this EDT procedure are i n the results section. POCT GLUCOSE Routine 11/01/2021 8:28 PM Results f or this EDT procedure are i n the results section. POCT GLUCOSE Routine 11/01/2021 7:34 PM Results f or this EDT procedure are i n the results section. SPECIMEN TO PATHOLOGY Routine 11/01/2021 7:20 PM Results for this EDT procedure are i n the results section. SURGICAL PATHOLOGY Routine 11/01/2021 7:19 PM Res ults for this REPORT EDT procedure are i n the results section. POCT GLUCOSE Routine 11/01/2021 6:24 PM Results f or this EDT procedure are i n the results section. MODIFIER ROBOT,DAVINCI Yes 11/01/2021 3:55 PM LEFT ADRENAL XI EDT NEOPLASM @ROBOTIC LAPAROSCOPIC Yes 11/01/2021 3:55 PM LEFT ADRENAL ADRENALECTOMY (VU EDT NEOPLASM 20.73) POCT GLUCOSE Routine 11/01/2021 2:19 PM Results f or this EDT procedure are i n the results section. TYPE AND SCREEN STAT 11/01/2021 12:38 Results for this VALIDITY PM EDT procedure are i n the results section. ABORH RECHECK STATUS STAT 11/01/2021 12:38 Res ults for this PM EDT procedure are i n the results section. HC ANTIBODY STAT 11/01/2021 12:38 DETECTION,CAPTURE-R PM EDT ABO/RH TYPING STAT 11/01/2021 12:38 Results fo r this PM EDT procedure are i n the results section. ANTIBODY SCREEN STAT 11/01/2021 12:38 Results for this PM EDT procedure are i n the results section. documented in this encounter Results (ABNORMAL) POCT Glucose (11/02/2021 8:20 AM EDT) athologist Signature POC Glucose 200 (H) 65 - 199 [facility] mg/dL [facility] Comment: Supplemental ranges: <140 mg/dL before meals <180 mg/dL all other times of the day Specimen Anatomical Collection Method Collection Time Receive d Time (Source) Location / / Volume Laterality Blood 11/02/2021 8:20 AM 8:20 EDT AM EDT Nery Frederick MD POINT OF CARE TEST ORDERABLE S Performing Organization Address City/State/[place] [address] POCT Glucose (11/02/2021 5:19 AM EDT) athologist Signature POC Glucose 118 65 - 199 [place] mg/dL [facility] Comment: Supplemental ranges: <140 mg/dL before meals <180 mg/dL all other times of the day Specimen Anatomical Collection Method Collection Time Receive d Time (Source) Location / / Volume Laterality Blood 11/02/2021 5:19 AM 5:19 EDT AM EDT Nery Frederick MD POINT OF CARE TEST ORDERABLE S Performing Organization Address City/State/ZIP Code Phon e Number [address] POCT Glucose (11/02/2021 12:54 AM EDT) athologist Signature POC Glucose 143 65 - 199 [place] mg/dL [facility] Comment: Supplemental ranges: <140 mg/dL before meals <180 mg/dL all other times of the day Specimen Anatomical Collection Method Collection Time Receive d Time (Source) Location / / Volume Laterality Blood 11/02/2021 12:54 11/02/2021 AM EDT 12:54 AM EDT Nery Frederick MD POINT OF CARE TEST ORDERABLE S Performing Organization Address City/State/ZIP Code Phon e Number [address] POCT Glucose (11/01/2021 10:37 PM EDT) athologist Signature POC Glucose 168 65 - 199 [place] mg/dL [facility] Comment: Supplemental ranges: <140 mg/dL before meals <180 mg/dL all other times of the day Specimen Anatomical Collection Method Collection Time Receive d Time (Source) Location / / Volume Laterality Blood 11/01/2021 10:37 11/01/2021 PM EDT 10:37 PM EDT Nery Frederick MD POINT OF CARE TEST ORDERABLE S Performing Organization Address City/State/[place] [address] COVID-19 PCR (11/01/2021 10:20 PM EDT) [facility] Method Time Signature SARS-CoV-2 Not Detected Not Detected [place] RNA PCR [facility] Comment: This result should be interpreted in com bination with the clinical observations, patient history and epidem iological information. For testing of asymptomatic individuals, assay performa nce characteristics and clinical utility have not been evaluated. Testing for SARS-CoV-2 (Severe acute respiratory syndrome coronavirus 2, form erly known as 2019 novel coronavirus or 2019-nCoV) to aid in the diagnosis of CO VID-19 is performed using the Simplexa COVID-19 Direct Assay by RSB SPINEha loera as authorized by the FDA issued Emergency Use Authorization (EUA). This assay is intended for In-vitro Diagnostic (IVD) use with nasopharyngeal swabs collected from individuals meeting the CDC criteria for testing. assay is performed based on the instructions for use and additional guid ance provided by the FDA. Testing is performed in the Microbiology Laboratory within the Department of Pathology and Laboratory Medicine at [facility], certified under the Clinical Laboratory Improvement Amendmen ts of 1988 (CLIA), 42 U.S.C. section 263a, to perform high complexity tests. Assay performance has been verified according to clinical laboratory regulat ory requirements. Test results are provided above. A resul t of Not Detected indicates that the viral RNA target is not present but does not preclude SARS-CoV-2 infection. False negative results may occur if a sp ecimen is improperly collected, transported or handled; if amplification inhibitors are present; or if inadequate numbers of viral particles ar e present in the specimen. A result of Detected suggests a current or recent infection and the patient is presumed to be infected. Positive and negative pr edictive values for this test are highly dependent on disease prevalence. A result of Invalid indicates the inability to conclusively determine the presence or absence of SARS-CoV-2 RNA in the sample which can be due to a vari ety of factors. Recollection is recommended in the case of an invalid re sult. CDC COVID-19 criteria for testing on hum an specimens and clinical management guidance information are available at e CDC Coronavirus Disease 2019 (COVID-19) webpage under Information fo r Healthcare Professionals (https://www.cdc.gov/coronavirus/2019-nc ov/hcp/index.html). Additional information about this and ot her EUA tests can be found in provider and patient fact sheets at the following FDA website: https://www.fda.gov/medical-devices/zbitexpqwng-dejxwtm-2419-qhgoi-66-luufvjubi- lbf-xwonsnkdtwiqyb-qnejtzk-devices/kfnsg-hxfesrosudf-bmyc SARS-CoV-[address] MACHINE OPERATOR Swab [facility] Specimen (Source) Anatomical Collection Method Collection Time Re ceived Time Location / / Volume Laterality Nasopharyngeal Swab 11/01/2021 10:20 04/0 08/2021 PM EDT 12:09 AM EDT Comment: Symptoms->Surveillance Resulting Agency Comment Spec In Lab Nery Frederick MD MICROBIOLOGY - GENERAL ORDER MELISSA Performing Organization Address City/State/ZIP Code Phon e Number [address] POCT Glucose (11/01/2021 9:10 PM EDT) athologist Signature POC Glucose 178 65 - 199 [facility] Comment: Supplemental ranges: <140 mg/dL before meals <180 mg/dL all other times of the day Specimen Anatomical Collection Method Collection Time Receive d Time (Source) Location / / Volume Laterality Blood 11/01/2021 9:10 PM 2 9:10 EDT PM EDT Nery Frederick MD POINT OF CARE TEST ORDERABLE S Performing Organization Address City/[facility]/[place] [address] (ABNORMAL) POCT Glucose (11/01/2021 8:28 PM EDT) athologist Signature POC Glucose 206 (H) 65 - 199 [facility] Comment: Supplemental ranges: <140 mg/dL before meals <180 mg/dL all other times of the day Specimen Anatomical Collection Method Collection Time Receive d Time (Source) Location / / Volume Laterality Blood 11/01/2021 8:28 PM 2 8:28 EDT PM EDT Nery Frederick MD POINT OF CARE TEST ORDERABLE S Performing Organization Address City/[facility]/[place] [address] (ABNORMAL) POCT Glucose (11/01/2021 7:34 PM EDT) P athologist Signature POC Glucose 218 (H) 65 - 199 [facility] Comment: Supplemental ranges: <140 mg/dL before meals <180 mg/dL all other times of the day Specimen Anatomical Collection Method Collection Time Receive d Time (Source) Location / / Volume Laterality Blood 11/01/2021 7:34 PM 2 7:34 EDT PM EDT Nery Frederick MD POINT OF CARE TEST ORDERABLE S Performing Organization Address City/[facility]/[place] [address] Specimen to Pathology (11/01/2021 7:20 PM EDT) Specimen Anatomical Collection Method Collection Time Receive d Time (Source) Location / / Volume Laterality AP Specimen 11/01/2021 7:20 PM 2 7:20 EDT PM EDT Narrative [facility] - 11/01/2021 7:20 PM EDT Specimen requisition ordered. ??Separate Pathology report to follow Nery Frederick MD PATHOLOGY/CYTOLOGY ORDERABLE S Performing Organization Address City/State/[place] [address] Surgical Pathology Report (11/01/2021 7:19 PM EDT) Component Value Ref Test Analysis Performed At Patholo gist Range Method Time Signature Surgical [id number] ? Location: PACU; [facility]; A [facility] Report The signing pathologist has (i) examined the relevant preparation(s) for the [facility] specimen(s) and (ii) rendered or confirmed the diagnosis(es) . HOSPITAL LABORATORY . ?Surgic al Pathology DIAGNOSIS A - ??Left adrenal gland , excision: ??- Adrenal cortical adenoma, 3.5 cm. Electronically signed by: ?Rose Araya MD Verified: ??11/09/2021 16:06 ??Pathologist Performed at: ??-[facility] Dept. of Pathology, [facility], [place], [place] DISCUSSION The clinical setting of a non-functional adrenal corti crystal neoplasm is noted. Histologically the tumor is composed of predominantly clear cells with nested architecture. Focal hyalini zation with calcification is seen. No tumor necrosis, significant mitotic activit y, pleomorphism, or invasion is identified. The tumor abuts the adrenal capsule a nd comes to 4 mm from the nearest soft tissue margin. SPECIMEN(S) SUBMITTED A - ??Left adrenal gland , excision CLINICAL INFORMATION Left adrenal neoplasm SPECIMEN PROCESSING A - Labeled/Fixative: Left adrenal gland, fresh. Quantity/Size: Single, 10.0 x 3.5 x 2.3 cm, 35.4g (overall). Tissue Description: Intact, lobulated olzsse-igk-ofqzrh adrenal gland and attached fat, which is partially disrupted over an eccentric, 3.5 x 3.0 x 2.0 cm well- circumscribed rubbery nodule having a predominantly yellow cut surface with central, irregular brown areas. The nodule abuts the adrenal capsule, and measures 0.4 cm from the nearest soft tissue margin. The adrenal gland measures 5 .7 x 2.0-3.5 x 0.3-1.9 cm, with peripheral yellow-gold cortex and brown medulla. Sections/Processing: The capsule is inked black. Casket Liner sections in 8 cassettes as follows: ?A1-A4: ??nodule ?A5: ??Nodule and adjacent adrenal gland ?A6-A8: ??adjacent adrenal gland (A6/A7 = one section, bisected) ??shb Specimen (Source) Anatomical Collection Method Collection Time Re ceived Time Location / / Volume Laterality 11/01/2021 7:19 PM EDT Nery Frederick MD PATHOLOGY/CYTOLOGY ORDERABLE S Performing Organization Address City/State/[place] [address] (ABNORMAL) POCT Glucose (11/01/2021 6:24 PM EDT) athologist Signature POC Glucose 238 (H) 65 - 199 [facility] Comment: Supplemental ranges: <140 mg/dL before meals <180 mg/dL all other times of the day Specimen Anatomical Collection Method Collection Time Receive d Time (Source) Location / / Volume Laterality Blood 11/01/2021 6:24 PM 2 6:24 EDT PM EDT Nery Frederick MD POINT OF CARE TEST ORDERABLE S Performing Organization Address City/State/ZIP Code Phon e Number [address] POCT Glucose (11/01/2021 2:19 PM EDT) P athologist Signature POC Glucose 108 65 [phone] 199 [facility] mg/dL [facility] LABORATORY Comment: Supplemental ranges: <140 mg/dL before meals <180 mg/dL all other times of the day Specimen Anatomical Collection Method Collection Time Receive d Time (Source) Location / / Volume Laterality Blood 11/01/2021 2:19 PM 2 2:19 EDT PM EDT Nery Frederick MD POINT OF CARE TEST ORDERABLE S Performing Organization Address City/State/[place] [address] Type and Screen Validity (11/01/2021 12:38 PM EDT) [facility] Method Time Signature T&S only valid [facility] DANITZA [facility] LABORATORY Comment: This Type and Screen result is only valid at the [facility] Specimen Anatomical Collection Method Collection Time Receive d Time (Source) Location / / Volume Laterality Blood 11/01/2021 12:38 11/01/2021 PM EDT 12:40 PM EDT Resulting Agency Comment Spec In Lab Nery Frederick MD BLOOD BANK ORDERABLES Performing Organization Address City/State/ZIP Code Phon e Number [address] ABORH Recheck Status (11/01/2021 12:38 PM EDT) [facility] Method Time Signature ABORH Recheck Order Placed [facility] LABORATORY ABORH Type Complete [facility] LABORATORY Specimen Anatomical Collection Method Collection Time Receive d Time (Source) Location / / Volume Laterality Blood 11/01/2021 12:38 11/01/2021 PM EDT 12:40 PM EDT Resulting Agency Comment Spec In Lab Nery Frederick MD BLOOD BANK ORDERABLES Performing Organization Address City/[facility]/[place] [address] Antibody screen (11/01/2021 12:38 PM EDT) Patholo gist Method Time Signature Ab Screen Negative [facility] LABORATORY Expires at 11/04/2021 [facility] [id number] on: [facility] LABORATORY Specimen Anatomical Collection Method Collection Time Receive d Time (Source) Location / / Volume Laterality Blood 11/01/2021 12:38 11/01/2021 PM EDT 12:40 PM EDT Resulting Agency Comment Spec In Lab Nery Frederick MD BLOOD BANK ORDERABLES Performing Organization Address City/[facility]/[place] [address] ABO/Rh Typing (11/01/2021 12:38 PM EDT) P athologist Signature ABORh Type O Pos [facility] LABORATORY Specimen Anatomical Collection Method Collection Time Receive d Time (Source) Location / / Volume Laterality Blood 11/01/2021 12:38 11/01/2021 PM EDT 12:40 PM EDT Resulting Agency Comment Spec In Lab Nery Frederick MD BLOOD BANK ORDERABLES Performing Organization Address [facility]/ZIP [facility] [place] [address] documented in this encounter Visit Diagnoses Diagnosis 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 Personal history of surgery to other org ans documented in this encounter Admitting Diagnoses Diagnosis H/O total adrenalectomy Personal history of surgery to other org ans documented in this encounter Administered Medications Inactive Administered Medications - up to 3 most recent administrations Medication Order MAR Action Action Date Dose Rate Site acetaminophen (Tylenol) tablet Given 11/01/2021 2:33 PM EDT 1,00 0 mg 1,000 mg 1,000 mg, Oral, ONCE, 1 dose, On Enriqueta 11/01/21 at 1415, Administer with SIP of H2O only., Day of Surgery (Day of Procedure), Routine acetaminophen (Tylenol) tablet 975 mg Given 11/02/2021 6:43 AM EDT 975 mg 975 mg, Oral, EVERY 6 HOURS PRN, Starting on Enriqeuta 11/01/21 at 2035, Until Fri11/02/21 at 1405, Pain, Maximum dose of acetaminophen is 4000 mg from all sources in 24 hours. When ordered for pain, acetaminophen should be given even when other ordered pain medications are indicated. , Routine Given 11/01/2021 10:59 PM EDT 975 mg dextrose 10% infusion 250 mL, at 1,000 mL/hr, Intravenous, CURT RY 30 MIN PRN, Starting on Enriqueta 11/01/21 at 2036, Until Fri11/02/21 at 1405, For B G 50-70 mg/dL: Oral treatment preferred: If able to drink, give 120 mL Juice or Regu lar (not diet) soda OR If NPO, give 15 gram glucose 40% oral gel massaged into buccal mucosa OR if unconscious or uncooperative, give 25 gram (250 mL) Dex trose 10% IV over 15 minutes per protocol OR, if no IV access, 1 mg Glucagon IM. * * For BG less than 50 mg/dL: Oral treatment preferred: If able to drink, give 240 mL Juice or Regu lar (not diet) soda OR If NPO, give 30 gram glucose 40% oral gel m assaged in buccal mucosa OR if unconscious or uncooperative, give 25 gram (250 mL) Dextrose 10% I V over 15 minutes per protocol OR, if no IV access, 1 mg Glucagon IM. Rech lionel BG in 30 minutes. May repeat juice/soda, gel, dextrose or gluc agon once per episode. For persistent hypoglycemia, consider longer-acting treatment for the duration of the active insulin. glucagon (Glucagen) (1 mg/mL) injection solution 1 mg 1 mg, Intramuscular, EVERY 30 MIN PRN, S tarting on Enriqueta 11/01/21 at 2036, Until Fri11/02/21 at 1405, Low blood sugar, For BG 50-70 mg/dL: Oral treatment preferred: If able to drink, give 120 mL Juice or R egular (not diet) soda OR If NPO, give 15 gram glucose 40% oral gel massaged into buccal mucosa OR if unconscious or uncooperative, give 25 gram (250 mL) Dex trose 10% IV over 15 minutes per protocol OR, if no IV access, 1 mg Glucagon IM. * * For BG less than 50 mg/dL: Oral treatment preferred: If able to drink, give 240 mL Juice or Regu lar (not diet) soda OR If NPO, give 30 gram glucose 40% oral gel m assaged in buccal mucosa OR if unconscious or uncooperative, give 25 gram (250 mL) Dextrose 10% I V over 15 minutes per protocol OR, if no IV access, 1 mg Glucagon IM. Rech lionel BG in 30 minutes. May repeat juice/soda, gel, dextrose or gluc agon once per episode. For persistent hypoglycemia, consider longer-acting treatment for the duration of the active insulin., Routine glucose (GLUTOSE) 40% oral geL 15-30 g, Buccal, EVERY 30 MIN PRN, Starting on 10/04 at 2036, Until Fri11/02/21 at 1405, Low blood sugar, For BG 50-70 mg/dL: Oral treatment preferred: If able to drink, give 120 mL Juice or R egular (not diet) soda OR If NPO, give 15 gram glucose 40% oral gel massaged into buccal mucosa OR if unconscious or uncooperative, give 25 gram (250 mL) Dex trose 10% IV over 15 minutes per protocol OR, if no IV access, 1 mg Glucagon IM. * * For BG less than 50 mg/dL: Oral treatment preferred: If able to drink, give 240 mL Juice or Regu lar (not diet) soda OR If NPO, give 30 gram glucose 40% oral gel m assaged in buccal mucosa OR if unconscious or uncooperative, give 25 gram (250 mL) Dextrose 10% I V over 15 minutes per protocol OR, if no IV access, 1 mg Glucagon IM. Rech lionel BG in 30 minutes. May repeat juice/soda, gel, dextrose or gluc agon once per episode. For persistent hypoglycemia, consider longer-acting treatment for the duration of the active insulin. 1 tube contains 15 grams of glucose (net weig ht of tube = 37.5 grams., Routine heparin (porcine) (5,000 Given 11/01/2021 2:33 PM 5,000 Units Left Lower Quadrant units/1 mL) subcutaneous EDT injection 5,000 Units 5,000 Units, Subcutaneous, MORTGAGE BROKER TO O.R., 1 dose, On Fri11/01/21 at 1415, Routine HYDROmorphone (Dilaudid) (2 mg/mL) multi-dose Given 9:32 PM EDT 0.2 mg injection solution 0.2 mg 0.2 mg, Intravenous, EVERY 10 MIN PRN, Starting on Fri11/01/21 at 2022, Until Fri11/01/21 at 2314, Pain, For Mild to Moderate Pain (1-5 out of 10), Hold for respiratory rate less than 10 per minute. Maximum dose 3 mg over one hour including administrations in the OR. If multiple pain medications are ordered, start with HYDROmorphone or morphine and use fentaNYL for breakthrough pain, PACU Recovery, Routine HYDROmorphone (Dilaudid) tablet 2 mg Given 11/02/2021 10:36 AM EDT 2 mg 2 mg, Oral, EVERY 4 HOURS PRN, Starting on Fri11/02/21 at 0649, Until Fri11/02/21 at 1405, Pain, Routine Given 11/02/2021 6:53 AM EDT 2 mg ibuprofen (Advil) tablet 600 mg Given 11/02/2021 6:53 AM EDT 600 mg 600 mg, Oral, EVERY 6 HOURS PRN, Starting on Fri11/02/21 at 0650, Until Fri11/02/21 at 1405, Pain, Administer orally with milk or food to minimize GI irritation. Maximum dose of 3,200 mg from all sources in 24 hours, Routine insulin lispro (HumaLOG;Admelog) (100 Given 11/02/2021 8:29 AM E DT 1 Units unit/mL) subcutaneous injection vial 1-4 Units 1-4 Units, Subcutaneous, EVERY 4 HOURS SCHEDULED, First dose on Fri11/01/21 at 2100, Until Discontinued, CORRECTION BOLUS [1-4 Units] Sensitive Sliding Scale (BG in mg/dL): Correction factor 40 (1 unit of insulin is expected to drop the glucose 40 mg/dL) BG 160 - 200 Give 1 unit BG 201 - 240 Give 2 units BG 241 - 280 Give 3 units BG greater than 280, give 4 units and recheck BG in 2 hours. - If recheck BG is LESS than 280, give no insulin and resume schedule - If recheck BG is GREATER than 280, give 4 units and repeat BG in 2 hours (no more than 3 times) & call for new insulin orders. DO NOT hold if NPO, unless specifically directed to do so by written order. Per Blood Glucose Monitoring Policy, re-check a BG of > 240 mg/dL in 2 hours., Routine Given 11/01/2021 9:11 PM EDT 1 Units Right Arm lactated ringers infusion Restarted 11/01/2021 3:56 PM EDT 1,000 mL, at 100 mL/hr, Intravenous, CONTINUOUS, Starting on Enriqueta 11/01/21 at 1415, Until Fri11/01/21 at 2314, Day of Surgery (Day of Procedure) New Bag 11/01/2021 2:28 PM EDT 1,000 mLs 100 mL/hr lidocaine (Xylocaine) 1% (10 mg/mL) injection 3 Given 11/01/2021 2:26 PM EDT 3 mg mg 3 mg (0.3 mL), Subcutaneous, ONCE PRN, 1 dose, Starting on Fri11/01/21 at 1359, Until Fri11/01/21 at 1426, for discomfort with PIV insertion, Day of Surgery (Day of Procedure), Routine lidocaine (Xylocaine) 1% (10 mg/mL) inje ction 3 mg 3 mg (0.3 mL), Subcutaneous, ONCE PRN, 1 dose, Startin g on Fri11/01/21 at 2208, Until Fri11/02/21 at 1405, for discomfort with PIV inse rtion, Routine ondansetron (pf) (Zofran) (2 mg/mL) injection 4 Given 11/01/2021 8:47 PM EDT 4 mg mg 4 mg, Intravenous, EVERY 30 MIN PRN, 2 doses, Starting on Enriqueta 11/01/21 at 2022, Until Enriqueta 11/01/21 at 2314, Nausea, Maximum total dose of 8 mg (including OR administration). If multiple antiemetics ordered, use ondansetron first and if ineffective use prochlorperazine second and if ineffective use promethazine, PACU Recovery ondansetron (Zofran) tablet 4-8 mg 4-8 mg, Oral, EVERY 8 HOURS PRN, Startin g on Enriqueta 11/01/21 at 2211, Until Fri11/02/21 at 1405, Nausea, Vomiting, If multiple antiemetics are ordered, use ondansetron first. PO Preferred. If patient unable to take PO, may give IV if ordered. Start with 4mg and if ineffective in 45 minutes, give an add itional 4mg. If unable to take PO, may give IV., Routine prochlorperazine (Compazine) (5 mg/mL) Given 11/01/2021 10:10 PM EDT 5 mg injection 5 mg 5 mg, Intravenous, EVERY 30 MIN PRN, 2 doses, Starting on Enriqueta 11/01/21 at 2021, Until Enriqueta 11/01/21 at 2210, Nausea, Maximum total dose of 10 mg (including OR administration). If multiple antiemetics ordered, use ondansetron first and if ineffective use prochlorperazine second and if ineffective use promethazine, PACU Recovery, Routine Given 11/01/2021 9:26 PM EDT 5 mg sodium chloride 0.9 % (flush) (BD PosiFlush Given 11/02/2021 8:3 0 AM EDT 5 mLs Normal Saline 0.9) flush 5 mL 5 mL, Intravenous, 2 TIMES DAILY, First dose on Enriqueta 11/01/21 at 2230, Until Discontinued, Routine Given 11/01/2021 10:55 PM EDT 5 mLs sodium chloride 0.9 % (flush) (BD PosiFl ush Normal Saline 0.9) flush 5-20 mL 5-20 mL, Intravenous, EVERY 1 MIN PRN, S tarting on Enriqueta 11/01/21 at 2208, Until Fri11/02/21 at 1405, flush, Flush pertains to all indwelling lines. Flush per protocol found in the job aid using the link prov ided on this medication record., Routine documented in this encounter Active and Recently Administered Medications Times are shown in EDT. Scheduled Medication Order 10/31/2021 11/01/2021 11/02/2021 acetaminophen (Tylenol) tablet 1,000 mg (COMPLETED) 143 (Given - Provider: Africa Hassan RN) 1,000 mg, Oral, ONCE, 1 dose, On [facility] 10/04 08/25 at 1415, Administer with SIP of H2O only., Day of Surgery (Day of Procedure), Routine ceFAZolin (Ancef) 2 g in dextrose 5% 100 mL infusion (COMPLE DENNISE) 161 (Given - Provider: Eugenia Mcclure CRNA) 2 g, Intravenous, MORTGAGE BROKER TO O.R., 1 dos e, On Enriqueta 11/01/21 at 1415, Administer over 30 Minutes, Indication for (Active or Suspected): Prophylaxis heparin (porcine) (5,000 units/1 mL) sub cutaneous injection 5,000 Units (COMPLETED) 143 (Given - Provider: Africa sosa RN) 5,000 Units, Subcutaneous, MORTGAGE BROKER TO O. R., 1 dose, On Enriqueta 11/01/21 at 1415, Routine insulin lispro (HumaLOG;Admelog) (100 un it/mL) subcutaneous injection vial 1-4 Units(Linked Group 1) 2110 (Given - Provider: Rafaela Gandhi RN - Comment: glucose 178) 0100 (Not Given - Provider: Elfego Khalil RN - Reason: Order parameters not met - Comment: BG [phone] (Not Given - Provider: Elfego Khalil RN - Reason: Order parameters not met - Comment: BG [phone] (Given - Provider: Nadja Waterman RN) 1-4 Units, Subcutaneous, EVERY 4 HOURS S CHEDULED, First dose on Enriqueta 11/01/21 at 2100, Until Discontinued, CORRECTION BOLUS [1-4 Units] Sensitive Sliding Scale (BG in mg/dL): Correction factor 40 (1 u nit of insulin is expected to drop the g lucose 40 mg/dL) BG 160 - 200 Give 1 unit BG 201 - 240 Give 2 units BG 241 - 280 Give 3 units BG greater than 280, give 4 units and recheck BG in 2 hours. - If re check BG is LESS than 280, give no insul in and resume schedule - If recheck BG is GREATER than 280, give 4 units and repeat BG in 2 hours (no more than 3 times) & call for new insulin orders. DO NOT hold if NPO, unless specifically direct ed to do so by written order. Per Blood Glucose Monitoring Policy, re-check a BG of > 240 mg/dL in 2 hours., Routine sodium chloride 0.9 % (flush) (BD PosiFlush Normal Saline 0. 9) flush 5 mL 2255 (Given - Provider: Ayah Gandhi RN) 0830 (Given - Provider: Nadja Waterman RN) 5 mL, Intravenous, 2 TIMES DAILY, First dose on Enriqueta 11/01/21 at 2230, Until Discontinued, Routine Continuous Medication Order 10/31/2021 11/01/2021 11/02/2021 lactated ringers infusion (CANCELED) 142 8 (New Bag - Provider: Africa Hassan RN)1555 (Paused - Provider: Eugenia Mcclure CRNA - Comment: Switch to gravity)1556 (Restarted - Provider: Eugenia Mcclure CRNA)1729 (Anesthesia Volume Adjustment - Provider: Eugenia Mcclure CRNA) 1,000 mL, at 100 mL/hr, Intravenous, CON TINUOUS, Starting on Enriqueta 11/01/21 at 1415, Until Enriqueta 11/01/21 at 2314, Day of Surgery (Day of Procedure) 1945 (Anesthesia Volume Adjustment - Provider: Ange Pickard CRNA) PRN Medication Order 10/31/2021 11/01/2021 11/02/2021 acetaminophen (Tylenol) tablet 975 mg 22 59 (Given - Provider: Ayah Gandhi RN) 0643 (Given - Provider: Elfego Khalil RN ) 975 mg, Oral, EVERY 6 HOURS PRN, Startin g on Enriqueta 11/01/21 at 2035, Until Fri11/02/21 at 1405, Pain, Maximum dose of acetaminophen is 4000 mg from all sources in 24 hours. When ordered for pain, acetaminop hen should be given even when other orde red pain medications are indicated. , Routine BUpivacaine (pf) (Marcaine) (2.5 mg/mL) 0.25% injection (CAN CELED) 1999 (Given - Provider: Nery Frederick MD) ONCE PRN, Starting on Enriqueta 11/01/21 at 200 0, Until Fri11/02/21 at 1405, Intra- Operative (Intra-Procedure), Routine dextrose 10% infusion(Linked Group 2) 250 mL, at 1,000 mL/hr, Intravenous, CURT RY 30 MIN PRN, Starting on Enriqueta 11/01/21 at 2036, Until Fri11/02/21 at 1405, For BG 50-70 mg/dL: Oral treatment preferred: If able to drink, give 120 mL Juice or Regular (not diet) soda OR If NPO, give 15 gram glucose 40% oral gel massaged into buccal mucosa OR if unconscious or uncooperative, give 25 gram (250 mL) Dextrose 10% IV over 15 minutes per protocol OR , if no IV access, 1 mg Glucagon IM. For BG less than 50 mg/dL: Oral treatment preferred: If able to drink, give 240 mL Juice or Regular (not diet) soda OR If NPO, give 30 gram glucose 40% oral gel m assaged in buccal mucosa OR if unconscio us or uncooperative, give 25 gram (250 mL) Dextrose 10% IV over 15 minutes per protocol OR, if no IV access, 1 mg Glucagon IM. Recheck BG in 30 minutes. May rep eat juice/soda, gel, dextrose or glucago n once per episode. For persistent hypoglycemia, consider longer-acting treatment for the duration of the active insulin. glucagon (Glucagen) (1 mg/mL) injection solution 1 mg(Linked Almaz up 2) 1 mg, Intramuscular, EVERY 30 MIN PRN, S tarting on Enriqueta 11/01/21 at 2036, Until Fri11/02/21 at 1405, Low blood sugar, For BG 50-70 mg/dL: Oral treatment preferred: If able to drink, give 120 mL Juice or Regular (not diet) soda OR If NPO, give 15 gram glucose 40% oral gel massaged into buccal mucosa OR if unconscious or uncooperative, give 25 gram (250 mL) Dextrose 10% IV over 15 minutes per protocol O R, if no IV access, 1 mg Glucagon IM. For BG less than 50 mg/dL: Oral treatment preferred: If able to drink, give 240 mL Juice or Regular (not diet) soda OR If NPO, give 30 gram glucose 40% oral gel massaged in buccal mucosa OR if unconsci ous or uncooperative, give 25 gram (250 mL) Dextrose 10% IV over 15 minutes per protocol OR, if no IV access, 1 mg Glucagon IM. Recheck BG in 30 minutes. May re peat juice/soda, gel, dextrose or glucag on once per episode. For persistent hypoglycemia, consider longer-acting treatment for the duration of the active insulin., Routine glucose (GLUTOSE) 40% oral geL(Linked Group 2) 15-30 g, Buccal, EVERY 30 MIN PRN, Start ing on Fri11/01/21 at 2035, Until Fri11/02/21 at 1405, Low blood sugar, For BG 50-70 mg/dL: Oral treatment preferred: If able to drink, give 120 mL Juice or Reg ular (not diet) soda OR If NPO, give 15 gram glucose 40% oral gel massaged into buccal mucosa OR if unconscious or uncooperative, give 25 gram (250 mL) Dextrose 10% IV over 15 minutes per protocol OR, i f no IV access, 1 mg Glucagon IM. For BG less than 50 mg/dL: Oral treatment preferred: If able to drink, give 240 mL Juice or Regular (not diet) soda OR If NPO, give 30 gram glucose 40% oral gel mass aged in buccal mucosa OR if unconscious or uncooperative, give 25 gram (250 mL) Dextrose 10% IV over 15 minutes per protocol OR, if no IV access, 1 mg Glucagon IM. Recheck BG in 30 minutes. May repeat juice/soda, gel, dextrose or glucagon o nce per episode. For persistent hypoglycemia, consider longer-acting treatment for the duration of the active insulin. 1 tube contains 15 grams of glucose (net weight of tube = 37.5 grams., Routine HYDROmorphone (Dilaudid) (2 mg/mL) multi -dose injection solution 0.2 mg (CANCELED) 2131 (Given - Provider: Ayah Gandhi RN) 0.2 mg, Intravenous, EVERY 10 MIN PRN, S tarting on Fri11/01/21 at 2021, Until Fri11/01/21 at 2314, Pain, For Mild to Moderate Pain (1-5 out of 10), Hold for respiratory rate less than 10 per minute. Max imum dose 3 mg over one hour including a dministrations in the OR. If multiple pain medications are ordered, start with HYDROmorphone or morphine and use fentaNYL for breakthrough pain, PACU Recovery, Routine HYDROmorphone (Dilaudid) tablet 2 mg 0653 (Given - Provider: Elfego Khalil, CONNIE)1036 (Given - Provider: Nadja Waterman RN) 2 mg, Oral, EVERY 4 HOURS PRN, Starting on Fri11/02/21 at 0649, Until Fri11/02/21 at 1405, Pain, Routine ibuprofen (Advil) tablet 600 mg 0653 (Given - Provider: Elfego Khalil RN) 600 mg, Oral, EVERY 6 HOURS PRN, Startin g on Fri11/02/21 at 0650, Until Fri11/02/21 at 1405, Pain, Administer orally with milk or food to minimize GI irritation. Maximum dose of 3,200 mg from all sources in 24 hours, Routine lidocaine (Xylocaine) 1% (10 mg/mL) injection 3 mg (COMPLETE D) 1425 (Given - Provider: Africa Hassan RN) 3 mg (0.3 mL), Subcutaneous, ONCE PRN, 1 dose, Starting on Enriqueta 11/01/21 at 1359, Until Enriqueta 11/01/21 at 1426, for discomfort with PIV insertion, Day of Surgery (Day of Procedure), Routine lidocaine (Xylocaine) 1% (10 mg/mL) injection 3 mg 3 mg (0.3 mL), Subcutaneous, ONCE PRN, 1 dose, Starting on Fri11/01/21 at 2208, Until Fri11/02/21 at 1405, for discomfort with PIV insertion, Routine ondansetron (pf) (Zofran) (2 mg/mL) injection 4 mg (CANCELED ) 2046 (Given - Provider: Ayah Gandhi RN) 4 mg, Intravenous, EVERY 30 MIN PRN, 2 d oses, Starting on Enriqueta 11/01/21 at 202, Until Enriqueta 11/01/21 at 2314, Nausea, Maximum total dose of 8 mg (including OR administration). If multiple antiemetics orde red, use ondansetron first and if ineffe ctive use prochlorperazine second and if ineffective use promethazine, PACU Recovery ondansetron (Zofran) tablet 4-8 mg 4-8 mg, Oral, EVERY 8 HOURS PRN, Startin g on Enriqueta 11/01/21 at 2211, Until Fri11/02/21 at 1405, Nausea, Vomiting, If multiple antiemetics are ordered, use ondansetron first. PO Preferred. If patient tien ble to take PO, may give IV if ordered. Start with 4mg and if ineffective in 45 minutes, give an additional 4mg. If unable to take PO, may give IV., Routine prochlorperazine (Compazine) (5 mg/mL) injection 5 mg (COMPL ETED) 2125 (Given - Provider: Ayah Gandhi, RN)2209 (Given - Provider: Ayah Gandhi RN) 5 mg, Intravenous, EVERY 30 MIN PRN, 2 d oses, Starting on Enriqueta 11/01/21 at 2021, Until Discontinued, Nausea, Maximum total dose of 10 mg (including OR administration). If multiple antiemetics ordered, u se ondansetron first and if ineffective use prochlorperazine second and if ineffective use promethazine, PACU Recovery, Routine sodium chloride 0.9 % (flush) (BD PosiFlush Normal Saline 0.9) f lush 5-20 mL 5-20 mL, Intravenous, EVERY 1 MIN PRN, S tarting on Enriqueta 11/01/21 at 2208, Until Fri11/02/21 at 1405, flush, Flush pertains to all indwelling lines. Flush per protocol found in the job aid using the link provided on this medication record., Routine Linked Groups Order Group 1: POCT Fingerstick Glucose (CANCELED) Routine, EVERY 4 HOURS, First occurrence on Enriqueta 11/01/21 at 204, Until Specified
Consider choosing EVERY 4 HOURS as frequency for: - Type 1 Diabetes - At least 24 hours after coming off an insu annette drip - At least 24 hours after admis oralia for DKA - Hypoglycemia unawareness - Patients who are otherwise unstable Select the same frequency for the correction bolus insulin order And insulin lispro (HumaLOG;Admelog) (100 unit/mL) subcutaneous injection vial 1-4 UnitsJump to med 1-4 Units, Subcutaneous, EVERY 4 HOURS S CHEDULED, First dose on Enriqueta 11/01/21 at 2100, Until Discontinued
CORRECTION BOLUS [1-4 Units] Sensitive Sliding Scale (BG in mg/dL): Correcti on factor 40 (1 unit of insulin is expec dennise to drop the glucose 40 mg/dL) BG 160 - 200 Give 1 unit BG 201 - 240 Give 2 units BG 241 - 280 Give 3 units BG greater than 280, give 4 units and re check BG in 2 hours. - If recheck BG is LESS than 280, give no insulin and resume schedule - If recheck BG is GREATER than 280, give 4 units an d repeat BG in 2 hours (no more than 3 t imes) & call for new insulin orders. DO NOT hold if NPO, unless specifically directed to do so by written order.&am p;nbsp; Per Blood Gluco se Monitoring Policy, re-check a BG of > 240 mg/dL in 2 hours.
Routine Group 2: glucose (GLUTOSE) 40% oral geLJump to med 15-30 g, Buccal, EVERY 30 MIN PRN, Start ing on Fri11/01/21 at 2036, Until Fri11/02/21 at 1405, Low blood sugar
For BG 50-70 mg/dL: Oral treatment preferred: If able to drink, give 12 0 mL Juice or Regular (not diet) soda OR If NPO, give 15 gram glucose 40% oral gel massaged into buccal mucosa OR if unconscious or uncooperative, give 25 gram (250 mL) Dextrose 10% IV over 15 minutes per protocol OR, i f no IV access, 1 mg Glucagon IM. For BG less than 50 mg/dL: Oral treatment preferred: If able to drink, give 240 mL Juice or Regular (no t diet) soda OR If NPO, give 30 gram&nbs p;glucose 40% oral gel massaged in buccal mucosa OR if unconscious or uncooperative, give 25 gram (250 mL) Dextrose 10% IV over 15 minutes per&nb sp;protocol OR, if no IV access, 1 mg Gl ucagon IM. Recheck BG in 30 minutes. May repeat juice/soda, gel, dextrose or glucagon once per episode. For persistent h ypoglycemia, consider longer-acting chas tment for the duration of the active insulin. 1 tube contains 15 grams of glucose (net weight of tube = 37.5 grams.
Routine Or dextrose 10% infusionJump to med 250 mL, at 1,000 mL/hr, Intravenous, CURT RY 30 MIN PRN, Starting on [place] 11/01/21 at 2036, Until Fri11/02/21 at 1405
For BG 50-70 mg/dL: Oral treatment preferred: If able to drink, give&nbsp ;120 mL Juice or Regular (not diet) soda OR If NPO, give 15 gram glucose 40% oral gel massaged into buccal mucosa OR if unconscious or uncooperative, give 25 gram (250 mL) Dextrose 10% IV over 15 minutes per protocol OR , if no IV access, 1 mg Glucagon IM. For BG less than 50 mg/dL: Oral treatment preferred: If able to drink, give 240 mL Juice or Regular (not diet) soda OR If NPO, give 30 gram& nbsp;glucose 40% oral gel massaged in buccal mucosa OR if unconscious or uncooperative, give 25 gram (250 mL) Dextrose 10% IV over 15 minutes per&amp ;nbsp;protocol OR, if no IV access, 1 mg Glucagon IM. Recheck BG in 30 minutes. May repeat juice/soda, gel, dextrose or glucagon once per episode. For persisten t hypoglycemia, consider longer-acting t reatment for the duration of the active insulin.
Or glucagon (Glucagen) (1 mg/mL) injection solution 1 mgJump to med 1 mg, Intramuscular, EVERY 30 MIN PRN, S tarting on [place] 11/01/21 at 2036, Until 11/02/21 at 1405, Low blood sugar
For BG 50-70 mg/dL: Oral treatment preferred: If able to drink, give&nbs p;120 mL Juice or Regular (not diet) sod a OR If NPO, give 15 gram glucose 40% oral gel massaged into buccal mucosa OR if unconscious or uncooperative, give 25 gram (250 mL) Dextrose 10 % IV over 15 minutes per protocol O R, if no IV access, 1 mg Glucagon IM. For BG less than 50 mg/dL: Oral treatment preferred: If able to drink, give 240 mL Juice or Regular (not diet) soda OR If NPO, give 30 gram glucose 40% oral gel massaged in buccal mucosa OR if unconscious or uncooperative, give 25 gram (250 mL) Dextrose 10% IV over 15 minutes per&am p;nbsp;protocol OR, if no IV access, 1 m g Glucagon IM. Recheck BG in 30 minutes. May repeat juice/soda, gel, dextrose or glucagon once per episode. For persiste nt hypoglycemia, consider longer-acting treatment for the duration of the active insulin.
Routine documented in this encounter Care Teams Political Advisor Relationship Specialty Start Date End Date Annette Duncan MD PCP - General Family Medicine 01/20/[address] [place] [address] [address] [place] [address] documented as of this encounter
--- OUTSIDE RECORDS SUMMARY | 2022-02-01 03:20 | XMS_ITS | Encounter Summary ---
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 Procedures PRO LAP, ADRENALECTOMY @ROBOTIC LAPAROSCOPIC ADRENALECTOMY ([facility] [place] .73) MODIFIER ROBOT,DAVINCI XI Emergency IPI Referral ID Status Reason Start Date Expiration Date Visits Requ ested Visits Authorized [id number] 1 1 Encounter Details Date Type Department Care Team Description 11/01/2021 Surgery Main Operating Room Nery Frederick MD @ROBOTIC LAPAROSCOPIC [facility] ADRENAL ECTOMY ([facility] [address]) [place] [address] [place] [address] [phone] Social History Tobacco Use Types Packs/Day Years [...] Sign Reading Time Taken Comments Blood Pressure 109/64 11/01/2021 2:04 PM EDT Pulse 76 11/01/2021 2:04 PM EDT Temperature 36.6 ??C (97.9 ??F) 11/01/2021 2:04 PM EDT Respiratory Rate 16 11/01/2021 2:04 PM EDT Oxygen Saturation 96% 11/01/2021 2:04 PM EDT Inhaled Oxygen Concentration - - Weight [...] Primary * Florentino Holly PA - Physician Cop Breaker * Enmanuel Sandra MD - Resident: Procedure(s): @ROBOTIC LAPAROSCOPIC ADRENALECTOMY ([facility] 20.73) MODIFIER ROBOT,ROBINA XI Operative Findings: left adrenal nodule contained to the gland. Left adrenal vein small and taken with vessel sealer. Other Major Procedures: N/A Hospital Course: Lynne Henderson was admitted to [facility] on 11/01/2021 via the Same Day Program. [...] See below. Pathology: Pending Microbiology: COVID-19 PCR [[id number]] Collected: 11/01/212219 Lab Status: Final result Specimen: Nasopharyngeal Swab Updated: 11/02/21 015 SARS-CoV-2 RNA PCR Labs: No results found [...] Center 11/13/2021 10:00 AM MOTILITY LAB 2 [facility] GAS 4T [facility] 11/16/2021 11:30 AM Nery Frederick MD [facility] SURG [facility] Outpatient Services/Studies: No discharge procedures on file. Instructions Given to Patient at Discharge:. An After Visit Summary was printed and given to the patient. Patient Instructions [facility] Department of Surgery Discharge Instructions Following [...] day, it is best to call the 4 General Surgery Clinic to speak with the Surgery nurses. The number is [phone]. - During the night or weekends call the [facility] whip operator at [phone] and ask to speak to the surgery resident product demonstrator for general surgery. Please note: Your surgeon may not be Security Messenger, especially during the night or on weekends, so be ready to describe yourself and your surgery when you call. Follow up appointments: Future Appointments Date Time Provider Department Center 11/13/2021 10:00 AM MOTILITY LAB 2 [facility] GAS 4T [facility] 11/16/2021 11:30 AM Nery Frederick MD [facility] SURG [facility] [x] Follow-up appointment with General Surgery has already been scheduled If you need a prior authorization, please call the General Surgery Clinic nurses [phone] for prior authorizations assistance General Instructions None Future Appointments and Orders Future Appointments and Orders Future Appointments Provider Department Dept Phone 11/13/2021 10:00 AM MOTILITY LAB 2 Gastroenterology at [facility] Arrive at: Front Desk Specialist Area 4T [phone] 11/16/2021 11:30 AM Nery Frederick MD General Surgery at [facility] Arrive at: Front Desk Specialist Area Discharge References/Attachments: Discharge References/Attachments None Follow-up Recommendations for Providers: Medication changes: N/A Diet changes: N/A Other: N/A CC: Annette Duncan MD [phone] Signed: RON [facility] Endocrine Surgery Service Team Pager #[phone] 11/02/2021 9:52 AM For questions regarding this document or issues relating to this hospitalization on the Endocrine Surgery Service, please contact Nery Frederick MD's office at . documented in this encounter Discharge Instructions Patient InstructionsFlorentino Holly PA - 11/01/2021 8:43 PM EDT [facility] Department of Surgery Discharge Instructions Following [...] with the Surgery nurses. The number is [phone]. - During the night or weekends call the [facility] whip operator at [phone] and ask to speak to the surgery resident product demonstrator for general surgery. Please note: Your surgeon may not be Security Messenger, especially during the night or on weekends, so be ready to describe yourself and your surgery when you call. Follow up appointments: Future Appointments Date Time Provider Department Center 11/13/2021 10:00 AM MOTILITY LAB 2 [facility] GAS 4T [facility] 11/16/2021 11:30 AM Nery Frederick MD [facility] SURG [facility] [x] Follow-up appointment with General Surgery has already been scheduled If you need a prior authorization, please call the General Surgery Clinic nurses [phone] for prior authorizations assistance documented in this [...] (Flonase) 50 SPRAYS IN EACH NOSTRIL mcg/actuation [place], DAILY Suspension documented as of this encounter [...] Value Ref Range T&S only valid at [facility] Hosp POCT Glucose Result [...] Ethan Mckeon MD 11/01/2021 Surgical Oncology [id number] yAah Gandhi RN - 11/01/2021 8:25 PM EDT [...] SBP>90 is acceptable, similar to pre-op pressure. 2215 - Patient's Julien to bedside. 2325 - Handoff to CONNIE Telles documented in [...] week. ??? fluticasone propionate (Flonase) 50 mcg/actuation [place], Suspension SHAKE LIQUID AND USE 2 SPRAYS [...] COVID test: Lab Results Component Value Date [id number] Not Detected 11/01/2021 Past medical History: History reviewed. No pertinent past medical history. Hospitalizations Within the Past 30 Days: no previous admission in last 30 days Current Decision-Making Capacity: Self Advance Care Planning: Attempt Cardiopulmonary Resuscitation - Inpatient <no information> -Advanced Directive: No, need to discuss If AD's have not been completed would be surrogate decision maker per [place] surrogate decision making law. (Only good for 180 days) Any patient receiving care at [facility] must abide by [place] law. The hierarchy for surrogate decision making [...] (i) The agent with financial power of collections attorney or a conservator appointed in accordance with [...] DME: none Home Address confirmed as: [address] [address] Social & Family Supports: All names listed below confirmed with patient as current and correct Extended Emergency Contact Information Primary Emergency Contact: Julien Henderson Address: [address] [place], [place] [address] [place] [address] Mobile Relation: Spouse Current Care Provided by: [...] Specific Information: none Health/Prescription Coverage: Primary Insurance: [employer] Payor: [employer] / Plan: [facility] PPO / Product Type: *No Product type* / Secondary Insurance: N/A Prescription Coverage: Yes Preferred Pharmacy: [id number] AT SEC OF [facility] & [address] [address] [place], [place] [address] [facility] [address] [facility] [address] [facility] [address] [facility] [address] - [place], [place] - [address] [facility] [address] [facility] [address] [place] Status: Patient is a : unable to assess Primary Care Provider: Annette Duncan MD [phone] Patient/Caregiver Goals of Treatment: to get home [...] planning. Office of Care Management Surgery Team Occupational Therapist Assistant [email or web address] Pager #[phone] Brief Op Note - Nery Frederick MD - 11/01/2021 7:53 PM EDT Brief Operative Note Patient Name: Lynne Henderson : [id number] MR#: [id number] Case Date: 11/01/2021 Surgeon: Surgeon(s) and Role: * Nery Frederick MD - Primary * Florentino Holly PA - Physician Cop Breaker * Enmanuel Sandra MD - Resident Preoperative [...] Frederick MD - 11/01/2021 4:42 PM EDT [facility] Operative Note Patient Name: Lynne eHnderson : [id number] MR#: [id number] Case Date: 11/01/2021 - 11/02/2021 Surgeon: Surgeon(s) and Role: * Nery Frederick MD - Primary * Florentino Holly PA - Physician Cop Breaker * Enmanuel Sandra MD - Resident Preoperative [...] our midclavicular port. We also placed an nurses medical assistants phlebotomists port 12 mm just inferior to these [...] Yes 11/01/2021 3:55 PM LEFT ADRENAL [facility] ([facility] POCT GLUCOSE Routine 11/01/2021 [...] POC Glucose 200 (H) 65 - 199 [facility] mg/dL [facility] Comment: Supplemental ranges: <140 mg/dL before meals <180 mg/dL all other times of the day Specimen Anatomical Collection Method Collection Time Receive d Time (Source) Location / / Volume Laterality Blood 11/02/2021 8:20 AM 8:20 EDT AM EDT Nery Frederick MD POINT OF CARE TEST ORDERABLE S Performing Organization Address City/State/[place] [address] POCT Glucose (11/02/2021 5:19 AM EDT) P athologist Signature POC Glucose 118 65 - 199 [place] mg/dL [facility] Comment: Supplemental ranges: <140 mg/dL before meals <180 mg/dL all other times of the day Specimen Anatomical Collection Method Collection Time Receive d Time (Source) Location / / Volume Laterality Blood 11/02/2021 5:19 AM 5:19 EDT AM EDT Nery Frederick MD POINT OF CARE TEST ORDERABLE S Performing Organization Address City/State/[place] [address] POCT Glucose (11/02/2021 12:54 AM EDT) athologist Signature POC Glucose 143 65 - 199 [facility] mg/dL [facility] Comment: Supplemental ranges: <140 mg/dL before meals <180 mg/dL all other times of the day Specimen Anatomical Collection Method Collection Time Receive d Time (Source) Location / / Volume Laterality Blood 11/02/2021 12:54 11/02/2021 AM EDT 12:54 AM EDT Nery Frederick MD POINT OF CARE TEST ORDERABLE S Performing Organization Address City/State/ZIP Code Phon e Number [address] POCT Glucose (11/01/2021 10:37 PM EDT) athologist Signature POC Glucose 168 65 - 199 [place] mg/dL [facility] Comment: Supplemental ranges: <140 mg/dL before meals <180 mg/dL all other times of the day Specimen Anatomical Collection Method Collection Time Receive d Time (Source) Location / / Volume Laterality Blood 11/01/2021 10:37 11/01/2021 PM EDT 10:37 PM EDT Nery Frederick MD POINT OF CARE TEST ORDERABLE S Performing Organization Address City/State/[place] [address] COVID-19 PCR (11/01/2021 10:20 PM EDT) [facility] Method Time Signature SARS-CoV-2 Not Detected Not Detected [facility] RNA PCR [facility] Comment: This result should be [...] using the Simplexa COVID-19 Direct Assay by DocVueha loera as authorized by the FDA issued [...] Department of Pathology and Laboratory Medicine at [facility], certified under the Clinical Laboratory Improvement Amendmen [...] clinical management guidance information are available at th e CDC Coronavirus Disease 2019 (COVID-19) webpage under Information fo r Healthcare Professionals (https://www.cdc.gov/coronavirus/2019-nc ov/hcp/index.html). Additional information about this and ot her EUA tests can be found in provider and patient fact sheets at the following FDA website: https://www.fda.gov/medical-devices/tfxrwupkxlf-hyukjpl-3150-bllfh-65-yoqrmgggw- coy-hmcagwuwhqbgif-qktwupy-devices/ghbrc-bcaqvrdgwqk-odmq SARS-CoV-2 Source UTILITY MAINTENANCE WORKER Swab [facility] Specimen (Source) Anatomical Collection Method Collection Time Re ceived Time Location / / Volume Laterality Nasopharyngeal Swab 11/01/2021 10:20 04/0 08/2021 PM EDT 12:09 AM EDT Comment: Symptoms->Surveillance Resulting Agency Comment Spec In Lab Nery Frederick MD MICROBIOLOGY - GENERAL ORDER MELISSA Performing Organization Address City/State/ZIP Code Phon e Number [address] POCT Glucose (11/01/2021 9:10 PM EDT) athologist Signature POC Glucose 178 65 - 199 [facility] Comment: Supplemental ranges: <140 mg/dL before meals <180 mg/dL all other times of the day Specimen Anatomical Collection Method Collection Time Receive d Time (Source) Location / / Volume Laterality Blood 11/01/2021 9:10 PM 2 9:10 EDT PM EDT Nery Frederick MD POINT OF CARE TEST ORDERABLE S Performing Organization Address City/[facility]/[place] [address] (ABNORMAL) POCT Glucose (11/01/2021 8:28 PM EDT) athologist Signature POC Glucose 206 (H) 65 - 199 [facility] [place] mg/dL [facility] Comment: Supplemental ranges: <140 mg/dL before meals <180 mg/dL all other times of the day Specimen Anatomical Collection Method Collection Time Receive d Time (Source) Location / / Volume Laterality Blood 11/01/2021 8:28 PM 2 8:28 EDT PM EDT Nery Frederick MD POINT OF CARE TEST ORDERABLE S Performing Organization Address City/[facility]/[place] [address] (ABNORMAL) POCT Glucose (11/01/2021 7:34 PM EDT) P athologist Signature POC Glucose 218 (H) 65 - 199 [facility] mg/dL [facility] Comment: Supplemental ranges: <140 mg/dL before meals <180 mg/dL all other times of the day Specimen Anatomical Collection Method Collection Time Receive d Time (Source) Location / / Volume Laterality Blood 11/01/2021 7:34 PM 2 7:34 EDT PM EDT Nery Frederick MD POINT OF CARE TEST ORDERABLE S Performing Organization Address City/[facility]/ZIP Code Phon e Number [address] Specimen to Pathology (11/01/2021 7:20 PM EDT) Specimen Anatomical Collection Method Collection Time Receive d Time (Source) Location / / Volume Laterality AP Specimen 11/01/2021 7:20 PM 2 7:20 EDT PM EDT Narrative [facility] - 11/01/2021 7:20 PM EDT Specimen requisition ordered. ??Separate Pathology report to follow Nery Frederick MD PATHOLOGY/CYTOLOGY ORDERABLE S Performing Organization Address City/[facility]/[place] [address] Surgical Pathology Report (11/01/2021 7:19 PM EDT) Component Value Ref Test Analysis Performed At Patholo gist Range Method Time Signature Surgical [id number] ? Location: PACU; MS22; A [facility] Report The signing pathologist has (i) examined the relevant preparation(s) for the [facility] specimen(s) and (ii) rendered or confirmed the diagnosis(es) . HOSPITAL LABORATORY . ?Surgic al Pathology DIAGNOSIS A - ??Left adrenal gland , excision: ??- Adrenal cortical adenoma, 3.5 cm. Electronically signed by: ?Rose Araya MD Verified: ??11/09/2021 16:06 ??Pathologist Performed at: ??-[facility] Dept. of Pathology, [place], [place] DISCUSSION The clinical setting of a [...] cm, 35.4g (overall). Tissue Description: Intact, lobulated unuglq-myi-oyqmvv adrenal gland and attached fat, which is [...] medulla. Sections/Processing: The capsule is inked black. Retort Load Expediter sections in 8 cassettes as follows: ?A1-A4: ??nodule ?A5: ??Nodule and adjacent adrenal gland ?A6-A8: ??adjacent adrenal gland (A6/A7 = one section, bisected) ??shb Specimen (Source) Anatomical Collection Method Collection Time Re ceived Time Location / / Volume Laterality 11/01/2021 7:19 PM EDT Nery Frederick MD PATHOLOGY/CYTOLOGY ORDERABLE S Performing Organization Address City/State/[place] [address] (ABNORMAL) POCT Glucose (11/01/2021 6:24 PM EDT) athologist Signature POC Glucose 238 (H) 65 - 199 [place] mg/dL [facility] Comment: Supplemental ranges: <140 mg/dL before meals <180 mg/dL all other times of the day Specimen Anatomical Collection Method Collection Time Receive d Time (Source) Location / / Volume Laterality Blood 11/01/2021 6:24 PM 2 6:24 EDT PM EDT Nery Frederick MD POINT OF CARE TEST ORDERABLE S Performing Organization Address City/State/ZIP Code Phon e Number [address] POCT Glucose (11/01/2021 2:19 PM EDT) P athologist Signature POC Glucose 108 65 - 199 [facility] mg/dL [facility] Comment: Supplemental ranges: <140 mg/dL before meals <180 mg/dL all other times of the day Specimen Anatomical Collection Method Collection Time Receive d Time (Source) Location / / Volume Laterality Blood 11/01/2021 2:19 PM 2 2:19 EDT PM EDT Nery Frederick MD POINT OF CARE TEST ORDERABLE S Performing Organization Address City/State/ZIP Code Phon e Number [address] Type and Screen Validity (11/01/2021 12:38 PM EDT) [facility] Method Time Signature T&S only valid [facility] at [facility] Comment: This Type and Screen result is only valid at the [facility] Specimen Anatomical Collection Method Collection Time Receive d Time (Source) Location / / Volume Laterality Blood 11/01/2021 12:38 11/01/2021 PM EDT 12:40 PM EDT Resulting Agency Comment Spec In Lab Nery Frederick MD BLOOD BANK ORDERABLES Performing Organization Address City/State/ZIP Code Phon e Number [address] ABORH Recheck Status (11/01/2021 12:38 PM EDT) [facility] Method Time Signature ABORH Recheck Order Placed [facility] LABORATORY ABORH Type Complete [facility] LABORATORY Specimen Anatomical Collection Method Collection Time Receive d Time (Source) Location / / Volume Laterality Blood 11/01/2021 12:38 11/01/2021 PM EDT 12:40 PM EDT Resulting Agency Comment Spec In Lab Nery Frederick MD BLOOD BANK ORDERABLES Performing Organization Address City/[facility]/[place] [address] Antibody screen (11/01/2021 12:38 PM EDT) Patholo gist Method Time Signature Ab Screen Negative [facility] LABORATORY Expires at 11/04/2021 [facility] 2359 on: [facility] Specimen Anatomical Collection Method Collection Time Receive d Time (Source) Location / / Volume Laterality Blood 11/01/2021 12:38 11/01/2021 PM EDT 12:40 PM EDT Resulting Agency Comment Spec In Lab Nery Frederick MD BLOOD BANK ORDERABLES Performing Organization Address City/[facility]/[place] [address] ABO/Rh Typing (11/01/2021 12:38 PM EDT) P athologist Signature ABORh Type O Pos [facility] Specimen Anatomical Collection Method Collection Time Receive d Time (Source) Location / / Volume Laterality Blood 11/01/2021 12:38 11/01/2021 PM EDT 12:40 PM EDT Resulting Agency Comment Spec In Lab Nery Frederick MD BLOOD BANK ORDERABLES Performing Organization Address City/[facility]/[place] [address] documented in this encounter Visit Diagnoses Not on filedocumented in this encounter Admitting Diagnoses Diagnosis H/O [...] Oral, EVERY 6 HOURS PRN, Starting on Enriqueta 11/01/21 at 2035, Until Fri11/02/21 at 1405, Pain, Maximum dose of acetaminophen is 4000 mg from all sources in 24 hours. When ordered for pain, acetaminophen should be given even when other ordered pain medications are indicated. , Routine Given 11/01/2021 10:59 PM EDT 975 mg BUpivacaine (pf) (Marcaine) (2.5 mg/mL) 0.25% Given 8:00 PM EDT 30 mLs injection ONCE PRN, Starting on Enriqueta 11/01/21 at 2000, Until Fri11/02/21 at 1405, Intra-Operative (Intra-Procedure), Routine dextrose 10% infusion 250 mL, at 1,000 [...] PRN, S tarting on Enriqueta 11/01/21 at 2035, Until Fri11/02/21 at 1405, Low [...] Buccal, EVERY 30 MIN PRN, Starting on Enriqueta 10/04 08/25 at 2035, Until Fri11/02/21 at 1405, Low [...] EDT injection 5,000 Units 5,000 Units, Subcutaneous, SCHOOL SOCIAL WORKER TO O.R., 1 dose, On Fri11/01/21 at [...] at 100 mL/hr, Intravenous, CONTINUOUS, Starting on Fri11/01/21 at 1415, Until Fri11/01/21 at 2314, Day [...] 30 MIN PRN, 2 doses, Starting on 11/01/21 at 2021, Until Enriqueta 11/01/21 at 2314, Nausea, Maximum [...] 11/02/2021 acetaminophen (Tylenol) tablet 1,000 mg (COMPLETED) 1433 (Given - Provider: Africa Hassan, CONNIE) 1,000 mg, Oral, ONCE, 1 dose, On Enriqueta 10/04 08/25 at 1415, Administer with SIP of H2O only., Day of Surgery (Day of Procedure), Routine ceFAZolin (Ancef) 2 g in dextrose 5% 100 mL infusion (COMPLE DENNISE) 1615 (Given - Provider: Eugenia Mcclure CRNA) 2 g, Intravenous, SCHOOL SOCIAL WORKER TO O.R., 1 dos e, On Enriqueta 11/01/21 at 1415, Administer over 30 Minutes, Indication for (Active or Suspected): Prophylaxis heparin (porcine) (5,000 units/1 mL) sub cutaneous injection 5,000 Units (COMPLETED) 143 (Given - Provider: Africa sosa, RN) 5,000 Units, Subcutaneous, SCHOOL SOCIAL WORKER TO O. R., 1 dose, On Enriqueta 11/01/21 at 1415, Routine insulin lispro (HumaLOG;Admelog) (100 un it/mL) subcutaneous injection vial 1-4 Units(Linked Group 1) 2110 (Given - Provider: Rafaela Gandhi, CONNIE - Comment: glucose 178) 010 (Not Given - Provider: Elfego Khalil , CONNIE - Reason: Order parameters not met - Comment: BG [phone] (Not Given - Provider: Elfego Khalil RN - Reason: Order parameters not met - Comment: BG [phone] (Given - Provider: Nadja Waterman, CONNIE) 1-4 Units, Subcutaneous, EVERY 4 HOURS S [...] 5 mL 2255 (Given - Provider: Ayah Gandhi, RN) 0830 (Given - Provider: Nadja Waterman [...] mg 22 59 (Given - Provider: Ayah Gandhi, CONNIE) 0643 (Given - Provider: Elfego Khalil RN [...] EVERY 30 MIN PRN, Start ing on Enriqueta 11/01/21 at 2035, Until Fri11/02/21 at 1405, Low [...] MIN PRN, S tarting on Fri11/01/21 at 202, Until Fri11/01/21 at 2314, Pain, For Mild [...] 2 mg 0653 (Given - Provider: Elfego Khalil RN)1036 (Given - Provider: Nadja Waterman RN) 2 [...] MIN PRN, 2 d oses, Starting on Fri11/01/21 at 2021, Until Fri11/01/21 at 2314, Nausea, Maximum total dose of [...] ETED) 2125 (Given - Provider: Ayah Gandhi, CONNIE)2209 (Given - Provider: Ayah Gnadhi RN) 5 mg, Intravenous, EVERY 30 MIN PRN, 2 d oses, Starting on Fri11/01/21 at 2021, Until Discontinued, Nausea, Maximum total [...] Routine, EVERY 4 HOURS, First occurrence on Fri11/01/21 at 204, Until Specified
Consider choosing EVERY [...] 4 HOURS S CHEDULED, First dose on Fri11/01/21 at 2100, Until Discontinued
CORRECTION BOLUS [1-4 [...]
Routine documented in this encounter Care Teams Cco Relationship Specialty Start Date End Date Annette Duncan MD PCP - General Family Medicine 01/20/[address] [place] [address] [address] [place] [address] documented as of this encounter
--- OUTSIDE RECORDS SUMMARY | 2022-02-01 03:22 | XMS_ITS | Encounter Summary ---
:1970 Author Organization [facility] Address [address] [place] [address] Care Team Providers Name Role Phone Annette Duncan MD Primary Care Provider Annette Duncan MD Unavailable Encounter Details Date Type Department Care Team Description 07/12/2021 Lab Requisition [facility] Outr Resulting Lab, Pathology & Laboratory Provider [facility] [address] [id number] Social History Tobacco Use Types Packs/Day Years Used Date Never Assessed Sex Assigned at Date Recorded Not on file documented as of this encounter Plan of Treatment Not on filedocumented as of this encounter Procedures Procedure Name Priority Date/Time Associated Diagnosis Comme nts ANCA, IFA Routine 07/12/2021 9:13 EST Results for this procedure are i n the results section . documented in this encounter Results ANCA, IFA (07/12/2021 9:13 EST) Lab ANCA Negative Negative [facility] Interpretation Comment: LABORATORY No titer performed, ANCA Screen is negative. SERVICES Results were obtained with adam sauceda ScribeStormVA NOVA Lite ANCA kit by indirect immunofluorescence. Specimen Blood - Venous blood (substance) Performing Organization Address City/State/ZIP Code Phon e Number [facility] [address] [place] [address] SERVICES documented in this encounter Visit Diagnoses Not on filedocumented in this encounter Care Teams Bell Maker Relationship Specialty Start Date End Date Annette Duncan MD PCP - General 09/30/16 [address] [place], [place] [address] Annette Duncan MD 06/19/[address] [facility] [address] [place] [phone] documented as of this encounter
--- OUTSIDE RECORDS SUMMARY | 2022-02-01 03:22 | XMS_ITS | Encounter Summary ---
:[address] [facility] Address [address] [place] [address] Care Team Providers Name Role Phone Annette Duncan MD Primary Care Provider Annette Duncan MD Unavailable Encounter Details Date Type Department Care Team Description 06/28/2021 Lab Requisition [facility] Outr Resulting Lab, Pathology & Laboratory Provider [facility] [address] [place] [address] Social History Tobacco Use Types Packs/Day Years Used Date Never Assessed Sex Assigned at Date Recorded Not on file documented as of this encounter Plan of Treatment Not on filedocumented as of this encounter Procedures Procedure Name Priority Date/Time Associated Comments Diagnosis GIARDIA AND Routine 06/27/2021 7:15 Results for this CRYPTOSPORIDIUM ANTIGENS EST pro cedure are in the results section. documented in this encounter Results GIARDIA AND CRYPTOSPORIDIUM ANTIGENS (06/27/2021 7:15 EST) Giardia and Cryptosporidium Cryptosporidium [facility] MEDICAL Cryptosporidium Antigen Neg and Antigen Neg and CENTER Giardia Antigen Neg Giardia Antigen Neg LABORATORY SERVICES Specimen Feces - Specimen from rectum (specimen) Performing Organization Address City/State/ZIP Code Phon e Number [facility] [address] [place] [address] SERVICES documented in this encounter Visit Diagnoses Not on filedocumented in this encounter Care Teams Queen Producer Relationship Specialty Start Date End Date Annette Duncan MD PCP - General 09/30/16 [address] [place], [place] [address] Annette Duncan MD 06/19/16 [facility] [address] [place] [phone] documented as of this encounter
--- OUTSIDE RECORDS SUMMARY | 2022-02-01 03:22 | XMS_ITS | Encounter Summary ---
:1970 Author Organization [facility] Address [address] [place] [address] Care Team Providers Name Role Phone Annette Duncan MD Primary Care Provider Encounter Details Date Type Department Care Team Description 03/11/2013 Results Only [facility] Omra Dee, [facility] Laboratory Services - [address] [facility] [address] [id number] [place] [address] [phone] Social History Tobacco Use Types Packs/Day Years Used Date Never Assessed Sex Assigned at Date Recorded Not on file documented as of this encounter Plan of Treatment Not on filedocumented as of this encounter Procedures Procedure Name Priority Date/Time Associated Diagnosis Comme nts PAP TEST- RESULT Routine 03/11/2013 0:00 EDT Resu lts for this ONLY procedure are i n the results section. documented in this encounter Results PAP TEST- RESULT ONLY (03/11/2013 0:00 EDT) Pathology Report: CYTOPATHOLOGY REPORT [facility] Reports generated via electronic interface contain charisse ginal data; however they are lacking the format of the original re port. Caution should be taken when reading/interpreting unfo rmatted reports. Name: ? LAURA CONTRERAS ? Accession #: ? [id number] ? : ? 1970 (Age: 42) ??F ?Collect Da te: ? 03/11/2013 ? Location: ? [facility] ? Receive Date: ? 013 ? Provider: ANNETTE DUNCAN MD Copy to: ? Final Report SPECIMEN ADEQUACY ? Satisfactory for Evaluation - transformation zone component present GENERAL CATEGORIZATION ? Negative for Intraepithelial Lesion or Malignan cy INTERPRETATION ? Reactive cellular ayo nges associated with inflammation present (includes repair). Last Menstrual Period: 03/05/13 Other: Additional clinical information: DUB Specimen/Source: ??Pap Test, Cervix/Endocervix, ThinPr ep Imaging System with manual evaluation Document reviewed and electronically signed by: ? ALEXANDRE PAGE MD [facility] ? Report ??Date: 03/23/2013 17:48 HPV with Pap Test ? Date Ordered: ? 03/23/2013 ? Status: ?? Signed Out ?Date Complete: ? 03/25/2013 ? By: ??S ystem Interface ? Date Reported: ? 03/25/2013 ? Interpretation RESULT: Negative for HPV. No E6 or E7 mRNA is detected from HPV types 16,18,31,3 3,35, 39,45,51,52,56,58,59,66, and 68 by city marshal media john amplification. Comments Document reviewed and electronically signed by: ? System Interface ? Report date: 03/25/2013 By the signature above, the attending physician certif ies that he/she has personally conducted a gross and/or microscopic examin ation of the described specimens and rendered or confirmed the above diagnosi s. End of Report Specimen Performing Organization Address City/State/ZIP Code Phon e Number [facility] [address] [place] [address] SERVICES [facility] [address] [place] [address] documented in this encounter Visit Diagnoses Not on filedocumented in this encounter Care Teams Cupola Charger Relationship Specialty Start Date End Date Annette Duncan MD PCP - General 07/19/11 06/18/[address] [place] [phone] documented as of this encounter
--- OUTSIDE RECORDS SUMMARY | 2022-02-01 03:22 | XMS_ITS | Encounter Summary ---
:1970 Author Organization [facility] Address [address] [place] [address] Care Team Providers Name Role Phone Annette Duncan MD Primary Care Provider Unknown, Provider Primary Care Provider Annette Duncan MD Unavailable Encounter Details Date Type Department Care Team Description 06/18/2016 Results Only [facility] Annette Duncan MD [phone] [place] [address] (Wo rk) Social History Tobacco Use Types Packs/Day Years Used Date Never Assessed Sex Assigned at Date Recorded Not on file documented as of this encounter Plan of Treatment Not on filedocumented as of this encounter Procedures Procedure Name Priority Date/Time Associated Diagnosis Comme nts PAP TEST- RESULT Routine 06/18/2016 0:00 EST Resu lts for this ONLY procedure are i n the results section. documented in this encounter Results PAP TEST- RESULT ONLY (06/18/2016 0:00 EST) Pathology Report: CYTOPATHOLOGY REPORT [facility] Reports generated via electronic interface contain charisse ginal data; SERVICES however they are lacking the format of the original re port. Caution should be taken when reading/interpreting unfo rmatted reports. Name: ? SUKH PEDRAZA ? Accession #: ? [id number] ? : ? 1970 (Age: [age]) ??F ?Collect Da te: ? 06/18/2016 ? Location: ? [facility] ? Receive Date: ? 016 ? Provider: ANNETTE DUNCAN MD Copy to: ? Final Report SPECIMEN ADEQUACY ? Satisfactory for Evaluation - transformation zone component absent GENERAL CATEGORIZATION ? Negative for Intraepithelial Lesion or Malignan cy ?? Last Menstrual Period: 06/07/2016 Hormonal/Contraceptive status: None Other: Pin Maker Clinical/Treatment Hx - None Specimen/Source: ??Pap Test, Cervix/Endocervix, ThinPr ep Imaging System with manual evaluation Document reviewed and electronically signed by: ? Sonya Laughlin, [facility](ASCP) ? Report ??Date: 06/25/2016 10:04 HPV with Pap Test ? Date Ordered: ? 06/25/2016 ? Status: ?? Signed Out ?Date Complete: ? 06/28/2016 ? By: ??S ystem Interface ? Date Reported: ? 06/28/2016 ? Interpretation RESULT: Negative for HPV. No E6 or E7 mRNA is detected from HPV types 16,18,31,3 3,35, 39,45,51,52,56,58,59,66, and 68 by cutlery grinder media john amplification. Comments Document reviewed and electronically signed by: ? System Interface ? Report date: 06/28/2016 By the signature above, the attending physician certif ies that he/she has personally conducted a gross and/or microscopic examin ation of the described specimens and rendered or confirmed the above diagnosi s. End of Report Specimen Performing Organization Address City/State/ZIP Code Phon e Number [facility] [address] [place] [address] SERVICES documented in this encounter Visit Diagnoses Not on filedocumented in this encounter Care Teams Correctional Officer Chief Relationship Specialty Start Date End Date Annette Duncan MD PCP - General 07/19/11 06/18/[address] [place] [address] Unknown, Provider, PCP - General 06/19/16 09/29/16 Annette Duncan MD 06/19/[address] [place] [address] documented as of this encounter
--- OUTSIDE RECORDS SUMMARY | 2022-02-01 03:22 | XMS_ITS | Encounter Summary ---
:1970 Author Organization [facility] Address [address] [place] [address] Care Team Providers Name Role Phone Unknown, Provider Primary Care Provider Annette Pollard MD Unavailable Encounter Details Date Type Department Care Team Description 09/05/2016 Results Only [facility]- Chiara Juarez MD [phone] [address] [place], [place] [address] (Wo rk) Social History Tobacco Use Types Packs/Day Years Used Date Never Assessed Sex Assigned at Date Recorded Not on file documented as of this encounter Plan of Treatment Not on filedocumented as of this encounter Procedures Procedure Name Priority Date/Time Associated Diagnosis Comme nts SURGICAL PATHOLOGY Routine 09/05/2016 15:40 Resul ts for this EST procedure are i n the results section. documented in this encounter Results SURGICAL PATHOLOGY (09/05/2016 15:40 EST) Pathology Report: SURGICAL PATHOLOGY REPORT [facility] Reports generated via electronic interface conta in original data; CENTER LABORATORY however they are lacking the format of the original re port. SERVICES Caution should be taken when reading/interpreting unfo rmatted reports. Name: ? SUKH PEDRAZA ? Accession #: ? [id number] ? : ? 1970 (Age: 6 3) ??F ? Collect Date: ? 09/05/2016 ? Location: ? [facility] ? Receive Date: ? 09/05/2016 ? Provider: CHIARA CORDOVA MD Copy to: ANNETTE POLLARD MD ? Final Pathologic Diagnosis: UTERUS, FALLOPIAN TUBE IS AN OVARIES, HYSTERECTOMY AND BILATERAL SALPINGO-OOPHORECTOMY: - Cervix: ? - Cystically dilated endocervical glands (nabot hian cysts). ? - Squamous metaplasia. - Endometrium: ? - Benign secretory-type endometrium with no spe cific histopathologic features. - Myometrium: ? - Leiomyomata, intramural. - Uterine serosa: ? - Fibrinous adhesions and subserosal vascular c ongestion. - Fallopian tube, right: ? - Benign fallopian tube with no specific histop athologic features. - Fallopian tube, left: ? - Paratubal cyst. - Ovary, right: ? - Follicle cysts. - Ovary, left: ? - Benign simple cyst. ? - Cystic corpus luteum. Document reviewed and electronically signed by: Stella Randall MD Report ??Date: 09/17/2016 11:53 By the signature above, the attending physician certif ies that he/she has personally conducted a gross and/or microscopic examin ation of the described specimens and rendered or confirmed the above diagnosi s. Specimen(s) Received: Uterus, bilateral ovaries, and bilateral fallopian tub es Clinical History: Dysfunctional uterine bleeding; pelvic p ain; LMP: 08/10/2016; clinical diagnosis code: N94.9, N92.0, R10.2 Gross Description: ? Received in formalin labelled with proper patient identification (initials B, C) and uterus, bilateral fallopian tubes, and bila teral ovaries is an intact uterus and cervix (72 g, 8.4 cm cervix to fundus x 4.0 cm cornu to cornu x 4.0 cm anterior to posterior) with attached bilatera l fimbriated fallopian tubes (Right: 5.4 cm in length x 0.[address]; Left: 4.2 cm in Length x 0.5 cm in diameter) and ovaries (Right: 4.0 x 2. 6 x 2.6 cm; Left: 4.6 x 4.5 x 2.6 cm). ? The uterine serosa is iqbal-pink, with dull adhes ions on the posterior aspect. The ectocervix is iqbal-pink, smooth, and gliste rhoda, with a patent pinpoint-like os. The cervix is iqbal-pink and rubbery w ith an unremarkable herringbone pattern. The end ometrium is iqbal-pink and soft and averages 0.3 cm in thickness. The myometrium is iqbal-pink and trabeculated , with an average thickness of 1.5 cm. There are two intra mural nodules measuring 0.6 cm and 0.7 cm in greatest dimension. ? The ovaries have a pale yellow nodular cu t surface, each with a cystic component. On the left ovary, is a pedunculated cystic structure (1.2 x 0.7 x 0.7 cm). The cut surfaces are multiloculated and fille d with a gelatinous material. The remaining cut surfaces show purple ovari an parenchyma. The fallopian tubes have pritchett-purple hyperemic serosa. The cut surfaces have an unremarkable pinpoint lumen. Representat kong sections are submitted as follows: BLOCK FLORES 1- ??anterior cervix and lower uterine segment 2- ??anterior endomyometrium with nodule 3- ??posterior cervix and lower uterine segment 4- ??posterior endomyometrium with nodule 5-6- ??right ovary 7- ??right fimbria, bisected, and two cross sections 8-9- ??left ovary with pedunculated cyst ?? 10- ??left fimbria, bisected, and two cross sections 11-12- additional anterior endomyometrium 13- posterior endomyometrium with serosa RON Rocha (ASCP) 09/09/2016 10:58 AM End of Report Specimen Performing Organization Address City/State/ZIP Code Phon e Number [facility] [address] [place] [address] SERVICES documented in this encounter Visit Diagnoses Not on filedocumented in this encounter Care Teams Sub Assembly Team Worker Relationship Specialty Start Date End Date Unknown, Provider, PCP - General 06/19/16 09/29/16 Annette Pollard MD 06/19/[address] [place] [phone] documented as of this encounter
--- OUTSIDE RECORDS SUMMARY | 2022-02-01 03:22 | XMS_ITS | Encounter Summary ---
:1970 Author Organization [facility] Address [address] [place] [address] Care Team Providers Name Role Phone Unknown, Provider Primary Care Provider Encounter Details Date Type Department Care Team Description 07/09/2011 Results Only [facility] Tony Silveira MD Laboratory Services - [address] [place] [address] [place] [address] [phone] Social History Tobacco Use Types Packs/Day Years Used Date Never Assessed Sex Assigned at Date Recorded Not on file documented as of this encounter Plan of Treatment Not on filedocumented as of this encounter Procedures Procedure Name Priority Date/Time Associated Diagnosis Comme nts SURGICAL PATHOLOGY Routine 07/09/2011 0:00 EST Re sults for this procedure are i n the results section. documented in this encounter Results SURGICAL PATHOLOGY (07/09/2011 0:00 EST) Pathology Report: SURGICAL PATHOLOGY REPORT [facility] Reports generated via electronic interface contain charisse ginal data; LAB however they are lacking the format of the original re port. Caution should be taken when reading/interpreting unfo rmatted reports. Name: ? LAURA CONTRERAS ? Accession #: ? [id number] ? : ? 1970 (Age: 40) ??F ? Collect Date: ? 07/09/2011 ? Location: ? [facility] ? Receive Date: ? 07/11/20 11 ? Provider: SAYRA SILVEIRA MD Copy to: EDOUARD POLLARD MD ? Final Pathologic Diagnosis: ? Skin of chest, anterior between b reasts, left of midline, shave biopsy: ? - Seborrheic keratosis, pigmented. Microscopic Description: ? The stratum corneum i s thickened by compact and basketweave orthokeratosis with formation of horn pseud ocysts. ??The epidermis is acanthotic with formation of broad and anastomosing tr abeculae. ??The trabeculae are composed of basaloid keratinocytes with round uniform nuclei. ??The keratin ocytes have a variable amount of melanin pigment. ??(Dr. Colvin)/[facility] Document reviewed and electronically signed by: JAUN COLVIN MD Report ??Date: 07/12/2011 17:09 By the signature above, the attending physician certif ies that he/she has personally conducted a gross and/or microscopic examin ation of the described specimens and rendered or confirmed the above diagnosi s. Specimen(s) Received: ? Ant. chest skin between breast L of M.L. Clinical History: ? Recent onset Gross Description: ? Received in formalin labelled Lynne Contreras Kimmie and [facility] chest skin is a 0.5 x 0.5 x 0.2 cm irregular iqbal-pritchett cobblestoned papule. ??The margin is inked. ??The specimen is bisec john and entirely submitted in a single cassette. ??(Latonya Malave/[facility] End of Report Specimen Performing Organization Address City/State/ZIP Code Phon e Number [facility] [address] [place] [address] SERVICES [facility] [address] [place] [address] documented in this encounter Visit Diagnoses Not on filedocumented in this encounter Care Teams Frame Pulley Mortising Machine Operator Relationship Specialty Start Date End Date Unknown, Provider, PCP - General 12/06/08 07/18/11 documented as of this encounter
--- OUTSIDE RECORDS SUMMARY | 2022-02-01 03:22 | XMS_ITS | Encounter Summary ---
:[address] [facility] Address [address] [place] [address] Care Team Providers Name Role Phone Annette Duncan MD Primary Care Provider Annette Duncan MD Unavailable Encounter Details Date Type Department Care Team Description 06/28/2021 Lab Requisition [facility] Outr Resulting Lab, Pathology & Laboratory Provider [facility] [address] [place], [place] [address] Social History Tobacco Use Types Packs/Day Years Used Date Never Assessed Sex Assigned at Date Recorded Not on file documented as of this encounter Plan of Treatment Not on filedocumented as of this encounter Procedures Procedure Name Priority Date/Time Associated Diagnosis Comme nts FECAL BACTERIAL Routine 06/27/2021 7:15 EST Resul ts for this PATHOGENS BY PCR procedure a re in the results section. documented in this encounter Results FECAL BACTERIAL PATHOGENS BY PCR (06/27/2021 7:15 EST) Pathologist Sig nature Salmonella PCR Negative Negative [facility] Shigella/Enteroinvasive Negative Negative [facility]. coli [facility] SERVICES HN LAB CAMPYLOBACTER PCR Negative Negative [facility]ORY SERVICES Shiga Toxin PCR Negative Negative [facility] Specimen Feces - Specimen from rectum (specimen) Performing Organization Address City/State/ZIP Code Phon e Number [facility] [address] [place] [address] SERVICES documented in this encounter Visit Diagnoses Not on filedocumented in this encounter Care Teams Violent Crimes Detective Relationship Specialty Start Date End Date Dobbertin, Annette M, MD PCP - General 09/30/16 [address] [place] [address] Annette Duncan MD 06/19/[address] [place] [phone] documented as of this encounter
--- OUTSIDE RECORDS SUMMARY | 2022-02-01 03:22 | XMS_ITS | Encounter Summary ---
:1970 Author Organization [facility] Address [address] [place] [address] Care Team Providers Name Role Phone Annette Duncan MD Primary Care Provider Annette Duncan MD Unavailable Encounter Details Date Type Department Care Team Description 07/12/2021 Lab Requisition [facility] Outr Resulting Lab, Pathology & Laboratory Provider [facility] [address] [place], [place] [address] Social History Tobacco Use Types Packs/Day Years Used Date Never Assessed Sex Assigned at Date Recorded Not on file documented as of this encounter Plan of Treatment Not on filedocumented as of this encounter Procedures Procedure Name Priority Date/Time Associated Diagnosis Comme nts ANTI NUCLEAR AB Routine 07/12/2021 9:13 EST Resul ts for this (SELINA), IFA procedure are i n the results section. documented in this encounter Results ANTI NUCLEAR AB (SELINA), IFA (07/12/2021 9:13 EST) SELINA Interpretation NegativeComment: Negative [facility] No titer LABORATORY SERVICES performed, SELINA Screen is negative. Specimen Blood - Venous blood (substance) Narrative [facility] - 07/13/2021 14:12 EST Results were obtained with the INOVA NOV A Lite HEp-2 SELINA Kit by indirect immunofluorescence. Performing Organization Address City/State/ZIP Code Phon e Number [facility] [address] [place] [address] SERVICES documented in this encounter Visit Diagnoses Not on filedocumented in this encounter Care Teams Mobile Pet Groomer Relationship Specialty Start Date End Date Annette Duncan MD PCP - General 09/30/16 [address] [place] [address] Annette Duncan MD 06/19/[address] [place] [phone] documented as of this encounter
--- OUTSIDE RECORDS SUMMARY | 2022-02-01 03:22 | XMS_ITS | Encounter Summary ---
:1970 Author Organization [facility] Address [address] [place] [address] Care Team Providers Name Role Phone Annette Duncan MD Primary Care Provider Annette Duncan MD Unavailable Encounter Details Date Type Department Care Team Description 07/05/2020 Lab Requisition [facility] Outr Resulting Lab, Pathology & Laboratory Provider [facility] [address] [place] [address] Social History Tobacco Use Types Packs/Day Years Used Date Never Assessed Sex Assigned at Date Recorded Not on file documented as of this encounter Plan of Treatment Not on filedocumented as of this encounter Procedures Procedure Name Priority Date/Time Associated Comments Diagnosis DO NOT ORDER Today 07/05/2020 8:55 EST Results for this STANDALONE - [facility] procedure are in COVID TEST the results section. COVID-19 TESTING Routine 07/05/2020 8:55 EST Resu lts for this procedure are i n the results section. documented in this encounter Results DO NOT ORDER STANDALONE - BROAD COVID TEST (07/05/2020 8:55 EST) COVID-19 rt-PCR NEGATIVE Negative [facility] Result Comment: LABORATORY 2019-novel Coronavirus (2019 -nCoV) not detected by the qRT-PCR assay. Consider testing for other respiratory viruses or re-collecting for 2019-nCoV testing. Note: Optimum timing for peak viral levels du ring infections caused by 20 -nCoV have not been determined. Collection of multiple specimens from the same patient may be necessary to detect the virus. Limitations Positive results are indicat kong of active infection with SARS-CoV-2 but do not rule out bacterial infection or co-infection with other viruses. The agent detected may not be the definite cause of diseas e. In addition, detection of viral RNA may not indicate the presence of infectious virus or that SARS-CoV-2 is the causative agent for clinical symptoms. Negative results do not prec lude SARS-CoV-2 infection and should not be used as the sole basis for patient management decisions. Negative results must be combined with clinical observations, patient his tory, and epidemiological in formation. False negative results may also occur if amplification inhibitors are present in the specimen or if inadequate numbers of organisms are present in the specimen. Op timum specimen types and karen ing for peak viral levels during infections caused by SARS-CoV-2 have not been fully determined. Collection of multiple specimens (types and time points) from the same patient may be necessary to detect the virus. The test was validated for u with upper respiratory specimens obtained via nasopharyngeal or oropharyngeal swabs in VTM, UTM, M4, M5, M6, saline, and MTM media. The performance of this test has not be en established for other spe cimens. Specimens collected using other FDA recommended Specimen Collection Materials listed in the FDA COVID-19 Diagnostic Technologies communication (October 28, 2019) are pr ocessed with the caveat that they were not all validated for use with this test and the result must be interpreted in this context. Furthermore, a false negative results may occur if a specimen is improperly collected, transported or handled. If the virus mutates in the RT-PCR target region, SARS-CoV-2 may not be detected or may be detected less predictably. Inhibitors or other types of interference may produce a false negative result. An interference study evaluating the effect of common cold medications was not performed. This test is not FDA-cleared but its performance characteristics were established by our CLIA-certified, CAP-accredited, high complexity laboratory in accordance with CLIA regulations, College of [employer] an Pathologists (CAP) guidel robb (Oct 21, 2019), and FDA guidance (Oct 02, 2019). This test is only for use un jean paul the Food and Drug Administration's Emergency Use Authorization. Specimen Swab - Entire nasopharynx (body structur e) Performing Organization Address City/State/ZIP Code Phon e Number [facility] [place] COVID-19 TESTING (07/05/2020 8:55 EST) COVID-19 rt-PCR NEGATIVE Negative [facility] Result Comment: LABORATORY 2019-novel Coronavirus (2019 -nCoV) not detected by the qRT-PCR assay. Consider testing for other respiratory viruses or re-collecting for 2019-nCoV testing. Note: Optimum timing for peak viral levels du ring infections caused by 20 -nCoV have not been determined. Collection of multiple specimens from the same patient may be necessary to detect the virus. Limitations Positive results are indicat kong of active infection with SARS-CoV-2 but do not rule out bacterial infection or co-infection with other viruses. The agent detected may not be the definite cause of diseas e. In addition, detection of viral RNA may not indicate the presence of infectious virus or that SARS-CoV-2 is the causative agent for clinical symptoms. Negative results do not prec lude SARS-CoV-2 infection and should not be used as the sole basis for patient management decisions. Negative results must be combined with clinical observations, patient his tory, and epidemiological in formation. False negative results may also occur if amplification inhibitors are present in the specimen or if inadequate numbers of organisms are present in the specimen. Op timum specimen types and karen ing for peak viral levels during infections caused by SARS-CoV-2 have not been fully determined. Collection of multiple specimens (types and time points) from the same patient may be necessary to detect the virus. The test was validated for [facility] with upper respiratory specimens obtained via nasopharyngeal or oropharyngeal swabs in VTM, UTM, M4, M5, M6, saline, and MTM media. The performance of this test has not be en established for other [facility]. Specimens collected using other FDA recommended Specimen Collection Materials listed in the FDA COVID-19 Diagnostic [employer] communication (October 28, 2019) are pr ocessed with the caveat that they were not all validated for use with this test and the result must be interpreted in this context. Furthermore, a false negative results may occur if a specimen is improperly collected, transported or handled. If the virus mutates in the RT-PCR target region, SARS-CoV-2 may not be detected or may be detected less predictably. Inhibitors or other types of interference may produce a false negative result. An interference study evaluating the effect of common cold medications was not performed. This test is not FDA-cleared but its performance characteristics were established by our CLIA-certified, CAP-accredited, high complexity laboratory in accordance with CLIA regulations, College of [employer] an Pathologists (CAP) guidel robb (Oct 21, 2019), and FDA guidance (Oct 02, 2019). This test is only for use un jean paul the Food and Drug Administration's Emergency Use Authorization. Performing Lab [facility] LABORATORY SERVICES Specimen Swab Performing Organization Address City/State/[facility] Code Phon e Number [facility] [address] [place] [address] SERVICES [facility] [place] documented in this encounter Visit Diagnoses Not on filedocumented in this encounter Care Teams Small Products I Assembler Relationship Specialty Start Date End Date Annette Duncan MD PCP - General 09/30/16 [address] [place], [place] [address] Annette Duncan MD 06/19/[address] [place] [id number] documented as of this encounter
--- OUTSIDE RECORDS SUMMARY | 2022-02-01 03:22 | XMS_ITS | Clinical Summary ---
:1970 Author Organization [facility] Address [address] [place] [address] Care Team Providers Name Role Phone Annette Duncan MD Primary Care Provider Annette Duncan MD Unavailable Social History Tobacco Use Types Packs/Day Years Used Date Never Assessed Sex Assigned at Date Recorded Not on file Plan of Treatment Health Maintenance Due Date Last Done Comments Hepatitis C Screen 1970 COVID-19 Vaccine (1) 1977 Insurance Payer Benefit Plan / Subscriber ID Effective Dates Phone Addre ss Type Group UMR UMR [id number] 2020-Present [address] [place] [address] Guarantor Name Account Type Relation to Date of Phone Billing Patient Address Lynne Henderson Personal/Family Self 1970 [address] [facility] (Home) [employer] [employer] [phone] [place] [address] (Work) Lynne Henderson Personal/Family Self 1970 [address] [facility] (Home) [employer] [phone] [place] [address] (Work) Lynne Henderson Personal/Family Self 1970 [address] [facility] (Home) [employer] [phone] [place] [address] (Work) Lynne Henderson Personal/Family Self 1970 [address] [facility] (Home) [place] [address] (Work) Lynne Henderson Personal/Family Self 1970 [address] [facility] (Home) [place] [address] (Work) Lynne Henderson Personal/Family Self 1970 [address] [facility] (Home) [facility] [place] [address] (Work) Lynne Henderson Personal/Family Self 1970 [address] [facility] (Home) [place] [address] (Work) Lynne Henderson Personal/Family Self 1970 [address] [facility] (Home) [place] [address] (Work) Care Teams Metal Furniture Assembly Supervisor Relationship Specialty Start Date End Date Annette Duncan MD PCP - General 09/30/16 [address] [place], [place] [address] Annette Duncan MD 06/19/[address] [place] [address]
--- OUTSIDE RECORDS SUMMARY | 2022-02-01 03:22 | XMS_ITS | Encounter Summary ---
:[address] [facility] Address [address] [place] [address] Care Team Providers Name Role Phone Annette Duncan MD Primary Care Provider Annette Duncan MD Unavailable Encounter Details Date Type Department Care Team Description 07/20/2021 Lab Requisition [facility] Kimberli Macdonald for other Pathology & M, DO general examination Laboratory Medicine - [address] [facility] [address] [place] [phone] Social History Tobacco Use Types Packs/Day Years Used Date Never Assessed Sex Assigned at Date Recorded Not on file documented as of this encounter Plan of Treatment Not on filedocumented as of this encounter Procedures Procedure Name Priority Date/Time Associated Diagnosis Comme nts SURGICAL PATHOLOGY Today 07/20/2021 9:40 EST Encounter for o ther Results for this general examination procedur e are in the results section. documented in this encounter Results SURGICAL PATHOLOGY (07/20/2021 9:40 EST) Note to Patient The following [facility] MEDICAL pathology results CENTER have been interpreted LABORATORY by your pathologist SERVICES and may be available to you before your health provider has had the opportunity to review them. Please allow time for your provider to receive these results and explore management options, if applicable. Final Diagnosis A. COLON, 30 CM, BIOPSY: [facility] MEDICAL - Colonic mucosa with no specific pathologic features. CENTER LABORATORY SERVICES Attestation By the signature [facility] MEDICAL Electronica lly below, the attending CENTER signed by Letty, physician certifies LABORATORY Clemente Greene MD that they have 1) SERVICES on 021 at personally conducted 1642 a gross and/or microscopic examination of the described specimen(s), and/or personally interpreted the results of laboratory testing of the described specimen(s), and 2) personally rendered or confirmed the above diagnosis. Clinical History Unintentional weight [facility] MEDICAL loss, diarrhea [facility] Gross Description A. [facility] MEDICAL Received in formalin evelyn d with proper patient identification (initials B, C) and biopsy at 30 cm is a single iqbal tissue (0.2 x 0.2 x 0.1 cm). Submitted intact in A1. CENTER LABORATORY RON MIGUEL([facility]) 07/21/2021 14:26 S CARLOS Performing Lab [facility] LABORATORY SERVICES Scanned Images [facility] LABORATORY SERVICES Specimen Tissue - Entire colon (body structure) Performing Organization Address City/State/ZIP Code Phon e Number [facility] [address] [place] [address] SERVICES documented in this encounter Visit Diagnoses Diagnosis Encounter for other general examination documented in this encounter Care Teams Rubber Washer Relationship Specialty Start Date End Date Annette Duncan MD PCP - General 09/30/16 [address] [place], [place] [address] Annette Duncan MD 06/19/[address] [place] [phone] documented as of this encounter
--- OUTSIDE RECORDS SUMMARY | 2022-02-01 03:22 | XMS_ITS | Encounter Summary ---
:1970 Author Organization [facility] Address [address] [place] [address] Care Team Providers Name Role Phone Unknown, Provider Primary Care Provider Encounter Details Date Type Department Care Team Description 03/08/2011 Results Only [facility] Tony Silveira MD Laboratory Services - [address] [place] [address] [place] [address] [phone] Social History Tobacco Use Types Packs/Day Years Used Date Never Assessed Sex Assigned at Date Recorded Not on file documented as of this encounter Plan of Treatment Not on filedocumented as of this encounter Procedures Procedure Name Priority Date/Time Associated Diagnosis Comme nts SURGICAL PATHOLOGY Routine 03/08/2011 0:00 EDT Re sults for this procedure are i n the results section. documented in this encounter Results SURGICAL PATHOLOGY (03/08/2011 0:00 EDT) Pathology Report: SURGICAL PATHOLOGY REPORT ? [facility] Reports generated via electr [employer] interface contain original data; ? LAB however they are lacking the format of the original report. ? Caution should be taken when reading/interpreting unformatted reports. ? Name: ? DIANE, LAURA NE ? Accession #: ? [id number] ? : ? 1970 (Age: 40) ??F ? Collec t Date: ? 03/08/2011 ? Location: ? [facility] ? Re ceive Date: ? 03/09/2011 ? Provider: SAYRA SILVEIRA MD ? Copy to: EDOUARD M DOMILAIN M D ? Final Pathologic Diagnosis: ? Breast, right, 10 o'c lock, 8 cm out from nipple, ultrasound guided needle ?? core biopsies: ? 1. ?Benign nodu lar fibrocytic change including: ?- Dense inter lobular fibrosis. ? - Adenosis. ? Document reviewed and electr onically signed by: ? OVI RAMIREZ MD ? Report ??Date: 03/13/2011 16 :05 ? By the signature above, the attending physician certifies that he/she has ? personally conducted a gross and/or microscopic examination of the described ? specimens and rendered or co nfirmed the above diagnosis. ? Specimen(s) Received: ? Rt breast, 10 o'clock , 8 cm from nipple, ultrasound guided core ? Clinical History: ? U/S abn ? Gross Description: ? Received in formalin labelled Keithan, Lynne and right breast are ?? five yellow and white fibrof atty tissue cores ranging from 0.7 to 1.3 cm in ? length by 0.1 cm in diameter . ??The specimens are entirely submitted as (A1) and (A2). ??(Ian Slade)/alyse ? Time in formalin: ??[place] 5 , 2010, at 14:45 ? Time out of formalin: ??Augu st 8, 2010, at 13:00 ? End of Report ? Specimen Performing Organization Address City/State/ZIP Code Phon e Number [facility] [address] [place] [address] SERVICES [facility] [address] [place] [address] documented in this encounter Visit Diagnoses Not on filedocumented in this encounter Care Teams Auditor/Quality Relationship Specialty Start Date End Date Unknown, Provider, PCP - General 12/06/08 07/18/11 documented as of this encounter
--- OUTSIDE RECORDS SUMMARY | 2022-02-01 03:22 | XMS_ITS ---
:1970 Author Care Team Providers Name Role Phone EDOUARD POLLARD Primary Care Provider [phone] Allergies Code Code System Name Reaction Severity Status Onset 2670 RxNorm Codeine ? ? Active ? Medications Name Status Start Date Stop Date ? ? albuterol sulf 90 mcg/actuation breath activated powder inhaler, sensor Active ? Not available Inhale 2 puffs every 4 hours by inhalation route. Allergy Relief (fluticasone) 50 mcg/actuation nasal spray,suspen oralia Active ? Not available Paradise 1 spray every day by intranasal route. Blood Glucose Monitoring kit Active ? Not available cyclobenzaprine 5 mg tablet Active ? Not available Take 1 tablet 3 times a day by oral route. doxycycline hyclate 100 mg tablet Completed ? 01/04/2020 Take 1 tablet twice a day by oral route. estradiol 0.5 mg tablet Active ? Not avai lable Take 1 tablet every day by oral route. ibuprofen 600 mg tablet Active ? Not avai lable Take 1 tablet 3 times a day by oral route. lancets 28 gauge Active ? Not available lisinopril 20 mg tablet Active ? Not avai lable Take 1 tablet every day by oral route. loratadine 10 mg tablet Active ? Not avai lable Take 1 tablet every day by oral route. lorazepam 0.5 mg tablet Active ? Not avai lable Take 2 tablets 3 times a day by oral route. metformin 1,000 mg tablet Active ? Not av ailable Take 1 tablet twice a day by oral route. multivitamin Active ? Not available ranitidine 75 mg tablet Active ? Not avai lable Take 1 tablet twice a day by oral route. sitagliptin 100 mg tablet Completed ? 2019 Take 1 tablet every day by oral route. venlafaxine 75 mg tablet Active ? Not gigi ilable Take 1 tablet twice a day by oral route. zolpidem 5 mg tablet Completed ? 03/07/2020 take 1-2 PO night of the sleep study if needed Problems Name Status Onset Date Source ? Diabetes Mellitus Active 09/22/2019 ? Carcinoid Syndrome Active 09/22/2019 ? Anemia Active 09/22/2019 ? Anxiety Active 09/22/2019 ? Depressive Disorder Active 09/22/2019 ? Sensorineural Hearing Loss Active 09/22/2019 ? Essential Hypertension Active 09/22/2019 ? Bronchitis Active 09/22/2019 ? Endometritis Active 09/22/2019 ? Dysmenorrhea Active 09/22/2019 ? Abnormal Uterine Bleeding Active 09/22/2019 ? Shoulder Pain Active 09/22/2019 ? Pain in the Coccyx Active 09/22/2019 ? Epicondylitis Active 09/22/2019 ? Plantar Fasciitis Active 09/22/2019 ? Fatigue Active 09/22/2019 ? Abdominal Pain Active 09/22/2019 ? History of Calculus of Kidney Active 09/22/2019 ? Breast Lump Active 09/22/2019 ? Restless Legs Active 10/07/2019 ? Snoring Active 10/07/2019 ? Hyperlipidemia Active ? ? Obstructive Sleep Apnea Syndrome Active ? ? Procedures Date Name Performed by ? ? Appendectomy Information not avai lable 10/07/2019 Polysomnogram Information not avai lable Results Lab Results None recorded. Past Encounters 05/15/2021 Obstructive Sleep Apnea Syndrome Leighann Calixto PLATFORM MAN: [address] [place] [phone], Ph. Social History Tobacco Smoking Status Never Smoker Vaccine List Vaccine Type influenza, seasonal, injectable 06/02/2015 06/18/2016 Td (adult), adsorbed 11/19/2011 06/05/2015 Tdap 11/19/2011 Plan of Care Reminders Provider Appointments None recorded. ? ? Lab None recorded. ? ? Referral None recorded. ? ? Procedures None recorded. ? ? Surgeries None recorded. ? ? Imaging None recorded. ? ? Vitals 03/07/2020 08:00AM Office 30 Height Weight BMI 162.56 cm 88.45 kg 33.5 kg/m2 01/04/2020 08:30AM Office 30 Height Weight BMI Blood Pressure 162.56 cm 88.45 kg 33.5 kg/m2 133/84 mm[Hg] 10/07/2019 08:00AM New Patient 45 Height Weight BMI Blood Pressure 162.56 cm 88.9 kg 33.6 kg/m2 118/70 mm[Hg]
--- OUTSIDE RECORDS SUMMARY | 2022-02-01 03:23 | XMS_ITS | Encounter Summary ---
:1970 Author Organization [facility] Address [address] [place] [address] Care Team Providers Name Role Phone Unknown, Provider Primary Care Provider Encounter Details Date Type Department Care Team Description 03/07/2008 Before PRISM [facility] - Annette Duncan, Converted Visit Hue herron MD (Hue) [address] [address] [place] [phone] (Wo rk) Social History Tobacco Use Types Packs/Day Years Used Date Never Assessed Sex Assigned at Date Recorded Not on file documented as of this encounter Plan of Treatment Not on filedocumented as of this encounter Procedures Procedure Name Priority Date/Time Associated Comments Diagnosis HPV DETECTION, HIGH Routine 03/07/2008 14:45 Resu lts for this RISK TYPES EDT procedure are i n the results section. CYTOPATHOLOGY Routine 03/07/2008 0:00 Results for this EDT procedure are i n the results section. documented in this encounter Results HUMAN PAPILLOMA VIRUS DNA TEST (03/07/2008 14:45 EDT) Specimen Description Cervix, ThinPrep [facility] L AB vial Result Negative for HPV [facility] types 16, 18, 31, 33, 35, 39, 45, 51, 52, 56, 58, 59, and 68. Report Status Final [facility] [id number] Specimen Performing Organization Address City/State/ZIP Code Phon e Number [facility] [address] [place] [address] SERVICES [facility] [address] [place] [address] CYTOPATHOLOGY (03/07/2008 0:00 EDT) Pathology Report: CYTOPATHOLOGY REPORT ? ALO POOL EN ? LAB Reports generated via electr [email or web address] interface contain original data; ? however they are lacking the format of the original report. ? Caution should be taken when reading/interpreting unformatted reports. ? Name: ? LAURA CONTRERAS ? Accession #: ? [id number] ? : ? 1970 (Age: 37) ??F ?Collect Date: ? 03/07/2008 ? Location: ? [facility] ? Receive Date: ? 03/08/2008 ? Provider: ?ANNETTE M DO BBERTIN MD ? Copy to: ? Specimen/Source: ? ThinPrep Pap Test, Cervix/Endocervix, processed on [employer] ThinPrep Imaging System, wit h manual evaluation ? Last Menstrual Period: ? 07/10/08 ? Other: ? HPVDX - HPV testing requeste d regardless of diagnosis on current ThinPrep Pap ?? test. ? SPECIMEN ADEQUACY ? Satisfactory for Eval uation ? - transformation zone compon ent absent ? GENERAL CATEGORIZATION ? Negative for Intraepi thelial Lesion or Malignancy ? Document reviewed and electr onically signed by: ? Lynan [place], [place](ASCP) ? Report Date: ??08/07/ 2008 10:26 ? End of Report ? Specimen Performing Organization Address City/State/ZIP Code Phon e Number [facility] [address] [place] [address] SERVICES [facility] [address] [place] [address] documented in this encounter Visit Diagnoses Not on filedocumented in this encounter Care Teams Religious Leader Relationship Specialty Start Date End Date Unknown, Provider, PCP - General 12/06/08 07/18/11 documented as of this encounter
--- OUTSIDE RECORDS SUMMARY | 2022-02-01 03:23 | XMS_ITS | Encounter Summary ---
:1970 Author Organization [facility] Address [address] [place] [id number] Care Team Providers Name Role Phone Unknown, Provider Primary Care Provider Encounter Details Date Type Department Care Team Description 10/09/2010 Results Only [facility] Koki Duncan MD Laboratory Services - [address] [place] [address] [address] [place] [phone] (Wo rk) Social History Tobacco Use Types Packs/Day Years Used Date Never Assessed Sex Assigned at Date Recorded Not on file documented as of this encounter Plan of Treatment Not on filedocumented as of this encounter Procedures Procedure Name Priority Date/Time Associated Diagnosis Comme nts CYTOPATHOLOGY Routine 10/09/2010 0:00 EST Results for this procedure are i n the results section . documented in this encounter Results CYTOPATHOLOGY (10/09/2010 0:00 EST) Pathology Report: CYTOPATHOLOGY REPORT ? PRAJ[facility]I ALL EN ? LAB Reports generated via electr onic interface contain original data; ? however they are lacking the format of the original report. ? Caution should be taken when reading/interpreting unformatted reports. ? Name: ? LAURA CONTRERAS ? Accession #: ? [id number] ? : ? 1970 (Age: 39) ??F ?Collect Date: ? 10/09/2010 ? Location: ? [facility] ? R eceive Date: ? 10/11/2010 ? Provider: EDOUARD M DOBBERTIN MD ? Copy to: ? Final Report ? SPECIMEN ADEQUACY ? Satisfactory for Eval uation ? - transformation zone compon ent absent ? GENERAL CATEGORIZATION ? Negative for Intraepi thelial Lesion or Malignancy ? Last Menstural Period: 10/04 ? Specimen/Source: ??Pap Test, Endocervix, ThinPrep Imaging System with manual ? evaluation ? Document reviewed and electr onically signed by: ? Che Hassan, SCT( ASCP) ? Report ??Date: 10/12/ 2010 13:54 ? HPV with Pap Test ? Date Ordered: ? 0 10/12/2010 ? Status: ?? Signed Out ?Date Complete: ? 10/17/2010 ? By: ??System Interface ? Date Reported: ? 10/17/2010 ? Interpretation ? RESULT: Negative for HPV typ es 16, 18, 31, 33, 35, 39, 45, 51, 52, ? 56, 58, 59, and 68. ? Comments ? Document reviewed and electr onically signed by: ? System Interface ? Report date: 03/16/20 11 ? By the signature above, the attending physician certifies that he/she has ? personally conducted a gross and/or microscopic examination of the described ? specimens and rendered or co nfirmed the above diagnosis. ? End of Report ? Specimen Performing Organization Address City/State/ZIP Code Phon e Number [facility] [address] [place] [address] SERVICES [facility] [address] [place] [address] documented in this encounter Visit Diagnoses Not on filedocumented in this encounter Care Teams Bioengineer Relationship Specialty Start Date End Date Unknown, Provider, PCP - General 5/5/09 12/15/11 documented as of this encounter
--- OUTSIDE RECORDS SUMMARY | 2022-02-01 03:23 | XMS_ITS | Encounter Summary ---
:1970 Author Organization [facility] Address [address] [place] [address] Care Team Providers Name Role Phone Unknown, Provider Primary Care Provider Encounter Details Date Type Department Care Team Description 10/28/2002 Results Only [facility] - Jesus Manuel Silveira MD Maple conversion [address] [facility] [address] [id number] [phone] Social History Tobacco Use Types Packs/Day Years Used Date Never Assessed Sex Assigned at Date Recorded Not on file documented as of this encounter Plan of Treatment Not on filedocumented as of this encounter Procedures Procedure Name Priority Date/Time Associated Diagnosis Comme nts SURGICAL PATHOLOGY Routine 10/28/2002 0:00 EST Re sults for this procedure are i n the results section. documented in this encounter Results SURGICAL PATHOLOGY (10/28/2002 0:00 EST) Pathology Report: SURGICAL PATHOLOGY REPORT [facility] Reports generated via electronic interface contain charisse ginal data; LAB however they are lacking the format of the original re port. Caution should be taken when reading/interpreting unfo rmatted reports. Name: ? LAURA CONTRERAS ? Accession #: ? [id number] ? : ? 1970 (Age: 31) ??F ? Collect Date: ? 10/28/2002 ? Location: ? [facility] ? Receive Date: ? 003 ? Provider: JESUS MANUEL SILVEIRA MD Copy to: CHARLEY SULLIVAN MD ? Final Pathologic Diagnosis: ? Appendix, appendectomy: 1. ?Distal appendix with tubular carcinoi d. See comment. ? - Carcinoid does not penetrate serosa. - Proximal resection margin negative for carcinoid. 2. ?No evidence of acute appendicitis. Comment: ? The entire appendix was submitted for evaluatio n. 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 Immunoperoxidase stains were performed which show the tumor to be positive for chromogranin (LK2H10, Hybritech) an d negative for CK 20 (K520.8, Dako). These findings confirm the neuroendocrine natur e of the lesion. (Dr. Lund) Document reviewed and electronically signed by: ANDREW LUND MD Report ??Date: 11/05/2002 16:23 By the signature above, the attending physician certif ies that he/she has personally conducted a gross and/or microscopic examin ation of the described specimens and rendered or confirmed the above diagnosi s. Specimen(s) Received: ? Appendix Clinical History: ? RLQ pain ??N/V, R/O appendicitis Gross Description: ? Received in formalin labelled Keithan and appendix is the product of an appendectomy with a moderate amount of attached mesoappendix. ??The specimen is serially sectioned to reveal a focally hemorrhagic appendiceal wall which varies from 0.1 to 0.3 cm in thickn ess. ??No evidence of perforation is identified nor are any fecaliths identified. ??The spec imen is entirely submitted as follows: BLOCK FLORES A1 ?Bisected distal 1.0 cm A2 ?Two represe ntative sections including section taken immediately adjacent to stapled margin A3-A6 ?Sections of the appendix ?? (Dr. Darinel resendiz-SUE)/[facility] End of Report Specimen Performing Organization Address City/State/[facility] Code Phon e Number [facility] [address] [place] [address] SERVICES [facility] [address] [place] [address] documented in this encounter Visit Diagnoses Not on filedocumented in this encounter Care Teams Airline Manager Relationship Specialty Start Date End Date Unknown, Provider, PCP - General 12/06/08 07/18/11 documented as of this encounter
--- OUTSIDE RECORDS SUMMARY | 2022-02-01 03:23 | XMS_ITS | Encounter Summary ---
:[address] [facility] Address [address] [place] [address] Care Team Providers Name Role Phone Unknown, Provider Primary Care Provider Encounter Details Date Type Department Care Team Description 02/19/2007 Results Only [facility] - Annette Duncan MD Maple conversion [address] [facility] [address] [place], [place] [id number] [place] [phone] (Wo rk) Social History Tobacco Use Types Packs/Day Years Used Date Never Assessed Sex Assigned at Date Recorded Not on file documented as of this encounter Plan of Treatment Not on filedocumented as of this encounter Procedures Procedure Name Priority Date/Time Associated Diagnosis Comme nts CYTOPATHOLOGY Routine 02/19/2007 0:00 EDT Results for this procedure are i n the results section . documented in this encounter Results CYTOPATHOLOGY (02/19/2007 0:00 EDT) Pathology Report: CYTOPATHOLOGY REPORT [facility] Reports generated via electronic interface contain charisse ginal data; however they are lacking the format of the original re port. Caution should be taken when reading/interpreting unfo rmatted reports. Name: ? HARRY CONTRERAS ? Accession #: ? [id number] : ? 1970 (Age: 36) ??F ?Collect Date: ? 02/01 Location: ? [facility] ? Receive Date : ? 02/23/2007 Provider: ?ANNETTE DUNCAN MD Copy to: ? Specimen/Source: ?ThinPrep Pap Test, E ndocervix, processed on [email or web address] ThinPrep Imaging System, with manual evaluation Last Menstrual Period: ? 02/10/07 Hormonal/Contraceptive Status: ? Yes Other: ? HPVA - HPV testing requested if ASC-US on the current ThinPrep Pap test. ? SPECIMEN ADEQUACY ? Satisfactory for Evaluation - transformation zone component present GENERAL CATEGORIZATION ? Negative for Intraepithelial Lesion or Malignan cy ? Document reviewed and electronically signed by: ? Della Ellison [facility] [[email or web address]](ASCP) ? Report Date: ??02/26/2007 15:57 End of Report Specimen Performing Organization Address City/State/ZIP Code Phon e Number [facility] [address] [place] [address] SERVICES [facility] [address] [place] [address] documented in this encounter Visit Diagnoses Not on filedocumented in this encounter Care Teams Shaker Tender Relationship Specialty Start Date End Date Unknown, Provider, PCP - General 12/06/08 07/18/11 documented as of this encounter
[2022-02-01 14:42] LABS: Hemoglobin A1C 6.9 % (<5.7)
[2022-02-04 11:16] LABS: Lyme Ab w Rflx to Lyme Confirm Negative (Negative)
[2022-02-05 17:07] LABS: Anaplasma phagocytophilum Negative (Negative); B. miyamotoi PCR Negative (Negative); Babesia divergens/MO-1 Negative (Negative); Babesia duncani Negative (Negative); Babesia microti Negative (Negative); Ehrlichia chaffeensis Negative (Negative); Ehrlichia ewingii/canis Negative (Negative); Ehrlichia muris eauclairensis Negative (Negative)
== END 2022-02-01 03:18 | disposition home or self-care (01) ==
PROVIDERS: PCP Family Medicine; Visit Provider Family Medicine
DX: E11.9 Type 2 diabetes mellitus without complications (principal); T14.8XXA Other injury of unspecified body region, initial encounter; W57.XXXA Bitten or stung by nonvenomous insect and other nonvenomous arthropods, initial encounter
CPT/HCPCS: 36415; 87798; 83036; 86618

== ENCOUNTER 2022-02-27 04:04 | Outpatient (CLI) | payer OTHER, SELFPAY ==
[2022-02-27 13:32] LABS: HCT 39.1 % (36.0-46.0); HGB 13.4 g/dL (11.2-15.7); MCH 27.7 pg (27.0-33.0); MCHC 34.3 % (32.0-36.0); MCV 81 fL (80-95); MPV 9.4 fL (8.0-11.0); Platelet Count 321 10^3/uL (130-400); RBC 4.84 10^6/uL (3.93-5.22); RDW 11.4 % (11.7-14.6); RDW-SD 33.3 fL; WBC 8.78 10^3/uL (4.4-10.8)
[2022-02-27 14:18] LABS: COMMENT (LAB VIEW ONLY) 128.73 mg/dL; Microalb ug/mg Crea 9.3 ug/mg Cr
[2022-02-27 14:19] LABS: ALT 6 U/L (14-59); AST 14 U/L (15-37); Alkaline Phosphatase 84 U/L (46-116); Anion Gap 9.5 mmol/L (3-11); BUN 13 mg/dL (7-18); Bilirubin, Total 0.4 mg/dL (0.2-1.0); CO2 28.5 mmol/L (21.0-32.0); CREATININE 0.7 mg/dL (0.55-1.02); Calcium 9.9 mg/dL (8.5-10.1); Chloride 100 mmol/L (98-107); Glucose 120 mg/dL (74-106); Potassium 3.6 mmol/L (3.5-5.1); Sodium 138 mmol/L (136-145); Total Protein 7.6 g/dL (6.4-8.2)
[2022-02-28 04:43] LABS: Vitamin D 25 Total 48.8 ng/mL (30-100)
== END 2022-02-27 04:05 | disposition home or self-care (01) ==
PROVIDERS: PCP Family Medicine; Visit Provider Family Medicine
DX: E55.9 Vitamin D deficiency, unspecified (principal); E11.9 Type 2 diabetes mellitus without complications; R19.7 Diarrhea, unspecified; E27.9 Disorder of adrenal gland, unspecified
CPT/HCPCS: 36415; 80053; 82306; 85027; 82043; 82570; 83036

== ENCOUNTER 2022-03-04 03:31 | Outpatient (CLI) | payer OTHER, SELFPAY ==
[2022-03-05 17:53] LABS: Adrenocorticotropic Hormone, P 51 pg/mL
[2022-03-06 22:00] LABS: 17-Hydroxyprogesterone <40 ng/dL
[2022-03-08 14:36] LABS: Dehydroepiandrosterone (DHEA) 0.8 ng/mL (<8.0)
== END 2022-03-04 03:32 | disposition home or self-care (01) ==
PROVIDERS: PCP Family Medicine; Visit Provider Family Medicine
DX: E27.8 Other specified disorders of adrenal gland (principal); E27.9 Disorder of adrenal gland, unspecified; R19.7 Diarrhea, unspecified
CPT/HCPCS: 36415; 82533; 82024; 82088; 82626; 83498

== ENCOUNTER → 2022-03-06 01:27 | Outpatient (CLI) | payer OTHER, SELFPAY ==
--- NOTE | 2022-03-06 12:43 | DI.MAMMO_ITS ---
Exam(s) MAMMO SCREENING EXAM: MAMMO SCREENING CLINICAL HISTORY: screening,z12.39 TECHNIQUE: Mammograms were interpreted according to the usual protocol including computer analysis w [employer] CAD system, tomosynthesis and C-view imaging. COMPARISON: 2013 through 2019 FINDINGS: The breasts are composed of mainly fatty density , Breast Density category A. No suspicious masses or suspicious microcalcifications are seen. A biopsy marker clip is again noted in the upper outer quadrant of the right breast. No skin thickening or abnormal axillary lymph nodes are seen. There has been no significant change from prior exams. IMPRESSION: BI-RADS Category 1, Negative mammogram Yearly screening mammography is recommended. Breast Density - Category A, fatty density. A negative radiographic report should not delay biopsy if a dominant or clinically suspicious mass is present. Up to ten percent of cancers are not identified on mammography. A negative report may reinforce clinical impression. Adenosis and dense breasts may obscure an underlying neoplasm. False positive reports average 6 to 10%. Patient will receive a letter notifying them of these results.
== END ==
PROVIDERS: PCP Family Medicine; Visit Provider Family Medicine
DX: Z12.31 Encounter for screening mammogram for malignant neoplasm of breast (principal)
CPT/HCPCS: 77063; 77067

== ENCOUNTER → 2022-07-16 01:15 | Outpatient (CLI) | payer OTHER, SELFPAY ==
--- NOTE | 2022-07-16 07:30 | DI.RAD_ITS ---
Exam(s) XR CERVICAL SPINE COMP 4-5V EXAM: XR CERVICAL SPINE COMP 4-5V CLINICAL HISTORY: neck pain,M54.2. TECHNIQUE: 2D digital imaging was performed. Seven images were obtained. AP, odontoid, lateral and b ilateral oblique images were obtained. COMPARISON: CR CHEST 2 VIEWS PA,LAT from 08/18/2012 CR XR CHEST 2V PA LATERAL from 07/30/2018 FINDINGS: The odontoid is intact. The lateral masses are well aligned. There is normal alignment of the cervi crystal spine. The vertebral body heights are well maintained. There is mild spurring seen at C5-C6. Th e posterior elements are well maintained. No acute fracture or subluxation is present. No significan t neural foraminal stenosis is present. The cervical thoracic junction is well maintained. Well pradip icated old osseous densities are seen in the soft tissues posterior to the spine. These are chronic. Lung apices are clear. IMPRESSION: Minimal degenerative changes in the cervical spine. DATA REPOSITORY: RADIATION DOSE DELIVERED:
== END ==
PROVIDERS: PCP Family Medicine; Visit Provider Family Medicine
DX: M47.812 Spondylosis without myelopathy or radiculopathy, cervical region (principal)
CPT/HCPCS: 72050

== ENCOUNTER → 2022-07-31 09:43 | Outpatient (CLI) | payer OTHER, SELFPAY ==
--- NOTE | 2022-07-31 09:15 | DI.RAD_ITS ---
Exam(s) XR CHEST 2V PA LATERAL EXAM: XR CHEST 2V PA LATERAL CLINICAL HISTORY: Cough and SOB R05.9 COUGH R06.02 SOB TECHNIQUE: 2D digital imaging was performed of the chest. Two images were obtained. PA and lateral views were obtained. COMPARISON: CR XR CHEST 2V PA LATERAL from 07/30/2018 FINDINGS: MEDIASTINUM: Normal. HEART: Normal. PULMONARY VASCULATURE: Normal. LUNGS: Clear. PLEURAL SPACE: No pleural effusion or pneumothorax. BONE:Within normal limits for the patient's age. OTHER FINDINGS:Normal. IMPRESSION: No acute pulmonary findings. DATA REPOSITORY: RADIATION DOSE DELIVERED:
== END ==
PROVIDERS: PCP Family Medicine; Visit Provider Nurse Practitioner Family
DX: R05.8 Other specified cough (principal); R06.02 Shortness of breath
CPT/HCPCS: 71046

== ENCOUNTER 2023-09-26 01:47 | Outpatient (CLI) | payer OTHER, SELFPAY ==
[2023-09-26 13:29] LABS: COMMENT (LAB VIEW ONLY) 88.44 mg/dL; Microalb ug/mg Crea 12.6 ug/mg Cr
[2023-09-26 13:32] LABS: ALT 20 U/L (14-59); AST 11 U/L (15-37); Albumin 4.1 g/dL (3.4-5.0); Alkaline Phosphatase 98 U/L (46-116); Anion Gap 13.2 mmol/L (3-11); BUN 12 mg/dL (7-18); Bilirubin, Total 0.3 mg/dL (0.2-1.0); CO2 25.8 mmol/L (21.0-32.0); CREATININE 0.8 mg/dL (0.55-1.02); Calcium 9.7 mg/dL (8.5-10.1); Calculated LDL 185 mg/dL (<100); Chloride 98 mmol/L (98-107); Cholesterol 291 mg/dL (<200); Estimated GFR 89.71 (mL/min/1.73m2); Glucose 101 mg/dL (74-106); HDL Cholesterol 67 mg/dL (40-60); Potassium 3.5 mmol/L (3.5-5.1); Sodium 137 mmol/L (136-145); Total Protein 7.7 g/dL (6.4-8.2); Triglyceride 196 mg/dL (<150)
[2023-09-26 13:52] LABS: Vitamin D 25 Total 26.8 ng/mL (30-100)
== END 2023-09-26 01:48 | disposition home or self-care (01) ==
PROVIDERS: PCP Family Medicine; Visit Provider Family Medicine
DX: E11.9 Type 2 diabetes mellitus without complications (principal); I10 Essential (primary) hypertension; E55.9 Vitamin D deficiency, unspecified
CPT/HCPCS: 36415; 80053; 80061; 82306; 82043; 82570; 83036

== ENCOUNTER → 2023-11-05 01:17 | Outpatient (CLI) | payer OTHER, SELFPAY ==
--- NOTE | 2023-11-05 07:15 | DI.MAMMO_ITS ---
Exam(s) MAMMO SCREENING EXAM: MAMMO SCREENING CLINICAL HISTORY: screening,z12.39 TECHNIQUE: Bilateral full field digital CC and MLO mammographic images were obtained with 3D tomosyn thesis and utilizing computer aided detection (CAD). COMPARISON: Available for comparison. FINDINGS: Masses/Architectural Distortion: None seen. There is a biopsy clip again seen in the upper outer quad rant of the right breast. Microcalcifications: No suspicious pleomorphic-type are seen. Skin Thickening/Nipple Retraction: None. IMPRESSION: 1. No significant interval change with no specific features of malignancy noted. 2. Unless there is more urgent need, screening mammography is recommended, as per [employer] guidelines. BI-RADS Category 1 - Negative Breast Density - Category A - Almost entirely fatty Breast density category C or D implies that the patient has dense breast tissue. Dense breast tissue is very common and is not abnormal but dense breast tissue can make it harder to find cancer on a ma mmogram. Also, dense breast tissue may increase their breast cancer risk. This information about the result of the mammogram report was provided to the patient to raise their awareness. Use this report when you speak with the patient about their risks for breast cancer, which includes their family hist ory. At that time, you may recommend for more screening tests (Ultrasound or MRI) as they might be us eful based on their risk. A negative radiographic report should not delay biopsy if a dominant or clinically suspicious mass is present. Up to ten percent of cancers are not identified on mammography. A negative report may reinforce clinical impression. Adenosis and dense breasts may obscure an underlying neoplasm. False positive reports average 6 to 10%. Patient will receive a letter notifying them of these results.
== END ==
PROVIDERS: PCP Family Medicine; Visit Provider Family Medicine
DX: Z12.31 Encounter for screening mammogram for malignant neoplasm of breast (principal)
CPT/HCPCS: 77063; 77067

== ENCOUNTER 2024-08-19 01:06 | Outpatient (CLI) | payer OTHER, SELFPAY ==
[2024-08-19 13:25] LABS: Hemoglobin A1C 6.8 % (<5.7)
[2024-08-19 13:34] LABS: ALT 8 U/L (14-59); AST 11 U/L (15-37); Albumin 3.9 g/dL (3.4-5.0); Alkaline Phosphatase 119 U/L (46-116); Anion Gap 8.1 mmol/L (3-11); BUN 14 mg/dL (7-18); Bilirubin, Total 0.29 mg/dL (0.2-1.0); CO2 28.9 mmol/L (21.0-32.0); CREATININE 0.8 mg/dL (0.55-1.02); Calcium 9.7 mg/dL (8.5-10.1); Calculated LDL 113 mg/dL (<100); Chloride 103 mmol/L (98-107); Cholesterol 216 mg/dL (<200); Estimated GFR 89.15 (mL/min/1.73m2); Glucose 200 mg/dL (74-106); HDL Cholesterol 58 mg/dL (40-60); Potassium 4.4 mmol/L (3.5-5.1); Sodium 140 mmol/L (136-145); Total Protein 7.5 g/dL (6.4-8.2); Triglyceride 226 mg/dL (<150)
== END 2024-08-19 01:07 | disposition home or self-care (01) ==
LOC: LBO 01:06
PROVIDERS: PCP Family Medicine; Visit Provider Family Medicine
DX: I10 Essential (primary) hypertension (principal); E11.9 Type 2 diabetes mellitus without complications
CPT/HCPCS: 36415; 80053; 80061; 83036

== ENCOUNTER 2024-08-23 11:49 | Outpatient (REF) | payer OTHER, SELFPAY ==
[2024-08-23 14:56] LABS: COMMENT (LAB VIEW ONLY) 164.06 mg/dL; Microalb ug/mg Crea 9.8 ug/mg Cr
== END 2024-08-23 11:50 | disposition home or self-care (01) ==
LOC: LBN 11:49
PROVIDERS: PCP Family Medicine; Visit Provider Family Medicine
DX: E11.9 Type 2 diabetes mellitus without complications (principal)
CPT/HCPCS: 82043; 82570